=== PATIENT | female | born 1945 | race Caucasian/White ===

== ENCOUNTER 2020-03-28 05:35 | Emergency (ER) | payer MEDICARE, OTHER, SELFPAY ==
[2020-03-28] VITALS (10 sets, daily range): BP systolic 124–166; BP diastolic 58–101; PULSE 99–118; RESP 18–25; TEMP 36.6; O2SAT 92–100; BMI 22.4
--- NOTE | 2020-03-28 05:57 | DI.CT.S_ITS ---
PROCEDURE: CT KIDNEY URETER BLADDER (KUB) INDICATIONS: right flank pain TECHNIQUE: Noncontrast 5 mm thick sections acquired from the diaphragms to the symphysis. 5 mm thick coronal and sagittal reformats were then performed. For radiation dose reduction, the following was used: automated exposure control, adjustment of mA and/or kV according to patient size. COMPARISON: None. FINDINGS: Image quality: There is artifact associated with the metallic hardware. Lung bases: Emphysematous changes are seen at the lung bases. Heart size is normal. Prominent coronary artery calcifications can be seen. Urinary system: There is an oblong stone seen involving the right proximal ureter that measures 14 mm craniocaudal. There is associated moderate right-sided hydroureter and hydronephrosis. Right-sided perinephric fat stranding can be seen. A tiny 1 mm nonobstructing stone can be seen within the right kidney. Small left-sided stones are seen that measure up to 2 mm No left-sided hydronephrosis can be seen. Both kidneys are normal in size. Bladder wall thickness is normal; no calcified bladder stones. Other solid organs: Liver is normal in size. Gallbladder wall is not thickened. Potential minimal gallstones are seen. Pancreas is normal in contours. Spleen is normal in size. No adrenal nodules. Peritoneum and bowel: Unenhanced bowel loops demonstrate normal wall thickness and caliber. No free fluid or air. Colonic diverticulosis is seen, without findings of active diverticulitis. A moderate amount of stool is seen within the colon. A duodenal diverticulum is incidentally noted. Nodes and vessels: No retroperitoneal or mesenteric adenopathy by size criteria. Aorta and inferior vena cava are normal in caliber. Atherosclerotic calcification is noted. Abdominal wall: No ventral hernias. Pelvis: No free pelvic fluid. No inguinal hernias or adenopathy. The uterus is atrophic. No adnexal masses are seen. Bones: A left hip arthroplasty is seen, with associated streak artifact. No suspicious bony lesions. Moderate levoconvex lumbar scoliosis is seen. Relatively prominent lumbar spine degenerative changes are seen. There is a chronic appearing T12 compression deformity, with 50% loss of height centrally. IMPRESSION: 14 mm obstructing stone within the right proximal ureter, with associated hydronephrosis and perinephric fat stranding. There is a moderate amount of stool seen within the colon. Please correlate with an underlying history of constipation. Incidental note is made of: Emphysematous changes Atherosclerotic calcification, including involving the coronary arteries Potential minimal gallstones Duodenal diverticulum Moderate levoconvex scoliosis Remote appearing T12 compression deformity Prominent lumbar degenerative change Left hip arthroplasty, with streak artifact Atrophic uterus Diverticulosis, without active diverticulitis Note: No significant discrepancy from the preliminary report. Dictated by: Supa Hendricks M.D. on 03/28/2020 at 7:21 Approved by: Supa Hendricks M.D. on 03/28/2020 at 7:27
--- NOTE | 2020-03-28 06:23 | ED.ABDPAIN ---
HPI - Abdominal Pain General Chief Complaint: Abdominal Pain Stated Complaint: Pain on right side SOB Time Seen by Provider: 03/28/20 05:57 Source: patient and family Mode of arrival: Wheelchair Limitations: no limitations History of Present Illness HPI narrative: Patient is a 74-year-old female who presents with sudden onset of right flank pain radiating around her abdomen. She says she was doing well until about midnight when he suddenly started. She does feel like it is a dull ache and feels like she has to have a bowel movement but can not. She is feeling nauseated the pain waxes and wanes. She denies any hematuria. No prior history of kidney stones.. She does have a history of COPD on home oxygen but denies any worsening shortness of breath or chest pain MD complaint: abdominal pain Onset (ago): hour(s) Pain Consistency: constant Location: R flank Severity: moderate Quality: aching Radiation: RLQ Migration to: no migration Relieving factors: nothing Exacerbating factors: nothing Related Data Allergies Allergy/AdvReac Type Severity Reaction Status Date / Time No Known Drug Allergies Allergy Verified 03/28/20 05:58 Review of Systems Review of Systems Narrative: GENERAL: Denies chills, fatigue, malaise, fever, sweats, travel HEENT: Denies sinus pain, ear pain, sore throat, difficulty swallowing, neck pain RESPIRATORY: Denies dyspnea, cough, wheezing, hemoptysis, sputum. CARDIOVASCULAR: Denies chest pain, palpitations, orthopnea, edema GASTROINTESTINAL: See HPI : See HPI MUSCULOSKELETAL: Denies weakness, joint pain, or bony pain SKIN: No rash, no erythema, no pruritus NEUROLOGIC: Denies weakness, dizziness, headache, numbness, change in speech, confusion PSYCHIATRIC: No concerning psychosocial issues. 12 point review of systems is negative except for those stated above and HPI Patient History Medical History (Updated 03/28/20 @ 07:48 by Nai Sawyer DO) COPD (chronic obstructive pulmonary disease) Social History Smoking Status: Former smoker Smoking Status: Former smoker alcohol intake frequency: 0-2 drinks per day Substance Use Type: does not use Exam Initial Vital Signs Initial Vital Signs: Vital Signs Temperature 98 F 03/28/20 05:48 Pulse Rate 113 H 03/28/20 05:48 Respiratory Rate 25 H 03/28/20 05:48 Blood Pressure 166/101 H 03/28/20 05:48 Pulse Oximetry 99 03/28/20 05:48 GENERAL: Wall within alert 74-year-old female and in no acute distress. HEENT: Head atraumatic,EOMI, pupils reactive, face symmetric, moist mucous membranes CARDIOVASCULAR: Regular rate and rhythm without murmurs, rubs or gallops. RESPIRATORY: Breath sounds equal bilaterally, no wheezes rales or rhonchi. ABDOMEN: Soft, mild right lower quadrant pain. Normoactive bowel sounds all 4 quadrants. No guarding or rebound. : Right CVA tenderness EXTREMITIES: Normal range of motion, no clubbing or edema. Neurovascularly intact NEUROLOGICAL: Alert and oriented x4.Normal gait and speech. SKIN: Warm, dry, no laceration, no petechiae, no rashes or lesions. Course Orders Ordered: Discontinued Medications Ceftriaxone Sodium/Dextrose (Rocephin) 1 gm in 50 mls @ 100 mls/hr IV NOW ONE Stop: 03/28/20 07:29 Last Infusion: 03/28/20 09:15 Dose: 0 mls/hr Documented by: Admin: 03/28/20 07:30 Dose: 100 mls/hr Documented by: JESSIE Sodium Chloride (Normal Saline 0.9%) 1,000 mls @ 150 mls/hr IV CONT DAVID Last Infusion: 03/28/20 09:50 Dose: 150 mls/hr Documented by: Infusion: 03/28/20 09:50 Dose: 150 mls/hr Documented by: Admin: 03/28/20 07:30 Dose: 150 mls/hr Documented by: JESSIE Ketorolac Tromethamine (Ketorolac 60 Mg/2 Ml Vial) 30 mg IV NOW ONE Stop: 03/28/20 05:58 Last Admin: 03/28/20 06:32 Dose: 30 mg Documented by: JESSIE Ondansetron HCl (Ondansetron 4 Mg/2 Ml Inj) 4 mg IV NOW ONE Stop: 03/28/20 05:58 Last Admin: 03/28/20 06:31 Dose: 4 mg Documented by: JESSIE Vital Signs Vital signs: Vital Signs - 8 hr 03/28/20 05:48 Temperature 98 F Pulse Rate 113 H Respiratory Rate 25 H Blood Pressure 166/101 H Pulse Oximetry 99 MDM - Abdominal Pain Lab Data Attestation: I reviewed the patient's lab results. Result diagrams: 03/28/20 06:30 03/28/20 06:30 Labs: Lab Results 03/28/20 03/28/20 03/28/20 Range/Units 06:25 06:30 06:30 WBC 19.4 H (4.5-11.0) X10^3/uL RBC 3.69 L (4.0-5.2) X10^6/uL Hgb 10.8 L (12.0-16.0) g/dL Hct 33.8 L (36-46) % MCV 91.6 (80-100) fL MCH 29.3 (26-34) PG MCHC 32.0 (30-36) % RDW 13.0 (11.6-14.8) % Plt Count 322 (150-400) X10^3/uL Neut % (Auto) 91.5 H (50-75) % Lymph % (Auto) 2.0 L (25-40) % [place] % (Auto) 6.4 (3-14) % Eos % (Auto) 0.1 L (2-4) % Baso % (Auto) 0.0 (0-2) % Neut # (Auto) 33464 H (6018-4456) /uL Lymph # (Auto) 400 L (0733-3998) /uL [place] # (Auto) 1200 H (0-900) /uL Eos # (Auto) 0 (0-450) /uL Baso # (Auto) 0 (0-100) /uL Sodium 136 L (137-145) mmol/L Potassium 4.4 (3.4-5.1) mmol/L Chloride 97 L (98-107) mmol/L Carbon Dioxide 36 H (22-32) mmol/L BUN 13 (7-17) mg/dL Creatinine 0.55 (0.52-1.04) mg/dL Estimated GFR > 60.0 (>60) mL/min BUN/Creatinine Ratio 23.6 H (6-22) Glucose 150 H (80-110) mg/dL Lactate (0.7-2.1) mmol/L Calcium 9.8 (8.4-10.2) mg/dL Total Bilirubin 0.6 (0.2-1.3) mg/dL AST 28 (14-36) IU/L ALT 20 (<35) IU/L Alkaline Phosphatase 59 (38-126) U/L Total Protein 7.8 (6.3-8.2) g/dL Albumin 4.4 (3.5-5.0) g/dL Globulin 3.4 (1.7-4.1) g/dL Albumin/Globulin Ratio 1.3 (1.0-2.8) Lipase 26 (23-300) U/L Urine RBC None seen (0-5/HPF) Urine WBC 5-10/hpf H (0-5/HPF) Ur Squamous Epith Cells 0-1 /hpf (0-5/HPF) Urine Bacteria Many (>30) H (None) Ur Culture Indicated? Specimen cultured COVID-19 PCR (Negative) 03/28/20 03/28/20 Range/Units 06:30 07:54 WBC (4.5-11.0) X10^3/uL RBC (4.0-5.2) X10^6/uL Hgb (12.0-16.0) g/dL Hct (36-46) % MCV (80-100) fL MCH (26-34) PG MCHC (30-36) % RDW (11.6-14.8) % Plt Count (150-400) X10^3/uL Neut % (Auto) (50-75) % Lymph % (Auto) (25-40) % [place] % (Auto) (3-14) % Eos % (Auto) (2-4) % Baso % (Auto) (0-2) % Neut # (Auto) (8199-0564) /uL Lymph # (Auto) (1358-0446) /uL [place] # (Auto) (0-900) /uL Eos # (Auto) (0-450) /uL Baso # (Auto) (0-100) /uL Sodium (137-145) mmol/L Potassium (3.4-5.1) mmol/L Chloride (98-107) mmol/L Carbon Dioxide (22-32) mmol/L BUN (7-17) mg/dL Creatinine (0.52-1.04) mg/dL Estimated GFR (>60) mL/min BUN/Creatinine Ratio (6-22) Glucose (80-110) mg/dL Lactate 1.8 (0.7-2.1) mmol/L Calcium (8.4-10.2) mg/dL Total Bilirubin (0.2-1.3) mg/dL AST (14-36) IU/L ALT (<35) IU/L Alkaline Phosphatase (38-126) U/L Total Protein (6.3-8.2) g/dL Albumin (3.5-5.0) g/dL Globulin (1.7-4.1) g/dL Albumin/Globulin Ratio (1.0-2.8) Lipase (23-300) U/L Urine RBC (0-5/HPF) Urine WBC (0-5/HPF) Ur Squamous Epith Cells (0-5/HPF) Urine Bacteria (None) Ur Culture Indicated? COVID-19 PCR Negative (Negative) Point of care testing: Urine Dip Bedside Urine Glucose Negative Bedside Urine Bilirubin - Negative Bedside Urine Ketone +/- 5 Urine Specific [place] 1.020 Bedside Urine Occult Blood +++ Bedside Urine pH 7.5 Bedside Urine Protein +/- 15 Bedside Urine Urobilinogen - Negative Bedside Urine Nitrite + Positive Bedside Urine Leukocytes +/- [address] scan - abdomen/pelvis: Radiologist's Impression: Preliminary report 14 x 8.2 x 7 mm stone at the right ureteropelvic junction. Moderate to severe right hydronephrosis. Right perinephric stranding. No other stones in the kidney. MDM Narrative Medical decision making narrative: Patient is found have a large right-sided kidney stone and leukocytosis along with UTI. Concern for infected kidney stone. The patient overall is hemodynamically stable slightly tachycardic but blood pressure remained stable. She is afebrile. Lactate and blood cultures have been added with UTI found it No local on-call Urology at [facility]. 7:[address] Lazo Urology at [facility] updated patient's symptoms test results happy to consult 7:40 a.m. , hospitalist at [facility] happy to accept patient urology consult Discharge Plan Departure Patient Disposition: [facility] Clinical Impression: Acute UTI, Kidney stone on right side
[2020-03-28] MEDS: ONDANSETRON 4 MG/2 ML INJ IV (06:31)
[2020-03-28] MEDS: KETOROLAC 60 MG/2 ML VIAL 30 MG IV (06:32)
[2020-03-28 06:35] LABS: Add Manual Diff / Slide Review NO; Basophils Absolute Auto 0 /uL (0-100); Eosinophils Absolute Auto 0 /uL (0-450); Eosinophils Percent Auto 0.1 % (2-4); Hematocrit 33.8 % (36-46); Hemoglobin 10.8 g/dL (12.0-16.0); Lymphocytes Absolute Auto 400 /uL (1100-4500); Mean Corpuscular Hemoglobin 29.3 PG (26-34); Mean Corpuscular Volume 91.6 fL (80-100); Monocytes Absolute Auto 1200 /uL (0-900); Monocytes Percent Auto 6.4 % (3-14); Neutrophils Absolute Auto 17700 /uL (1500-7000); Neutrophils Percent Auto 91.5 % (50-75); Platelet Count 322 X10^3/uL (150-400); Red Blood Cell Count 3.69 X10^6/uL (4.0-5.2); White Blood Cell Count 19.4 X10^3/uL (4.5-11.0)
[2020-03-28 06:37] LABS: RBC Urine None Seen (0-5/HPF)
[2020-03-28 06:46] LABS: Alanine Aminotransferase 20 IU/L (<35); Albumin 4.4 g/dL (3.5-5.0); Albumin Globulin Ratio 1.3 (1.0-2.8); Alkaline Phosphatase 59 U/L (38-126); Aspartate Aminotransferase 28 IU/L (14-36); BUN Creatinine Ratio 23.6 (6-22); Bilirubin Total 0.6 mg/dL (0.2-1.3); Blood Urea Nitrogen 13 mg/dL (7-17); Calcium 9.8 mg/dL (8.4-10.2); Carbon Dioxide 36 mmol/L (22-32); Chloride 97 mmol/L (98-107); Estimated Glomerular Filt Rate > 60.0 mL/min (>60); Globulin 3.4 g/dL (1.7-4.1); Glucose 150 mg/dL (80-110); HEMOLYSIS < 15 (0-50); Lipase 26 U/L (23-300); Potassium 4.4 mmol/L (3.4-5.1); Sodium 136 mmol/L (137-145); Total Protein 7.8 g/dL (6.3-8.2)
[2020-03-28 06:52] LABS: Bacteria Urine Many (>30); Culture Indicated Urine Specimen Cultured; Squamous Epithelial Cell Urine 0-1 /HPF (0-5/HPF); WBC Urine 5-10/HPF (0-5/HPF)
[2020-03-28] MEDS: CEFTRIAXONE 1 GM/50 ML FROZ.PIGGY IV (07:30)
[2020-03-28] MEDS: SODIUM CHLORIDE 0.9% 1,000 ML 150 ML IV (07:30)
[2020-03-28 07:43] LABS: Lactate (Lactic Acid) 1.8 mmol/L (0.7-2.1)
[2020-03-28 08:18] LABS: COVID19 -Nasal RAPID Negative (Negative)
--- NOTE | 2020-03-29 15:24 | PC.NURSE ---
Preliminary reports for urine and blood cultures faxed to [facility] in [facility] for continuity of care
[2020-03-29 19:38] LABS: Acinetobacter baumannii Not Detected (Not Detect); Candida albicans Not Detected (Not Detect); Candida glabrata Not Detected (Not Detect); Candida krusei Not Detected (Not Detect); Candida parapsilosis Not Detected (Not Detect); Candida tropicalis Not Detected (Not Detect); E. coli Not Detected (Not Detect); Enterobacter cloacae complex Not Detected (Not Detect); Enterococcus species Not Detected (Not Detect); Haemophilus influenzae Not Detected (Not Detect); KPC (carbapenem-resist gene) Not Detected (Not Detect); Listeria monocytogenes Not Detected (Not Detect); Methicillin-resistant gene Not Detected (Not Detect); Neisseria meningitidis Not Detected (Not Detect); Pseudomonas aeruginosa Not Detected (Not Detect); Serratia marcescens Not Detected (Not Detect); Staphylococcus species Not Detected (Not Detect); Streptococcus agalactiae (Gr B Not Detected (Not Detect); Streptococcus pneumonia Not Detected (Not Detect); Streptococcus pyogenes (Gr A) Not Detected (Not Detect); Streptococcus species Not Detected (Not Detect); Vancomycin-rest genes A/B Not Detected (Not Detect)
[2020-03-29 19:39] LABS: Enterobacteriaceae species Detected (Not Detect); Proteus species Detected (Not Detect)
== END 2020-03-28 10:08 | disposition short-term general hospital (02) ==
PROVIDERS: Emergency Provider Emergency Medicine
DX: N39.0 Urinary tract infection, site not specified (principal); N20.0 Calculus of kidney; Z20.828 Contact with and (suspected) exposure to other viral communicable diseases; N13.30 Unspecified hydronephrosis; D72.829 Elevated white blood cell count, unspecified; R00.0 Tachycardia, unspecified
CPT/HCPCS: 36415; 74176; 80053; 81003; 81015; 83605; 83690; 85025; 87040; 87077; 87086; 87150; 87186; 87205; 87635; 96361; 96365; 96366; 96375; 99285; J1885; J2405

== ENCOUNTER 2020-11-07 10:43 | Emergency (ER) | payer MEDICARE, OTHER, SELFPAY ==
--- NOTE | 2020-11-07 10:51 | DI.RAD.S_ITS ---
PROCEDURE: XR HIP W PEL IF DONE LT 2V INDICATIONS: severe left hip pain, no obvious injury TECHNIQUE: AP pelvis with lateral view(s) of the left hip(s). COMPARISON: None. FINDINGS: Bones: No fractures or dislocations. Pelvic ring appears intact. No suspicious bony lesions. Left hip arthroplasty hardware is seen. No findings of hardware failure or hardware loosening are seen. Age-appropriate lower lumbar spine degenerative changes are noted. Soft tissues: The visualized bowel gas pattern is normal. No suspicious soft tissue calcifications. IMPRESSION: Unremarkable left hip arthroplasty hardware by plain film. Dictated by: Supa Hendricks M.D. on 11/07/2020 at 10:18 Approved by: Supa Hendricks M.D. on 11/07/2020 at 10:18
[2020-11-07 10:56] VITALS: BP 144/94; PULSE 90; RESP 16; TEMP 36.4; O2SAT 98; BMI 23.1
--- NOTE | 2020-11-07 11:50 | ED_ITS ---
HPI - Extremity Problem General Chief complaint: Extremity Problem,Nontraumatic Stated complaint: PAIN LEFT HIP Time Seen by Provider: 11/07/20 10:48 History of Present Illness HPI Narrative: 75-year-old female former smoker with history of COPD on home oxygen and history of chronic low back and hip pain presents with her son in a wheelchair and a chief complaint of increased pain. She denies any injury. She denies any fever or chills. She denies any trouble controlling bowel or bl adder. She denies any numbness or tingling. She does state that she has pain in her left lower back and goes down her leg to just above the knee. She has been in sufficient pain that has been affecting her appetite but she denies vomiting or diarrhea. Related Data Home Medications Medication Instructions Recorded Confirmed albuterol sulfate 90 mcg/actuation 90 mcg INHALATION PRN 11/07/20 aerosol inhaler (ProAir HFA) apixaban 5 mg tablet (Eliquis) 5 mg PO BID 11/07/20 11/07/20 atorvastatin 20 mg tablet 20 mg PO DAILY 11/07/20 11/07/20 citalopram 20 mg tablet 20 mg PO DAILY 11/07/20 11/07/20 diltiazem HCl 120 mg 120 mg PO DAILY 11/07/20 11/07/20 capsule,extended release 24 hr fluticasone 250 mcg-salmeterol 50 INHALATION 11/07/20 mcg/dose blistr powdr for inhalation (Advair Diskus) fluticasone propionate 50 50 mcg INTRANASAL BID 11/07/20 11/07/20 mcg/actuation nasal spray,suspension gabapentin 300 mg capsule 300 mg PO TID 11/07/20 11/07/20 hydrocodone 7.5 mg-acetaminophen 1 tab PO QID 11/07/20 11/07/20 325 mg tablet ibandronate 150 mg tablet 150 mg PO DAILY 11/07/20 11/07/20 levalbuterol HCl 1.25 mg/3 mL 1.25 mg INHALATION Q8HR 11/07/20 11/07/20 solution for nebulization montelukast 10 mg tablet 10 mg PO DAILY 11/07/20 11/07/20 tiotropium bromide 2.5 2.5 mcg INHALATION BID 11/07/20 11/07/20 mcg/actuation mist for inhalation (Spiriva Respimat) Previous Rx's Medication Instructions Recorded hydrocodone 5 mg-acetaminophen 325 1 tab PO Q4-6H PRN #30 tab 11/07/20 mg tablet methylprednisolone 4 mg tablets in See Rx Instructions .ROUTE 11/07/20 a dose pack (Medrol ([place])) .COMPLEX #21 ea Allergies Allergy/AdvReac Type Severity Reaction Status Date / Time No Known Drug Allergies Allergy Verified 03/28/20 05:58 Review of Systems Review of Systems Narrative: GENERAL: Denies chills, fatigue, malaise, fever, sweats. HEENT: Denies sinus pain, ear pain, sore throat, difficulty swallowing, dizziness. RESPIRATORY: Denies dyspnea, cough, wheezing, hemoptysis, sputum. CARDIOVASCULAR: Denies chest pain, palpitations, orthopnea, edema, GASTROINTESTINAL: Denies nausea, vomiting, abdominal pain, diarrhea, constipation, melena. : Denies dysuria, frequency, incontinence, hematuria, urinary retention. MUSCULOSKELETAL: denies weakness, joint pain, or bony pain SKIN: Denies rash, skin lesions, or other NEUROLOGIC: Denies weakness, headache, numbness, change in speech, confusion, seizures, incoordination. PSYCHIATRIC: No concerning psychosocial issues. 12 point review of systems is negative except for those stated above Patient History Medical History (Updated 11/07/20 @ 14:22 by Efraín Londono DO) COPD (chronic obstructive pulmonary disease) Social History Smoking Status: Former smoker Smoking Status: Former smoker alcohol intake frequency: 0-2 drinks per day Substance Use Type: does not use Exam Narrative Exam Narrative: GENERAL: [75] year old patient appears stated age. Well- developed patient, in mild distress. Frail and elderly HEAD: Atraumatic. Normocephalic. EYES: Pupils equal round and reactive. Extraocular motions intact. No scleral icterus. No injection or drainage. ENT: Moist mucous membranes Nose without bleeding, purulent drainage. Throat without erythema, tonsillar hypertrophy or exudate. Airway patent. NECK: Trachea midline. Non tender CARDIOVASCULAR: Regular rate and rhythm without murmurs, gallops, or rubs. RESPIRATORY: Clear to auscultation. Breath sounds equal bilaterally. No wheezes, rales, or rhonchi. GASTROINTESTINAL: Abdomen soft, non-tender, nondistended. EXTREMITIES: No edema or joint tenderness. BACK: friction paint machine tender but free of any obvious external abnormalities. Patient exam notes decreased range of motion and muscle spasm, but no CVA tenderness, or ve rtebral point tenderness. There are no symptoms of cauda equina such as saddle anesthesia, and decreased reflexes, decreased sensation or strength. NEURO: AOx3. SKIN: No rash or erythema of visible areas Initial Vital Signs Initial Vital Signs: Vital Signs Temperature 97.6 F 11/07/20 10:56 Pulse Rate 90 11/07/20 10:56 Respiratory Rate 16 11/07/20 10:56 Blood Pressure 144/94 H 11/07/20 10:56 Pulse Oximetry 98 11/07/20 10:56 Course Orders Ordered: Discontinued Medications Cyclobenzaprine HCl (Cyclobenzaprine 10 Mg Tablet) 10 mg PO NOW ONE Stop: 11/07/20 12:49 Last Admin: 11/07/20 12:52 Dose: 10 mg Documented by: [email or web address] Fentanyl (Fentanyl 100 Mcg/2 Ml Inj) 50 mcg IV NOW ONE Stop: 11/07/20 12:06 Last Admin: 11/07/20 12:14 Dose: 50 mcg Documented by: [email or web address] Sodium Chloride (Normal Saline 0.9%) 1,000 mls @ 1,000 mls/hr IV BOLUS ONE Stop: 11/07/20 13:04 Last Infusion: 11/07/20 14:37 Dose: 0 mls/hr Documented by: [email or web address] Admin: 11/07/20 12:14 Dose: 1,000 mls/hr Documented by: [email or web address] Reevaluation(s) Reevaluation #1: Patient is feeling significant improvement in symptoms after the above-stated therapies. Vital Signs Vital signs: Vital Signs - 8 hr 11/07/20 10:56 11/07/20 12:41 Temperature 97.6 F Pulse Rate 90 98 H Respiratory Rate 16 14 Blood Pressure 144/94 H 163/78 H Pulse Oximetry 98 100 MDM - Extremity (Nontraumatic) Lab Data Result diagrams: 11/07/20 12:23 11/07/20 12:23 Labs: Lab Results 11/07/20 11/07/20 Range/Units 12:23 12:23 WBC 5.0 (4.5-11.0) X10^3/uL RBC 3.18 L (4.0-5.2) X10^6/uL Hgb 10.1 L (12.0-16.0) g/dL Hct 31.2 L (36-46) % MCV 98.2 (80-100) fL MCH 31.8 (26-34) PG MCHC 32.4 (30-36) % RDW 14.7 (11.6-14.8) % Plt Count 243 (150-400) X10^3/uL Neut % (Auto) 72.2 (50-75) % Lymph % (Auto) 15.3 L (25-40) % [place] % (Auto) 10.9 (3-14) % Eos % (Auto) 1.2 L (2-4) % Baso % (Auto) 0.4 (0-2) % Neut # (Auto) 3600 (1203-8812) /uL Lymph # (Auto) 800 L (5363-9737) /uL [place] # (Auto) 500 (0-900) /uL Eos # (Auto) 100 (0-450) /uL Baso # (Auto) 0 (0-100) /uL Sodium 132 L (137-145) mmol/L Potassium 4.2 (3.4-5.1) mmol/L Chloride 100 (98-107) mmol/L Carbon Dioxide 27 (22-32) mmol/L BUN 10 (7-17) mg/dL Creatinine 0.50 L (0.52-1.04) mg/dL Estimated GFR > 60.0 (>60) mL/min BUN/Creatinine Ratio 20.0 (6-22) Glucose 106 (80-110) mg/dL Calcium 8.8 (8.4-10.2) mg/dL MDM Narrative Medical decision making narrative: Multiple etiologies of back pain considered including; Epidural abscess, cauda equina, mass occupying lesion, and other considered, however no red flag findings suggestive of neurosurgical emergency are present. History, physical, imaging and labs are reassuring. Improvement of symptoms with traditional therapies is reassuring. Patient given extensive return precautions and questions answered to her apparent satisfaction Discharge Plan Departure Patient Disposition: Home Clinical Impression: Acute hip pain Qualifiers: Laterality: left Qualified Code(s): M25.552 - Pain in left hip Instructions: DI for Hip Pain Activity Restrictions/Additional Instructions: *You have been diagnosed with [acute on chronic hip pain] *What to do: *Please continue to take your regular medications as directed. [x ] New medication prescriptions sent to your pharmacy: [ ] [ ] New medication written as a paper prescription [ ] No new medications given *Please follow up with your primary care provider in 2-3 days, call for an appointment. Let them know you were seen in the Emergency Department and that we ask that you be seen in follow up. We will electronically transmit a record of today's note if your PCP is in our system *If you do not have a primary care provider please contact the [facility] Resource line at [phone]. They will ask some questions about your medical history and help get you set up with a doctor in the community. *Return to Emergency Department if you should have any new, worsening or concerning symptoms, such as [fever greater than 101 F, shaking chills, worsening pain, persistent vomiting or other bothersome symptoms] Prescriptions: New hydrocodone-acetaminophen 5-325 mg tablet 1 tab PO Q4-6H PRN (Reason: pain) Qty: 30 RF: 0 methylprednisolone [Medrol ([place])] 4 mg tablets,dose pack See Rx Instructions .ROUTE .COMPLEX Qty: 21 RF: 0 No Action fluticasone propion-salmeterol [Advair Diskus] 250-50 mcg/dose blister with device INHALATION RF: 0 atorvastatin 20 mg tablet 20 mg PO DAILY RF: 0 citalopram 20 mg tablet 20 mg PO DAILY RF: 0 hydrocodone-acetaminophen 7.5-325 mg tablet 1 tab PO QID RF: 0 gabapentin 300 mg capsule 300 mg PO TID RF: 0 diltiazem HCl 120 mg capsule,extended release 24hr 120 mg PO DAILY RF: 0 montelukast 10 mg tablet 10 mg PO DAILY RF: 0 levalbuterol HCl 1.25 mg/3 mL solution for nebulization 1.25 mg INHALATION Q8HR RF: 0 albuterol sulfate [ProAir HFA] 90 mcg/actuation HFA aerosol inhaler 90 mcg INHALATION PRN (Reason: Bronchodilation) RF: 0 fluticasone propionate 50 mcg/actuation spray,suspension 50 mcg INTRANASAL BID RF: 0 ibandronate 150 mg tablet 150 mg PO DAILY RF: 0 Spiriva Respimat 2.5 mcg/actuation mist 2.5 mcg INHALATION BID RF: 0 Eliquis 5 mg tablet 5 mg PO BID RF: 0
[2020-11-07] MEDS: fentaNYL 100 MCG/2 ML INJ 50 MCG IV (12:14)
[2020-11-07] MEDS: SODIUM CHLORIDE 0.9% 1,000 ML 1000 ML IV (12:14)
[2020-11-07 12:31] LABS: Add Manual Diff / Slide Review NO; Basophils Absolute Auto 0 /uL (0-100); Basophils Percent Auto 0.4 % (0-2); Eosinophils Absolute Auto 100 /uL (0-450); Eosinophils Percent Auto 1.2 % (2-4); Hematocrit 31.2 % (36-46); Hemoglobin 10.1 g/dL (12.0-16.0); Lymphocytes Absolute Auto 800 /uL (1100-4500); Lymphocytes Percent Auto 15.3 % (25-40); Mean Corpuscular HGB Conc 32.4 % (30-36); Mean Corpuscular Hemoglobin 31.8 PG (26-34); Mean Corpuscular Volume 98.2 fL (80-100); Monocytes Absolute Auto 500 /uL (0-900); Monocytes Percent Auto 10.9 % (3-14); Neutrophils Absolute Auto 3600 /uL (1500-7000); Neutrophils Percent Auto 72.2 % (50-75); Platelet Count 243 X10^3/uL (150-400); Red Blood Cell Count 3.18 X10^6/uL (4.0-5.2); Red Cell Distribution Width 14.7 % (11.6-14.8)
[2020-11-07 12:41] VITALS: BP 163/78; PULSE 98; RESP 14; O2SAT 100
[2020-11-07 12:42] LABS: Blood Urea Nitrogen 10 mg/dL (7-17); Calcium 8.8 mg/dL (8.4-10.2); Carbon Dioxide 27 mmol/L (22-32); Chloride 100 mmol/L (98-107); Estimated Glomerular Filt Rate > 60.0 mL/min (>60); Glucose 106 mg/dL (80-110); HEMOLYSIS < 15 (0-50); Potassium 4.2 mmol/L (3.4-5.1); Sodium 132 mmol/L (137-145)
[2020-11-07] MEDS: CYCLOBENZAPRINE 10 MG TABLET PO (12:52)
[2020-11-07 13:00] VITALS: PULSE 97; O2SAT 100
[2020-11-07 13:01] VITALS: BP 187/95; PULSE 103; O2SAT 100
[2020-11-07 14:38] VITALS: BP 189/105; PULSE 98; RESP 18; O2SAT 100
== END 2020-11-07 14:39 | disposition home or self-care (01) ==
PROVIDERS: Emergency Provider Emergency Medicine
DX: M25.552 Pain in left hip (principal)
CPT/HCPCS: 36415; 73502; 80048; 85025; 96361; 96374; 99284; J3010

== ENCOUNTER 2020-12-03 02:47 | Observation (INO) | payer MEDICARE, OTHER, SELFPAY ==
[2020-12-03] VITALS (15 sets, daily range): BP systolic 103–147; BP diastolic 50–84; PULSE 77–111; RESP 14–20; TEMP 36.2–36.9; O2SAT 96–100; BMI 23.5
--- NOTE | 2020-12-03 02:58 | ED_ITS ---
HPI - GI Bleed General Chief complaint: GI Bleed Stated complaint: anal bleeding Time Seen by Provider: 12/03/20 02:50 History of Present Illness HPI Narrative: 75-year-old female former smoker with COPD on home oxygen at 3 L (5 L when she goes out), on Eliquis for AFib presents with her son and a chief complaint of a large amount of painless bright red bleeding per rectum this evening. She is not dizzy nor weak nor lightheaded. She was at home and had bleeding and was attempting to clean it up, and in doing so lost her balance and fell over. She denies hitting her head nor suffering any injury as a consequence of that fall. She denies any history of GI bleeding in the past. On further questioning she does describe some crampy lower abdominal discomfort. She denies any recent change in medications or diet. Related Data Home Medications Medication Instructions Recorded Confirmed albuterol sulfate 90 mcg/actuation 90 mcg INHALATION PRN 11/07/20 aerosol inhaler (ProAir HFA) apixaban 5 mg tablet (Eliquis) 5 mg PO BID 11/07/20 11/07/20 atorvastatin 20 mg tablet 20 mg PO DAILY 11/07/20 11/07/20 citalopram 20 mg tablet 20 mg PO DAILY 11/07/20 11/07/20 diltiazem HCl 120 mg 120 mg PO DAILY 11/07/20 11/07/20 capsule,extended release 24 hr fluticasone 250 mcg-salmeterol 50 INHALATION 11/07/20 mcg/dose blistr powdr for inhalation (Advair Diskus) fluticasone propionate 50 50 mcg INTRANASAL BID 11/07/20 11/07/20 mcg/actuation nasal spray,suspension gabapentin 300 mg capsule 300 mg PO TID 11/07/20 11/07/20 hydrocodone 7.5 mg-acetaminophen 1 tab PO QID 11/07/20 11/07/20 325 mg tablet ibandronate 150 mg tablet 150 mg PO DAILY 11/07/20 11/07/20 levalbuterol HCl 1.25 mg/3 mL 1.25 mg INHALATION Q8HR 11/07/20 11/07/20 solution for nebulization montelukast 10 mg tablet 10 mg PO DAILY 11/07/20 11/07/20 tiotropium bromide 2.5 2.5 mcg INHALATION BID 11/07/20 11/07/20 mcg/actuation mist for inhalation (Spiriva Respimat) Previous Rx's Medication Instructions Recorded hydrocodone 5 mg-acetaminophen 325 1 tab PO Q4-6H PRN #30 tab 11/07/20 mg tablet methylprednisolone 4 mg tablets in See Rx Instructions .ROUTE 11/07/20 a dose pack (Medrol ([place])) .COMPLEX #21 ea Allergies Allergy/AdvReac Type Severity Reaction Status Date / Time No Known Drug Allergies Allergy Verified 03/28/20 05:58 Review of Systems Review of Systems Narrative: GENERAL: Denies chills, fatigue, malaise, fever, sweats. HEENT: Denies sinus pain, ear pain, sore throat, difficulty swallowing, dizzi ness. RESPIRATORY: Denies dyspnea, cough, wheezing, hemoptysis, sputum. CARDIOVASCULAR: Denies chest pain, palpitations, orthopnea, edema, GASTROINTESTINAL: See HPI : Denies dysuria, frequency, incontinence, hematuria, urinary retention. MUSCULOSKELETAL: denies weakness, joint pain, or bony pain SKIN: Denies rash, skin lesions, or other NEUROLOGIC: Denies weakness, headache, numbness, change in speech, confusion, seizures, incoordination. PSYCHIATRIC: No concerning psychosocial issues. 12 point review of systems is negative except for those stated above Patient History Medical History COPD (chronic obstructive pulmonary disease) Social History Smoking Status: Former smoker Smoking Status: Former smoker alcohol intake frequency: 0-2 drinks per day Substance Use Type: does not use Exam Narrative Exam Narrative: GENERAL: [75 year old patient appears stated age. Chronically ill, requires some assistance getting from cart but no significant distress HEAD: Atraumatic. Normocephalic. EYES: Pupils equal round and reactive. Extraocular motions intact. No scleral icterus. No injection or drainage. ENT: Nose without bleeding, purulent drainage. Throat without erythema, ton sillar hypertrophy or exudate. Airway patent. NECK: Trachea midline. Non tender CARDIOVASCULAR: Regular rate and rhythm without murmurs, gallops, or rubs. RESPIRATORY: No significant work of breathing, prolonged expiratory phase with decreased breath sounds bilaterally GASTROINTESTINAL: Abdomen soft, non-tender, nondistended. RECTAL: multiple external hemorrhoids, no obvious bleeding. Bright red blood noted on her underwear and also papertowel, no obvious active bleeding on digital rectal exam. This portion of exam performed with patient permission and female nursing device processing engineer at the bedside EXTREMITIES: No edema or joint tenderness. BACK: Nontender without deformity or crepitance. No flank tenderness. NEURO: AOx3. SKIN: No rash or erythema of visible areas Initial Vital Signs Initial Vital Signs: Vital Signs Temperature 98.5 F 12/03/20 03:00 Pulse Rate 111 H 12/03/20 03:00 Respiratory Rate 20 12/03/20 03:00 Blood Pressure 116/76 12/03/20 03:00 Pulse Oximetry 98 12/03/20 03:00 Course Orders Ordered: ED Orders 12/03/20 02:57 COVID19 - ADMIT (ACTIVITIES COUNSELOR swab/PCR) Stat 12/03/20 03:10 Complete Blood Count AUTO DIFF Stat Comprehensive Metabolic Panel Stat Partial Thromboplastin Time Stat Prothrombin Time INR Stat Type and Screen Stat 12/03/20 03:31 EKG-12 Lead Stat Acetaminophen (Acetaminophen 325 Mg Tablet) 650 mg PO Q6HR PRN PRN Reason: Fever/Mild Pain (1-3) Atorvastatin Calcium (Atorvastatin 20 Mg Tablet) 20 mg PO DAILY DAVID Diltiazem HCl (Diltiazem Cd 120 Mg Cap) 120 mg PO DAILY DAVID Montelukast Sodium (Montelukast 10 Mg Tablet) 10 mg PO DAILY DAVID Naloxone HCl (Naloxone 0.4 Mg/Ml Vial) 0.2 mg IV Q2MIN PRN PRN Reason: Opiate Reversal Non-Formulary Medication (Citalopram) 20 mg PO DAILY DAVID Discontinued Medications Pantoprazole Sodium (Pantoprazole 40 Mg Vial) 80 mg IV NOW ONE Stop: 12/03/20 02:58 Last Admin: 12/03/20 03:12 Dose: 80 mg Documented by: CINDY Vital Signs Vital signs: Vital Signs - 8 hr 12/03/20 03:00 Temperature 98.5 F Pulse Rate 111 H Respiratory Rate 20 Blood Pressure 116/76 Pulse Oximetry 98 MDM - GI Bleed Lab Data Result diagrams: 12/03/20 03:10 12/03/20 03:10 Labs: Lab Results 12/03/20 12/03/20 12/03/20 Range/Units 03:10 03:10 03:10 WBC 7.8 (4.5-11.0) X10^3/uL RBC 3.03 L (4.0-5.2) X10^6/uL Hgb 9.5 L (12.0-16.0) g/dL Hct 29.4 L (36-46) % MCV 97.1 (80-100) fL MCH 31.2 (26-34) PG MCHC 32.2 (30-36) % RDW 13.1 (11.6-14.8) % Plt Count 228 (150-400) X10^3/uL Neut % (Auto) 79.4 H (50-75) % Lymph % (Auto) 11.5 L (25-40) % [place] % (Auto) 7.6 (3-14) % Eos % (Auto) 1.2 L (2-4) % Baso % (Auto) 0.3 (0-2) % Neut # (Auto) 6200 (9508-2002) /uL Lymph # (Auto) 900 L (5917-8417) /uL [place] # (Auto) 600 (0-900) /uL Eos # (Auto) 100 (0-450) /uL Baso # (Auto) 0 (0-100) /uL PT (10.1-12.7) SECONDS INR (0.9-1.3) APTT (26.4-36.2) SECONDS Sodium 133 L (137-145) mmol/L Potassium 4.5 (3.4-5.1) mmol/L Chloride 95 L (98-107) mmol/L Carbon Dioxide 34 H (22-32) mmol/L BUN 11 (7-17) mg/dL Creatinine 0.58 (0.52-1.04) mg/dL Estimated GFR > 60.0 (>60) mL/min BUN/Creatinine Ratio 19.0 (6-22) Glucose 137 H (80-110) mg/dL Calcium 9.1 (8.4-10.2) mg/dL Total Bilirubin 0.3 (0.2-1.3) mg/dL AST 18 (14-36) IU/L ALT 9 (<35) IU/L Alkaline Phosphatase 75 (38-126) U/L Total Protein 6.5 (6.3-8.2) g/dL Albumin 3.6 (3.5-5.0) g/dL Globulin 2.9 (1.7-4.1) g/dL Albumin/Globulin Ratio 1.2 (1.0-2.8) Blood Type A Negative Antibody Screen Negative 12/03/20 Range/Units 03:10 WBC (4.5-11.0) X10^3/uL RBC (4.0-5.2) X10^6/uL Hgb (12.0-16.0) g/dL Hct (36-46) % MCV (80-100) fL MCH (26-34) PG MCHC (30-36) % RDW (11.6-14.8) % Plt Count (150-400) X10^3/uL Neut % (Auto) (50-75) % Lymph % (Auto) (25-40) % [place] % (Auto) (3-14) % Eos % (Auto) (2-4) % Baso % (Auto) (0-2) % Neut # (Auto) (0937-8204) /uL Lymph # (Auto) (7170-4499) /uL [place] # (Auto) (0-900) /uL Eos # (Auto) (0-450) /uL Baso # (Auto) (0-100) /uL PT 12.6 (10.1-12.7) SECONDS INR 1.1 (0.9-1.3) APTT 41 H (26.4-36.2) SECONDS Sodium (137-145) mmol/L Potassium (3.4-5.1) mmol/L Chloride (98-107) mmol/L Carbon Dioxide (22-32) mmol/L BUN (7-17) mg/dL Creatinine (0.52-1.04) mg/dL Estimated GFR (>60) mL/min BUN/Creatinine Ratio (6-22) Glucose (80-110) mg/dL Calcium (8.4-10.2) mg/dL Total Bilirubin (0.2-1.3) mg/dL AST (14-36) IU/L ALT (<35) IU/L Alkaline Phosphatase (38-126) U/L Total Protein (6.3-8.2) g/dL Albumin (3.5-5.0) g/dL Globulin (1.7-4.1) g/dL Albumin/Globulin Ratio (1.0-2.8) Blood Type Antibody Screen MDM Narrative Medical decision making narrative: Patient reports large amount of bright red bleeding along with lower abdominal cramping. She does have external hemorrhoids but there is no evidence of active bleeding, this along with the complaint of lower abdominal cramping raises my suspicion of bleeding within the bowels as a component of this. Patient has chronic medical history and the use of anticoagulants will require trending her hemoglobin and she will likely need colonoscopy. Discharge Plan Departure Patient Disposition: Admitted as Observation Clinical Impression: Lower gastrointestinal hemorrhage Admit Date/Time: 12/03/20 03:50 Admit Provider: Nicolette Liu
[2020-12-03] MEDS: PANTOPRAZOLE 40 MG VIAL 80 MG IV (03:12)
[2020-12-03 03:22] LABS: Add Manual Diff / Slide Review NO; Basophils Absolute Auto 0 /uL (0-100); Basophils Percent Auto 0.3 % (0-2); Eosinophils Absolute Auto 100 /uL (0-450); Eosinophils Percent Auto 1.2 % (2-4); Hematocrit 29.4 % (36-46); Hemoglobin 9.5 g/dL (12.0-16.0); Lymphocytes Absolute Auto 900 /uL (1100-4500); Lymphocytes Percent Auto 11.5 % (25-40); Mean Corpuscular HGB Conc 32.2 % (30-36); Mean Corpuscular Hemoglobin 31.2 PG (26-34); Mean Corpuscular Volume 97.1 fL (80-100); Monocytes Absolute Auto 600 /uL (0-900); Monocytes Percent Auto 7.6 % (3-14); Neutrophils Absolute Auto 6200 /uL (1500-7000); Neutrophils Percent Auto 79.4 % (50-75); Platelet Count 228 X10^3/uL (150-400); Red Blood Cell Count 3.03 X10^6/uL (4.0-5.2); Red Cell Distribution Width 13.1 % (11.6-14.8); White Blood Cell Count 7.8 X10^3/uL (4.5-11.0)
[2020-12-03 03:29] LABS: INR 1.1 (0.9-1.3); Prothrombin Time 12.6 SECONDS (10.1-12.7)
[2020-12-03 03:32] LABS: PTT Partial Thromboplastin Tim 41 SECONDS (26.4-36.2)
[2020-12-03 03:33] LABS: Alanine Aminotransferase 9 IU/L (<35); Albumin 3.6 g/dL (3.5-5.0); Albumin Globulin Ratio 1.2 (1.0-2.8); Alkaline Phosphatase 75 U/L (38-126); Aspartate Aminotransferase 18 IU/L (14-36); Bilirubin Total 0.3 mg/dL (0.2-1.3); Blood Urea Nitrogen 11 mg/dL (7-17); Calcium 9.1 mg/dL (8.4-10.2); Carbon Dioxide 34 mmol/L (22-32); Chloride 95 mmol/L (98-107); Estimated Glomerular Filt Rate > 60.0 mL/min (>60); Globulin 2.9 g/dL (1.7-4.1); Glucose 137 mg/dL (80-110); HEMOLYSIS < 15 (0-50); Potassium 4.5 mmol/L (3.4-5.1); Sodium 133 mmol/L (137-145); Total Protein 6.5 g/dL (6.3-8.2)
[2020-12-03 04:44] LABS: COVID19 - ADMIT (NP swab/PCR) Negative (Negative)
--- NOTE | 2020-12-03 05:02 | P.HP_ITS ---
History of Present Illness History of Present Illness Date Patient Seen: 12/03/20 Time Patient Seen: 05:02 Date of Onset of Symptoms: 12/03/20 Chief complaint: Rectal bleeding, just started Eliquis Narrative: Berna House is a 75 y.o. female with a history of atrial fibrillaton, COPD and asthma presented this evening due to getting up in the middle the night to go the bathroom in finding that she had quite a bit of blood in her depends. She states that her lower abdomen is achy. She denies any nausea vomiting, fever, sweats or chills, she does endorse lower extremity swelling and has been using a diuretic that she was recently prescribed for this however I am not seeing this in her home med list. She does endorse a history of hemorrhoids and states has been at least 10 years since having a colonoscopy. She does endorse weight gain from the high 130s to the mid-140s. She is afebrile, blood pressure 116/76, heart rate 111, respiratory rate 20, oxygen saturation of 90% on 2 L she weighs 62.1 kg with a BMI of 23.5 WBC is 7.8 RBC 3.03 hemoglobin 9.4 and hematocrit is 29.4 with a platelet count of 228, sodium 133 potassium 4.5 chloride 95 bicarb 34 creatinine 0.58 with a GFR greater than 60 glucose is 137, liver enzymes within normal limits and COVID-19 PCR is negative. She does have a recent history of being on a Medrol Dosepak which may explain her elevated glucose. Patient History Medical History (Updated 12/03/20 @ 05:21 by JUNITO Casas) COPD (chronic obstructive pulmonary disease) Surgical History (Updated 12/03/20 @ 05:21 by JUNITO Casas) History of nephrolithotomy with removal of calculi Family & Social History Family History (Updated 12/03/20 @ 05:22 by JUNITO Casas) Mother Coronary artery disease Sister Heart problem Safety & Behavioral: Feels Safe in Current Yes Environment Tobacco & Substance use: Smoking Status Former smoker alcohol intake frequency Former Substance Use Type does not use Meds Home Medications and Allergies Home Medications Medication Instructions Recorded Confirmed Type albuterol sulfate 90 mcg/actuation 90 mcg INHALATION PRN 11/07/20 History aerosol inhaler (ProAir HFA) apixaban 5 mg tablet (Eliquis) 5 mg PO BID 11/07/20 11/07/20 History atorvastatin 20 mg tablet 20 mg PO DAILY 11/07/20 11/07/20 History citalopram 20 mg tablet 20 mg PO DAILY 11/07/20 11/07/20 History diltiazem HCl 120 mg 120 mg PO DAILY 11/07/20 11/07/20 History capsule,extended release 24 hr fluticasone 250 mcg-salmeterol 50 INHALATION 11/07/20 History mcg/dose blistr powdr for inhalation (Advair Diskus) fluticasone propionate 50 50 mcg INTRANASAL BID 11/07/20 11/07/20 History mcg/actuation nasal spray,suspension gabapentin 300 mg capsule 300 mg PO TID 11/07/20 11/07/20 History hydrocodone 5 mg-acetaminophen 325 1 tab PO Q4-6H PRN #30 tab 11/07/20 Rx mg tablet hydrocodone 7.5 mg-acetaminophen 1 tab PO QID 11/07/20 11/07/20 History 325 mg tablet ibandronate 150 mg tablet 150 mg PO DAILY 11/07/20 11/07/20 History levalbuterol HCl 1.25 mg/3 mL 1.25 mg INHALATION Q8HR 11/07/20 11/07/20 History solution for nebulization methylprednisolone 4 mg tablets in See Rx Instructions .ROUTE 11/07/20 Rx a dose pack (Medrol ([place])) .COMPLEX #21 ea montelukast 10 mg tablet 10 mg PO DAILY 11/07/20 11/07/20 History tiotropium bromide 2.5 2.5 mcg INHALATION BID 11/07/20 11/07/20 History mcg/actuation mist for inhalation (Spiriva Respimat) Allergies Allergy/AdvReac Type Severity Reaction Status Date / Time No Known Drug Allergies Allergy Verified 03/28/20 05:58 Review of Systems Review of Systems ROS: Yes All systems reviewed with the patient and are negative except as otherwise documented Exam Vital Signs (past 8 hours): - 12/03/20 03:00 Temperature 98.5 F Pulse Rate 111 H Respiratory Rate 20 Blood Pressure 116/76 Pulse Oximetry 98 Oxygen Delivery Method Nasal Cannula Oxygen Flow Rate 2 Narrative Exam Narrative: Gen: Alert, oriented, thin 75 y.o. female, on supplemental O2 HEENT: normocephalic, atraumatic, conjunctiva clear, sclera non-icteric, oral mucosa pink and moist Neck: supple, full ROM, no JVD, trachea is midline Resp: Lungs CTA, non-labored breathing CV: RRR, no murmur or rubs Abd: soft, non-tender, normoactive BTs Skin: no lesions or rashes, dry and intact Neuro: Alert and oriented X 4 w/no focal deficits. Speech clear and coherent. Extremities: bilateral pitting edema, moves all 4 extremities, is ambulatory, negative Travis?s sign Psyche: normal mood and affect. Objective Labs Result Diagrams: 12/03/20 03:10 12/03/20 03:10 Labs: Laboratory Results - last 24 hr 12/03/20 12/03/20 12/03/20 03:10 03:10 03:10 WBC 7.8 RBC 3.03 L Hgb 9.5 L Hct 29.4 L MCV 97.1 MCH 31.2 MCHC 32.2 RDW 13.1 Plt Count 228 Neut % (Auto) 79.4 H Lymph % (Auto) 11.5 L [place] % (Auto) 7.6 Eos % (Auto) 1.2 L Baso % (Auto) 0.3 Neut # (Auto) 6200 Lymph # (Auto) 900 L [place] # (Auto) 600 Eos # (Auto) 100 Baso # (Auto) 0 PT INR APTT Sodium 133 L Potassium 4.5 Chloride 95 L Carbon Dioxide 34 H BUN 11 Creatinine 0.58 Estimated GFR > 60.0 BUN/Creatinine Ratio 19.0 Glucose 137 H Calcium 9.1 Total Bilirubin 0.3 AST 18 ALT 9 Alkaline Phosphatase 75 Total Protein 6.5 Albumin 3.6 Globulin 2.9 Albumin/Globulin Ratio 1.2 SARS-CoV-2 (PCR) Blood Type A Negative Antibody Screen Negative 12/03/20 12/03/20 03:10 03:20 WBC RBC Hgb Hct MCV MCH MCHC RDW Plt Count Neut % (Auto) Lymph % (Auto) [place] % (Auto) Eos % (Auto) Baso % (Auto) Neut # (Auto) Lymph # (Auto) [place] # (Auto) Eos # (Auto) Baso # (Auto) PT 12.6 INR 1.1 APTT 41 H Sodium Potassium Chloride Carbon Dioxide BUN Creatinine Estimated GFR BUN/Creatinine Ratio Glucose Calcium Total Bilirubin AST ALT Alkaline Phosphatase Total Protein Albumin Globulin Albumin/Globulin Ratio SARS-CoV-2 (PCR) Negative Blood Type Antibody Screen Assessment & Plan Assessment & Plan narrative: Berna House is kept in an observation status to further evaluate the cause of her rectal bleeding. 1. Rectal bleeding, acute, present on admission * I have requested surgical consult from Dr. Molina * Hemoglobin and hematocrit q.6 hours and she has been typed and crossed * Eliquis will need to be stopped * C difficile PCR ordered when patient has a bowel movement 2. Atrial fibrillation, unknown if chronic * Cardiac monitoring * Obtain records from Dr. Cali her reel operator * Continue home medications of diltiazem 24 hour extended release 120 mg p.o. daily and nifedipine extended release 30 mg p.o. daily 3. COPD versus asthma, chronic * Patient will have her own albuterol MDI as well as DuoNeb nebulizers as needed shortness of breath and wheezing 4. Hyperlipidemia, chronic * Continue home dose of atorvastatin 20 mg p.o. in the evening 5. Osteoporosis, chronic * Patient currently takes a bisphosphonate, ibandronate once monthly which may cause upper GI ulceration VTE Prophylaxis: Wells risk score 0 [X] Bilateral SCDs Patient is placed into observation as her stay is not expected to exceed 2 midnights. FEN: : saline lock, diet: , labs: CBC, C/BMP, liver enzymes, Mag, PT/INR Consultants Dr. Molina, General Surgery, care and involvement in the patient?s care is appreciated. Dispo: Uknown at this time Code status: DNR as discussed with the patient who identifies her son Michoacano Farfan as her surrogate and POA. I confirmed that the patient's advanced care plan is present, code status is determined, or surrogate decision maker is listed on the patient's medical record. [X] I have utilized all available immediate resources to obtain, update, or review of the patient's current medications [X] The patient has current or prior documentation of the left ventricular ejection fraction (LEVF) less than 40% or moderate or severely depressed left ventricular systolic function. [X] No COVID-19 COVID-19 status: Negative Result date/Date tested (Pos, Neg/Pending): 12/03/20 Time Spent With Patient Critical Care time: I spent a total of [] minutes of critical care time on this patient's care today; this time is exclusive of procedural time. Scores Wells' Criteria for PE Clinical signs and symptoms of DVT: No PE is #1 Dx or equally likely: No Heart rate > 100: No Immobilization at least 3 days or surg in previous 4 weeks: No History of PE or DVT: No Hemoptysis: No Malignancy w/Treatment within 6 months or palliative: No Wells' PE Score total: 0 Quality VTE Deep Vein Thrombosis/Pulmonary Embolism Present on Admission: No MIPS - Admit I confirm the patient?s Advance Care Plan is present, Code status is documented, Surrogate decision maker is in patient?s record [If Yes, STOP here]: Yes MIPS - DC The patient has current or prior documentation of left ventricular ejection fraction (LVEF) less than 40%, or moderate or severely depressed left ventricular systolic function.: No
--- NOTE | 2020-12-03 05:28 | PC.NURSE ---
Patient states that circular knob in thoracic back has been there for years and was initially drained (date unknown) but procedure was painful. Patient leaves it alone at present.
[2020-12-03] MEDS: ACETAMINOPHEN 325 MG TABLET 650 MG PO (07:44)
[2020-12-03] MEDS: IPRATROPIUM 0.5 MG/2.5 ML NEB INH (08:22)
[2020-12-03] MEDS: BUDESONIDE 0.5 MG/2 ML NEB INH ×2 (08:22→19:51)
[2020-12-03 08:43] LABS: Add Manual Diff / Slide Review NO; Basophils Absolute Auto 0 /uL (0-100); Basophils Percent Auto 0.4 % (0-2); Eosinophils Absolute Auto 0 /uL (0-450); Eosinophils Percent Auto 0.5 % (2-4); Hematocrit 29.2 % (36-46); Hemoglobin 9.5 g/dL (12.0-16.0); Lymphocytes Absolute Auto 600 /uL (1100-4500); Lymphocytes Percent Auto 9.9 % (25-40); Mean Corpuscular HGB Conc 32.5 % (30-36); Mean Corpuscular Hemoglobin 31.5 PG (26-34); Mean Corpuscular Volume 96.9 fL (80-100); Monocytes Absolute Auto 400 /uL (0-900); Monocytes Percent Auto 5.8 % (3-14); Neutrophils Absolute Auto 5400 /uL (1500-7000); Neutrophils Percent Auto 83.4 % (50-75); Platelet Count 228 X10^3/uL (150-400); Red Blood Cell Count 3.01 X10^6/uL (4.0-5.2); Red Cell Distribution Width 13.3 % (11.6-14.8); White Blood Cell Count 6.5 X10^3/uL (4.5-11.0)
[2020-12-03] MEDS: FLUTICASONE 120 SPRAY/16 GM SPRAY.SUSP NASAL ×2 (08:48→20:29)
[2020-12-03] MEDS: ATORVASTATIN 20 MG TABLET PO (08:49)
[2020-12-03] MEDS: CITALOPRAM 10 MG TABLET 20 MG PO (08:49)
[2020-12-03] MEDS: dilTIAZem CD 120 MG CAP PO (08:49)
[2020-12-03] MEDS: HYDROCODONE/ACET 5/325 TABLET 1 TAB PO (08:49)
[2020-12-03] MEDS: MONTELUKAST 10 MG TABLET PO (08:49)
[2020-12-03 09:32] LABS: Clostridium Difficile Tox PCR Negative for C. diff (Negative)
[2020-12-03 09:39] LABS: BUN Creatinine Ratio 17.6 (6-22); Blood Urea Nitrogen 9 mg/dL (7-17); Calcium 9.2 mg/dL (8.4-10.2); Carbon Dioxide 31 mmol/L (22-32); Chloride 97 mmol/L (98-107); Estimated Glomerular Filt Rate > 60.0 mL/min (>60); Glucose 117 mg/dL (80-110); HEMOLYSIS < 15 (0-50); Sodium 133 mmol/L (137-145)
[2020-12-03 09:59] LABS: INR 1.1 (0.9-1.3); Prothrombin Time 12.7 SECONDS (10.1-12.7)
[2020-12-03] MEDS: ALBUTEROL/IPRATROPIUM 3 ML AMPUL INH ×3 (11:24→19:51)
[2020-12-03 11:56] LABS: Hematocrit 25.7 % (36-46); Hemoglobin 8.4 g/dL (12.0-16.0)
[2020-12-03] MEDS: HYDROCODONE/ACET 5/325 TABLET 2 TAB PO ×3 (12:30→22:23)
--- NOTE | 2020-12-03 15:35 | PC.NURSE ---
Spoke with son this morning about bringing in a home med list to verify medications. Son at bedside this afternoon but forgot to bring list. States he will bring it later.
--- NOTE | 2020-12-03 16:22 | CM.IDA ---
Initial DCP Assessment Note Pt is a 75 yo female, resident of [place], presents from home w/complaint of rectal bleeding. PCP: not listed Payer: [facility] Reviewed chart, met w/patient this morning, introduced role. Patient lives w/son Michoacano and his Neda. Neda works but Michoacano is on disability and so is home to assist patient as needed. DIL Neda often assists patient w/bathing needs. Patient uses FWW around her home, sleeps in her lift chair, which also assists her in getting up/down when needed throughout her day. Patient hopes to remain home for as long as possible w/assist from her family. Patient awaiting more information re: continued bleeding today and likelihood scope will be conducted (according to STEWART Sanderson) by surgical team. Patient does not anticipate DC needs from this CM team but appreciative for the visit. Will plan to follow closely as medical POC unfolds, available in case any DC needs or concerns arise. DAYSI Hobbs Discharge Planning/Care Management CM Discharge Assessment Start: 12/03/20 16:20 Freq: Status: Active Protocol: Document 12/03/20 16:20 LEAH (Rec: 12/03/20 16:22 LEAH [id number]) Discharge Planning Assessment Assigned Fleet Assistant DAYSI Voss DPOA/Assigned Designee Name blayne Escalante Contact Information [phone] Advance Directives? Yes Advance Directives on File No History Provided By Patient,Medical Record Prior Living Arrangements House Household Members family Type of transporation used prior to Relies on Others admit Independent with ADL's Yes: Mostly I w/use of walker Is patient alert and oriented? Yes Needs Assistance With Bathing,Meal Prep,Managing Medications,Home Chores / Shopping Comment Unknown at this time Discharge Plan Home with Home Health Transportation Arrangement Family Referrals Initiated Home Health Additional Comment Will follow closely as medical POC unfolds Whiteboard Updated in Patient Room with Yes name and ext. # of Fleet Assistant
[2020-12-03 18:06] LABS: Hematocrit 27.3 % (36-46); Hemoglobin 8.9 g/dL (12.0-16.0)
[2020-12-04 03:00] VITALS: BP 130/74; BP 135/72; BP 150/72; PULSE 79; PULSE 91; RESP 16; TEMP 36.4; O2SAT 100
[2020-12-04] MEDS: HYDROCODONE/ACET 5/325 TABLET 2 TAB PO ×2 (03:32→08:59)
[2020-12-04 04:55] LABS: Add Manual Diff / Slide Review NO; Basophils Absolute Auto 0 /uL (0-100); Basophils Percent Auto 1.2 % (0-2); Eosinophils Absolute Auto 100 /uL (0-450); Eosinophils Percent Auto 2.1 % (2-4); Hematocrit 26.7 % (36-46); Hemoglobin 8.7 g/dL (12.0-16.0); Lymphocytes Absolute Auto 800 /uL (1100-4500); Lymphocytes Percent Auto 22.5 % (25-40); Mean Corpuscular HGB Conc 32.5 % (30-36); Mean Corpuscular Hemoglobin 31.3 PG (26-34); Mean Corpuscular Volume 96.6 fL (80-100); Monocytes Absolute Auto 500 /uL (0-900); Neutrophils Absolute Auto 2200 /uL (1500-7000); Neutrophils Percent Auto 60.2 % (50-75); Platelet Count 213 X10^3/uL (150-400); Red Blood Cell Count 2.76 X10^6/uL (4.0-5.2); Red Cell Distribution Width 13.2 % (11.6-14.8); White Blood Cell Count 3.6 X10^3/uL (4.5-11.0)
[2020-12-04 05:06] LABS: INR 1.1 (0.9-1.3); Prothrombin Time 12.6 SECONDS (10.1-12.7)
[2020-12-04 05:13] LABS: BUN Creatinine Ratio 12.2 (6-22); Blood Urea Nitrogen 6 mg/dL (7-17); Calcium 8.8 mg/dL (8.4-10.2); Carbon Dioxide 32 mmol/L (22-32); Chloride 99 mmol/L (98-107); Estimated Glomerular Filt Rate > 60.0 mL/min (>60); Glucose 102 mg/dL (80-110); HEMOLYSIS < 15 (0-50); Potassium 4.3 mmol/L (3.4-5.1); Sodium 132 mmol/L (137-145)
[2020-12-04 08:00] VITALS: BP 155/87; PULSE 82; RESP 16; TEMP 36.8; O2SAT 98
[2020-12-04] MEDS: ATORVASTATIN 20 MG TABLET PO (09:00)
[2020-12-04] MEDS: MONTELUKAST 10 MG TABLET PO (09:00)
[2020-12-04] MEDS: dilTIAZem CD 120 MG CAP PO (09:00)
[2020-12-04] MEDS: CITALOPRAM 10 MG TABLET 20 MG PO (09:00)
[2020-12-04] MEDS: FLUTICASONE 120 SPRAY/16 GM SPRAY.SUSP NASAL (09:01)
--- NOTE | 2020-12-04 09:13 | PM.DS.1 ---
History of Present Illness History of Present Illness Date Patient Seen: 12/04/20 Time Patient Seen: 09:14 Chief complaint: Rectal bleeding, just started Eliquis Narrative: JUNITO Esteves: Berna House is a 75 y.o. female with a history of atrial fibrillaton, COPD and asthma presented this evening due to getting up in the middle the night to go the bathroom in finding that she had quite a bit of blood in her depends.? She states that her lower abdomen is achy.? She denies any nausea vomiting, fever, sweats or chills, she does endorse lower extremity swelling and has been using a diuretic that she was recently prescribed for this however I am not seeing this in her home med list. She does endorse a history of hemorrhoids and states has been at least 10 years since having a colonoscopy. She does endorse weight gain from the high 130s to the mid-140s. She is afebrile, blood pressure 116/76, heart rate 111, respiratory rate 20, oxygen saturation of 90% on 2 L she weighs 62.1 kg with a BMI of 23.5 WBC is 7.8 RBC 3.03 hemoglobin 9.4 and hematocrit is 29.4 with a platelet count of 228, sodium 133 potassium 4.5 chloride 95 bicarb 34 creatinine 0.58 with a GFR greater than 60 glucose is 137, liver enzymes within normal limits and COVID-19 PCR is negative.? She does have a recent history of being on a Medrol Dosepak which may explain her elevated glucose. Discharge Providers Provider Date of admission: 12/03/20 03:50 Discharge Date: 12/04/20 Consults: 12/03/20 04:01 Consult to General Surgery Routine Comment: Consulting Provider: Ananth Molina Reason for consultation: lower gi bleeding Has provider been notified: No Discharge provider: Marcos Burgess DO Summary Hospital Course Discharge Diagnosis: 1. Rectal bleeding, acute, present on admission 2. Atrial fibrillation, paroxysmal 3. COPD, chronic 4. Hyperlipidemia, chronic 5. Osteoporosis, chronic Hospital Course: This is a 75-year-old female with a past medical history of paroxysmal atrial fibrillation, COPD, hyperlipidemia, and osteoporosis who presented to the emergency room with rectal bleeding. She had recently been started on apixaban for paroxysmal atrial fibrillation. She was admitted for further observation and initially her hemoglobin did fall, however remains stable around 8.4 and slowly up trended on the day of discharge. She was able to eat and tolerate a diet without abdominal pain or further bloody bowel movements. She was recommended to follow-up with her primary care provider for referral for possible endoscopy and/or colonoscopy as an outpatient. In the meantime her apixaban was stopped until further evaluation can be completed as an outpatient. Exam Vital Signs (past 8 hours): - 12/04/20 03:00 12/04/20 08:00 Temperature 97.6 F 98.3 F Pulse Rate 79 82 Pulse Rate [Orthostatic Lying] 79 Pulse Rate [Orthostatic Sitting] 91 H Pulse Rate [Orthostatic Standing] 91 H Respiratory Rate 16 16 Blood Pressure 135/72 155/87 H Blood Pressure [Orthostatic Lying] 135/72 Blood Pressure [Orthostatic Sitting] 150/72 H Blood Pressure [Orthostatic Standing] 130/74 Pulse Oximetry 100 98 Oxygen Delivery Method Nasal Cannula Oxygen Flow Rate 2 Narrative Exam Narrative: Gen: Alert, oriented, thin 75 y.o. ? female, on supplemental O2 HEENT: normocephalic, atraumatic, conjunctiva clear, sclera non-icteric, oral mucosa pink and moist Neck: supple, full ROM, no JVD, trachea is midline Resp: Lungs CTA, non-labored breathing CV: RRR, no murmur or rubs Abd: soft, non-tender, normoactive BTs Skin: no lesions or rashes, dry and intact Neuro: Alert and oriented X 4 w/no focal deficits. Speech clear and coherent. Extremities: bilateral pitting edema, moves all 4 extremities, is ambulatory with walker Psyche: normal mood and affect. Objective Labs Result Diagrams: 12/04/20 04:25 12/04/20 04:25 Labs: Laboratory Results - last 24 hr 12/03/20 12/03/20 12/03/20 07:45 07:54 07:54 WBC RBC Hgb Hct MCV MCH MCHC RDW Plt Count Neut % (Auto) Lymph % (Auto) [place] % (Auto) Eos % (Auto) Baso % (Auto) Neut # (Auto) Lymph # (Auto) [place] # (Auto) Eos # (Auto) Baso # (Auto) PT 12.7 INR 1.1 Sodium 133 L Potassium 4.0 Chloride 97 L Carbon Dioxide 31 BUN 9 Creatinine 0.51 L Estimated GFR > 60.0 BUN/Creatinine Ratio 17.6 Glucose 117 H Calcium 9.2 Magnesium 2.0 C. difficile Tox (PCR) Negative for c. diff 12/03/20 12/03/20 12/04/20 11:30 17:43 04:25 WBC 3.6 L RBC 2.76 L Hgb 8.4 L 8.9 L 8.7 L Hct 25.7 L 27.3 L 26.7 L MCV 96.6 MCH 31.3 MCHC 32.5 RDW 13.2 Plt Count 213 Neut % (Auto) 60.2 D Lymph % (Auto) 22.5 L [place] % (Auto) 14.0 Eos % (Auto) 2.1 Baso % (Auto) 1.2 Neut # (Auto) 2200 Lymph # (Auto) 800 L [place] # (Auto) 500 Eos # (Auto) 100 Baso # (Auto) 0 PT INR Sodium Potassium Chloride Carbon Dioxide BUN Creatinine Estimated GFR BUN/Creatinine Ratio Glucose Calcium Magnesium C. difficile Tox (PCR) 12/04/20 12/04/20 04:25 04:25 WBC RBC Hgb Hct MCV MCH MCHC RDW Plt Count Neut % (Auto) Lymph % (Auto) [place] % (Auto) Eos % (Auto) Baso % (Auto) Neut # (Auto) Lymph # (Auto) [place] # (Auto) Eos # (Auto) Baso # (Auto) PT 12.6 INR 1.1 Sodium 132 L Potassium 4.3 Chloride 99 Carbon Dioxide 32 BUN 6 L Creatinine 0.49 L Estimated GFR > 60.0 BUN/Creatinine Ratio 12.2 Glucose 102 Calcium 8.8 Magnesium 2.0 C. difficile Tox (PCR) [facility] Medical History (Updated 12/03/20 @ 05:21 by JUNITO Casas) COPD (chronic obstructive pulmonary disease) Surgical History (Updated 12/03/20 @ 05:21 by JUNITO Casas) History of nephrolithotomy with removal of calculi Family History (Updated 12/03/20 @ 05:22 by JUNITO Casas) Mother Coronary artery disease Sister Heart problem Social History (Updated 12/03/20 @ 05:24 by JUNITO Casas) marital status: household members: family housing: house Smoking Status: Former smoker alcohol intake: former Discharge Plan Discharge Plan Patient Disposition: Home Provider Discharge Comment: You were admitted to the hospital with Gastrointestinal or colonic bleeding. You improved and blood counts improved after stopping your apixaban. This medication will be held for now. Please follow up with your PCP as soon as possible for further outpatient evaluation which may include an endoscopy or colonoscopy. Discharge orders & Medications Prescriptions: Continued cyclobenzaprine 10 mg tablet 10 mg TID RF: 0 atorvastatin 20 mg tablet 20 mg PO DAILY RF: 0 citalopram 20 mg tablet 20 mg PO DAILY RF: 0 hydrocodone-acetaminophen 7.5-325 mg tablet 1 tab PO QID RF: 0 gabapentin 300 mg capsule 300 mg PO TID RF: 0 diltiazem HCl 120 mg capsule,extended release 24hr 120 mg PO DAILY RF: 0 montelukast 10 mg tablet 10 mg PO DAILY RF: 0 levalbuterol HCl 1.25 mg/3 mL solution for nebulization 1.25 mg INHALATION Q8HR RF: 0 albuterol sulfate [ProAir HFA] 90 mcg/actuation HFA aerosol inhaler 90 mcg INHALATION PRN PRN (Reason: Bronchodilation) RF: 0 fluticasone propionate 50 mcg/actuation spray,suspension 50 mcg INTRANASAL BID RF: 0 ibandronate 150 mg tablet 150 mg PO DAILY RF: 0 Spiriva Respimat 2.5 mcg/actuation mist 2.5 mcg INHALATION BID RF: 0 Discontinued Eliquis 5 mg tablet 5 mg BID RF: 0 Diet/Activity/Treatments Diet: Diet as Tolerated Activity: As tolerated Discharge Data Attending Provider: Nicolette Liu VTE Deep Vein Thrombosis/Pulmonary Embolism Present on Admission: No
[2020-12-04] MEDS: BUDESONIDE 0.5 MG/2 ML NEB INH (09:53)
[2020-12-04] MEDS: ALBUTEROL/IPRATROPIUM 3 ML AMPUL INH (09:55)
[2020-12-04 10:05] VITALS: PULSE 82; RESP 18
--- NOTE | 2020-12-04 11:57 | PC.NURSE ---
Report received, care assumed 0730. Patient eating breakfast. VSS. A&Ox3. C/o back pain (chronic). Son at bedside. Discharge orders obtained. IV discontinued, patient dressed. Gait belt sent home with patient per her request. Using home oxygen tank. Discharge instructions given, wheeled by INFORMATION ARCHITECT to private vehicle, discharged home.
--- NOTE | 2020-12-04 15:35 | CM.DPNOTE ---
DC Note Home w/son today, patient eager to return home, no needs from this SERVICE TECHNICIAN identified. Home w/close outpatient f/u recommended. LEAH
== END 2020-12-04 10:10 | disposition home or self-care (01) ==
LOC: ED 03:31 → AC 03:51
PROVIDERS: Admitting Provider Nurse Practitioner Family; Emergency Provider Emergency Medicine; Referring Provider Emergency Medicine; Visit Provider Nurse Practitioner Family
DX: K62.5 Hemorrhage of anus and rectum (principal); W18.39XA Other fall on same level, initial encounter; Y92.002 Bathroom of unspecified non-institutional (private) residence as the place of occurrence of the external cause; J44.9 Chronic obstructive pulmonary disease, unspecified; I48.91 Unspecified atrial fibrillation; Z99.81 Dependence on supplemental oxygen; Z79.01 Long term (current) use of anticoagulants; M81.0 Age-related osteoporosis without current pathological fracture; Z87.891 Personal history of nicotine dependence
CPT/HCPCS: 36415; 80048; 80053; 83735; 85014; 85018; 85025; 85610; 85730; 86850; 86900; 86901; 87493; 87635; 93005; 94640; 94760; 96374; 99284; 99285; C9803; G0378; C9113

== ENCOUNTER → 2021-01-07 11:34 | Outpatient (CLI) | payer MEDICARE, OTHER, SELFPAY ==
[2020-12-14 11:16] VITALS: BMI 23.5
[2021-01-07 12:20] LABS: Add Manual Diff / Slide Review NO; Basophils Absolute Auto 0 /uL (0-100); Eosinophils Absolute Auto 300 /uL (0-450); Eosinophils Percent Auto 6.7 % (2-4); Hematocrit 31.2 % (36-46); Hemoglobin 9.8 g/dL (12.0-16.0); Lymphocytes Absolute Auto 800 /uL (1100-4500); Mean Corpuscular HGB Conc 31.6 % (30-36); Mean Corpuscular Hemoglobin 30.1 PG (26-34); Mean Corpuscular Volume 95.4 fL (80-100); Monocytes Absolute Auto 500 /uL (0-900); Monocytes Percent Auto 10.3 % (3-14); Neutrophils Absolute Auto 3200 /uL (1500-7000); Platelet Count 328 X10^3/uL (150-400); Red Blood Cell Count 3.27 X10^6/uL (4.0-5.2); Red Cell Distribution Width 13.5 % (11.6-14.8); White Blood Cell Count 4.9 X10^3/uL (4.5-11.0)
[2021-01-07 12:45] LABS: Alanine Aminotransferase 6 IU/L (<35); Albumin 3.7 g/dL (3.5-5.0); Albumin Globulin Ratio 1.4 (1.0-2.8); Alkaline Phosphatase 79 U/L (38-126); Aspartate Aminotransferase 17 IU/L (14-36); BUN Creatinine Ratio 23.5 (6-22); Bilirubin Total 0.2 mg/dL (0.2-1.3); Blood Urea Nitrogen 12 mg/dL (7-17); Calcium 8.9 mg/dL (8.4-10.2); Carbon Dioxide 31 mmol/L (22-32); Chloride 99 mmol/L (98-107); Estimated Glomerular Filt Rate > 60.0 mL/min (>60); Globulin 2.7 g/dL (1.7-4.1); Glucose 113 mg/dL (80-110); HEMOLYSIS < 15 (0-50); Potassium 4.4 mmol/L (3.4-5.1); Sodium 135 mmol/L (137-145); Total Protein 6.4 g/dL (6.3-8.2)
== END ==
PROVIDERS: PCP Internal Medicine; Referring Provider Surgery; Visit Provider Surgery
DX: K62.5 Hemorrhage of anus and rectum (principal)
CPT/HCPCS: 36415; 80053; 85025; 85610; 99214

== ENCOUNTER → 2021-01-15 09:19 | Outpatient (CLI) | payer MEDICARE, OTHER, SELFPAY ==
[2021-01-07 11:37] VITALS: BMI 23.5
[2021-01-15 11:16] LABS: COVID19 -Nasal RAPID Negative (Negative)
== END ==
PROVIDERS: PCP Internal Medicine; Referring Provider Surgery; Visit Provider Surgery
DX: Z01.812 Encounter for preprocedural laboratory examination (principal); Z20.822 Contact with and (suspected) exposure to COVID-19
CPT/HCPCS: 87635; C9803

== ENCOUNTER 2021-01-18 10:39 | Day surgery (SDC) | payer MEDICARE, OTHER, SELFPAY ==
[2021-01-07 11:37] VITALS: BMI 23.5
--- NOTE | 2021-01-18 | PATH_ITS ---
[facility] Accession Number: [id number] . 01 Material submitted: . PART A: colon - ASCENDING COLON POLYP PART B: colon - SIGMOID COLON POLYP PART C: rectum - RECTAL POLYP . 02 Diagnosis: A. Ascending Colon Polyp, Biopsy: Sessile serrated adenoma. . B. Sigmoid Colon Polyp, Biopsy: Hyperplastic polyp. . C. Rectal Polyp, Biopsy: Hyperplastic polyp. [facility] 01/21/2021 1643 Local . 02 Electronically signed: . Shayan Burns MD, PhD, Pathologist NPI- [id number] . 01 Gross description: . Part A: ASCENDING COLON POLYP: Received in formalin are multiple fragment(s) of starks, soft tissue measuring 1.7 x 0.7 x 0.4 cm in aggregate submitted entirely in 1 cassette(s) Part B: SIGMOID COLON POLYP: Received in formalin is 1 fragment(s) of starks, soft tissue measuring 0.6 x 0.4 x 0.3 cm submitted entirely in 1 cassette(s) Part C: RECTAL POLYP: Received in formalin is 1 fragment(s) of starks, soft tissue measuring 0.5 x 0.4 x 0.4 cm submitted entirely in 1 cassette(s) /[facility] 01/19/2021 0540 Local . 02 Pathologist provided ICD-10: D12.2, K63.5, K62.1 . 02 CPT . 052303, 556693, 962303 Performed at: [facility] [address] [id number] MD Robert Christine MD Phone: [phone] Performed at: [facility] [address] [place], [place] [id number] MD Neda Gifford MD Phone: [phone]
[2021-01-18 11:15] VITALS: BP 142/83; PULSE 101; RESP 16; TEMP 36.3; O2SAT 100; BMI 22.6
--- NOTE | 2021-01-18 12:13 | PM.PREOP ---
Pre-operative Note COVID-19 COVID-19 status: Negative Interval Note History & Physical reviewed/Exam performed by Physician: Yes Changes to H&P: No ASA Class (for procedural sedation): II
--- NOTE | 2021-01-18 13:09 | PM.OP.EC ---
Operative Date/Time/Diagnoses Date of procedure: 01/18/21 Pre-op diagnosis: Rectal bleeding Post-op diagnosis: same Procedure & Clinicians Surgeon: Gonzalez Downing Procedure Notes Procedure in detail: A timeout was performed. Bite blocked was placed. The endoscopy was inserted into the duodenum. There were no ulcerations or other lesions noted in the stomach or duodenum. The esophagus was normal. No biopsies were taken. Next we performed the colonoscopy. A digital rectal exam was performed and was normal aside from extensive mixed hemorrhoids. The colonoscope was inserted and advanced to the cecum. The prep was poor. The appendiceal orifice was photographed. The scope was slowly withdrawn over greater than 6 minutes. There was a flat polyp in the ascending colon, roughly 1 cm. About 1 mL of saline was injected to lift the polyp. The polyp was then taken with hot snare and suctioned into the trap. Hemostasis was noted. There were 2 vascular malformations that were not actively bleeding in the left colon. There was extensive talbot diverticulosis greatest in the left and sigmoid colon. The prep was poor in the left and sigmoid colon. A small sigmoid polyp and a small rectal polyp were taken with cold snare. The scope was retroflexed in the rectum and the internal hemorrhoids were noted. Findings: diverticulosis, internal hemorrhoids, polyp and vascular ectasias
[2021-01-18 13:10] VITALS: BP 140/82; PULSE 92; RESP 16; TEMP 37.7; O2SAT 100
[2021-01-18 13:15] VITALS: BP 158/90; PULSE 95; RESP 18; O2SAT 100
[2021-01-18 13:20] VITALS: PULSE 105; RESP 19; O2SAT 100
[2021-01-18 13:25] VITALS: BP 177/84; PULSE 104; RESP 18; O2SAT 100
[2021-01-18 13:35] VITALS: BP 161/94; PULSE 105; RESP 16; TEMP 36.8; O2SAT 99
--- NOTE | 2021-01-18 14:33 | SUR.PHASEII ---
States having pain. When asked what kind of pain, stated gas pain.Warm blanket held to abdomen and changed positions. Passed alot of gas. Feeling better after. Discharged on O2 3 liters which she's on at home
== END 2021-01-18 14:25 | disposition home or self-care (01) ==
PROVIDERS: PCP Internal Medicine; Referring Provider Surgery; Visit Provider Surgery
PROC: 0DJ08ZZ Inspection of Upper Intestinal Tract, Via Natural or Artificial Opening Endoscopic (ICD-10-PCS; CPT 43235; principal; 2021-01-18 12:15)
PROC: 0DJD8ZZ Inspection of Lower Intestinal Tract, Via Natural or Artificial Opening Endoscopic (ICD-10-PCS; CPT 45378; 2021-01-18 12:15)
DX: K62.5 Hemorrhage of anus and rectum (principal); F44.9 Dissociative and conversion disorder, unspecified; I10 Essential (primary) hypertension; I48.0 Paroxysmal atrial fibrillation; Z99.81 Dependence on supplemental oxygen; Z87.891 Personal history of nicotine dependence; K57.30 Diverticulosis of large intestine without perforation or abscess without bleeding; K64.8 Other hemorrhoids; D12.2 Benign neoplasm of ascending colon; K62.1 Rectal polyp
CPT/HCPCS: 45385; 45381; 43235; J2704

== ENCOUNTER 2021-06-24 04:13 | Inpatient (IN) | payer MEDICARE, OTHER, SELFPAY ==
[2021-01-07 11:37] VITALS: BMI 23.5
[2021-06-24] VITALS (23 sets, daily range): BP systolic 126–178; BP diastolic 60–97; PULSE 78–152; RESP 14–30; TEMP 36.1–37.7; O2SAT 95–100; BMI 22.3
--- NOTE | 2021-06-24 04:23 | ED.WEAKNESS ---
HPI - Weakness General Chief complaint: GI Bleed Stated complaint: Weakness x2days Time Seen by Provider: 06/24/21 04:19 History of Present Illness HPI Narrative: 75-year-old female former smoker with history of COPD, hyperlipidemia, hypertension on 3 L home oxygen presents by EMS for evaluation of increasing shortness of breath, oxygen requirements, weakness, passage of dark stools over the past few days. She has had no fever chills. She denies any vomiting but is nauseated. She denies any change in her medications but states she did not take her Cardizem yesterday. She denies any ongoing use of blood thinners for AFib as it was causing her to bleed. She has had poor appetite and has not had much to eat or drink over the past day or 2, she does have some upper abdominal discomfort. She has no obvious provocation, palliation or radiation of her discomfort. Family is with her and states she has not been able to stand upper get around on her own for the past day or 2 which is different than normal and they have increased her home oxygen to 5 L. Related Data Home Medications Medication Instructions Recorded Confirmed albuterol sulfate 90 mcg/actuation 90 mcg INHALATION PRN PRN 11/07/20 06/24/21 aerosol inhaler (ProAir HFA) atorvastatin 20 mg tablet 20 mg PO DAILY 11/07/20 06/24/21 citalopram 20 mg tablet 20 mg PO DAILY 11/07/20 06/24/21 diltiazem HCl 120 mg 120 mg PO DAILY 11/07/20 06/24/21 capsule,extended release 24 hr fluticasone propionate 50 50 mcg INTRANASAL BID 11/07/20 06/24/21 mcg/actuation nasal spray,suspension gabapentin 300 mg capsule 300 mg PO TID 11/07/20 06/24/21 hydrocodone 7.5 mg-acetaminophen 1 tab PO QID 11/07/20 06/24/21 325 mg tablet ibandronate 150 mg tablet 150 mg PO Q1-2M 11/07/20 06/24/21 montelukast 10 mg tablet 10 mg PO DAILY 11/07/20 06/24/21 cyclobenzaprine 10 mg tablet 10 mg TID 12/03/20 06/24/21 levalbuterol HCl 1.25 mg/3 mL 1.25 mg INHALATION DAILY 02/02/21 06/24/21 solution for nebulization carbidopa 25 mg-levodopa 100 mg 1 tab PO BEDTIME 02/23/21 06/24/21 tablet fluticasone 250 mcg-salmeterol 50 1 inh INHALATION BID 02/23/21 06/24/21 mcg/dose blistr powdr for inhalation (Advair Diskus) hydrochlorothiazide 12.5 mg capsule 12.5 mg PO DAILY 02/23/21 06/24/21 ferrous sulfate 325 mg (65 mg 325 mg PO DAILY 06/24/21 06/24/21 iron) tablet Allergies Allergy/AdvReac Type Severity Reaction Status Date / Time No Known Drug Allergies Allergy Verified 01/18/21 11:11 Review of Systems Review of Systems Narrative: GENERAL: See HPI HEENT: Denies sinus pain, ear pain, sore throat, difficulty swallowing, dizziness. RESPIRATORY: See HPI CARDIOVASCULAR: Denies chest pain, palpitations, orthopnea, edema, GASTROINTESTINAL: See HPI : Denies dysuria, frequency, incontinence, hematuria, urinary retention. MUSCULOSKELETAL: denies weakness, joint pain, or bony pain SKIN: Denies rash, skin lesions, or other NEUROLOGIC: Denies weakness, headache, numbness, change in speech, confusion, seizures, incoordination. PSYCHIATRIC: No concerning psychosocial issues. 12 point review of systems is negative except for those stated above Patient History Medical History COPD (chronic obstructive pulmonary disease) Hypertension Joint pain Kidney stones Trigger finger Surgical History History of hip replacement History of nephrolithotomy with removal of calculi Family History Mother Coronary artery disease Sister Heart problem Social History marital status: household members: family housing: house Smoking Status: Former smoker alcohol intake: former Smoking Status: Former smoker alcohol intake frequency: 0-2 drinks per day Substance Use Type: does not use Exam Narrative Exam Narrative: GENERAL: [75 year old patient older than appears stated age. Ill-appearing, weak, required significant assistance to get from ambulance cart to bed HEAD: Atraumatic. Normocephalic. EYES: Pupils equal round and reactive. Extraocular motions intact. No scleral icterus. No injection or drainage. ENT: Nose without bleeding, purulent drainage. Throat without erythema, tonsillar hypertrophy or exudate. Airway patent. NECK: Trachea midline. Non tender CARDIOVASCULAR: Regular rate and rhythm without murmurs, gallops, or rubs. RESPIRATORY: Decreased breath sounds throughout prolonged expiratory phase and crackles in bilateral apices GASTROINTESTINAL: Abdomen soft, generalized tenderness, nondistended. Bowel sounds present RECTAL: Heme Neg. EXTREMITIES: No edema or joint tenderness. BACK: Nontender without deformity or crepitance. No flank tenderness. NEURO: AOx3. SKIN: No rash or erythema of visible areas Initial Vital Signs Initial Vital Signs: Vital Signs Temperature 97.7 F 06/24/21 04:15 Pulse Rate 106 H 06/24/21 04:15 Respiratory Rate 19 06/24/21 04:15 Blood Pressure 173/78 H 06/24/21 04:15 Pulse Oximetry 100 06/24/21 04:15 Course Orders Ordered: Acetaminophen (Acetaminophen 325 Mg Tablet) 650 mg PO Q6HR PRN PRN Reason: Fever/Mild Pain (1-3) Hydrocodone Bitart/Acetaminophen (Hydrocodone/Acet 5/325 Tablet) 1 tab PO Q4HR PRN PRN Reason: Pain, Moderate (4-6) Last Admin: 06/25/21 20:19 Dose: 1 tab Documented by: Admin: 06/25/21 16:37 Dose: 1 tab Documented by: Admin: 06/25/21 10:06 Dose: 1 tab Documented by: JOEL Hydrocodone Bitart/Acetaminophen (Hydrocodone/Acet 5/325 Tablet) 2 tab PO Q4HR PRN PRN Reason: Pain, Severe (7-10) Last Admin: 06/25/21 05:38 Dose: 2 tab Documented by: [email or web address] Admin: 06/24/21 21:33 Dose: 2 tab Documented by: [email or web address] Admin: 06/24/21 15:40 Dose: 2 tab Documented by: Admin: 06/24/21 11:20 Dose: 2 tab Documented by: [email or web address] Albuterol (Albuterol 2.5 Mg/3 Ml Neb (Adult)) 2.5 mg INH [id number] DAVID Last Admin: 06/25/21 20:31 Dose: 2.5 mg Documented by: Admin: 06/25/21 16:26 Dose: 2.5 mg Documented by: Admin: 06/25/21 12:35 Dose: 2.5 mg Documented by: Admin: 06/25/21 08:55 Dose: 2.5 mg Documented by: Admin: 06/24/21 23:45 Dose: Not Given Documented by: Admin: 06/24/21 20:40 Dose: 2.5 mg Documented by: Admin: 06/24/21 15:26 Dose: 2.5 mg Documented by: Admin: 06/24/21 12:23 Dose: 2.5 mg Documented by: ROBERT Albuterol (Albuterol 2.5 Mg/3 Ml Neb (Adult)) 2.5 mg INH [id number] PRN PRN Reason: Shortness Of Breath Last Admin: 06/24/21 09:12 Dose: 2.5 mg Documented by: ROBERT Atorvastatin Calcium (Atorvastatin 20 Mg Tablet) 20 mg PO DAILY [facility] Last Admin: 06/25/21 09:57 Dose: 20 mg Documented by: JOEL Azithromycin (Azithromycin 250 Mg Tablet) 250 mg PO DAILY DAVID Stop: 06/29/21 08:59 Last Admin: 06/25/21 09:58 Dose: 250 mg Documented by: JOEL Budesonide (Budesonide 0.5 Mg/2 Ml Neb) 0.5 mg INH RTBID DAVID Last Admin: 06/25/21 20:31 Dose: 0.5 mg Documented by: Admin: 06/25/21 08:55 Dose: 0.5 mg Documented by: Admin: 06/24/21 20:40 Dose: 0.5 mg Documented by: Admin: 06/24/21 09:11 Dose: 0.5 mg Documented by: ROBERT Carbidopa/Levodopa (Carbidopa-Levodopa 25/100 Tablet) 1 each PO BEDTIME [facility] Last Admin: 06/25/21 20:06 Dose: 1 each Documented by: Admin: 06/24/21 21:34 Dose: 1 each Documented by: AJ Citalopram Hydrobromide (Citalopram 10 Mg Tablet) 20 mg PO DAILY [facility] Last Admin: 06/25/21 09:57 Dose: 20 mg Documented by: JOEL Cyclobenzaprine HCl (Cyclobenzaprine 10 Mg Tablet) 10 mg PO TID [facility] Last Admin: 06/25/21 20:06 Dose: 10 mg Documented by: Admin: 06/25/21 16:21 Dose: 10 mg Documented by: Admin: 06/25/21 09:57 Dose: 10 mg Documented by: Admin: 06/24/21 21:32 Dose: 10 mg Documented by: Admin: 06/24/21 15:40 Dose: 10 mg Documented by: WILLIAM Dexamethasone (Dexamethasone 10 Mg/Ml Vial) 6 mg IV DAILY [facility] Last Admin: 06/25/21 09:58 Dose: 6 mg Documented by: Admin: 06/24/21 10:08 Dose: 6 mg Documented by: WILLIAM Diltiazem HCl (Diltiazem Cd 120 Mg Cap) 120 mg PO DAILY [facility] Last Admin: 06/25/21 10:06 Dose: 120 mg Documented by: JOEL Enoxaparin Sodium (Enoxaparin 40 Mg/0.4 Ml Syringe) 40 mg SUBCUT DAILY [facility] Last Admin: 06/25/21 09:58 Dose: 40 mg Documented by: Admin: 06/24/21 10:08 Dose: 40 mg Documented by: WILLIAM Ferrous Sulfate (Ferrous Sulfate 325 Mg Tablet) 325 mg PO DAILY [facility] Last Admin: 06/25/21 09:57 Dose: 325 mg Documented by: JOEL Gabapentin (Gabapentin 300 Mg Capsule) 300 mg PO TID [facility] Last Admin: 06/25/21 20:06 Dose: 300 mg Documented by: Admin: 06/25/21 16:21 Dose: 300 mg Documented by: Admin: 06/25/21 09:58 Dose: 300 mg Documented by: Admin: 06/24/21 21:34 Dose: 300 mg Documented by: Admin: 06/24/21 15:40 Dose: 300 mg Documented by: WILLIAM Hydrochlorothiazide (Hydrochlorothiazide 25 Mg Tablet) 12.5 mg PO DAILY [facility] Last Admin: 06/25/21 09:57 Dose: 12.5 mg Documented by: JOEL Ceftriaxone Sodium 1,000 mg/ (Sodium Chloride) 100 mls @ 200 mls/hr IV Q24H [facility] Stop: 06/29/21 15:59 Last Admin: 06/25/21 16:20 Dose: 200 mls/hr Documented by: JOEL Influenza Virus Vaccine (Influenza Hd Vaccine 0.7 Ml Syringe) 0.7 ml IM .ONCE ONE Stop: 06/26/21 09:01 Montelukast Sodium (Montelukast 10 Mg Tablet) 10 mg PO DAILY [facility] Last Admin: 06/25/21 09:57 Dose: 10 mg Documented by: Admin: 06/24/21 10:09 Dose: 10 mg Documented by: WILLIAM Naloxone HCl (Naloxone 0.4 Mg/Ml Vial) 0.2 mg IV Q2MIN PRN PRN Reason: Opiate Reversal Ondansetron HCl (Ondansetron 4 Mg/2 Ml Inj) 4 mg IV Q8HR PRN PRN Reason: Nausea And Vomiting Sodium Chloride (Sodium Chloride 0.9% Flush) 10 ml IV PRN PRN PRN Reason: Flush Sodium Chloride (Sodium Chloride 0.9% Flush) 10 ml IV BID [facility] Last Admin: 06/25/21 20:07 Dose: 10 ml Documented by: Admin: 06/25/21 10:00 Dose: 10 ml Documented by: Admin: 06/24/21 21:34 Dose: 10 ml Documented by: AJ Discontinued Medications Albuterol/Ipratropium (Albuterol/Ipratropium 3 Ml Ampul) 3 ml INH RTQ4HR PRN PRN Reason: Shortness Of Breath Azithromycin (Azithromycin 250 Mg Tablet) 500 mg PO NOW ONE Stop: 06/24/21 12:51 Diltiazem HCl (Diltiazem 5 Mg/Ml Sdv) 10 mg IV NOW ONE Stop: 06/24/21 06:09 Last Admin: 06/24/21 06:12 Dose: 10 mg Documented by: ANA LUISA Diltiazem HCl (Diltiazem Cd 120 Mg Cap) 120 mg PO NOW ONE Stop: 06/24/21 06:21 Last Admin: 06/24/21 06:54 Dose: 120 mg Documented by: ANA LUISA Sodium Chloride (Normal Saline 0.9%) 1,000 mls @ 1,000 mls/hr IV BOLUS ONE Stop: 06/24/21 06:01 Last Infusion: 06/24/21 06:55 Dose: 0 mls/hr Documented by: ANA LUISA Admin: 06/24/21 05:10 Dose: 1,000 mls/hr Documented by: ANA LUISA Ceftriaxone Sodium 2,000 mg/ (Sodium Chloride) 100 mls @ 200 mls/hr IV NOW ONE Stop: 06/24/21 05:25 Last Infusion: 06/24/21 06:54 Dose: 0 mls/hr Documented by: ANA LUISA Admin: 06/24/21 05:50 Dose: 200 mls/hr Documented by: ANA LUISA Ceftriaxone Sodium 1,000 mg/ (Sodium Chloride) 100 mls @ 200 mls/hr IV Q24H DAVID Azithromycin 500 mg/ Dextrose 250 mls @ 250 mls/hr IV Q24H DAVID Last Infusion: 06/24/21 09:30 Dose: 0 mls/hr Documented by: Infusion: 06/24/21 08:25 Dose: 250 mls/hr Documented by: Infusion: 06/24/21 08:25 Dose: 0 mls/hr Documented by: Admin: 06/24/21 07:50 Dose: 250 mls/hr Documented by: SAMANTHA Magnesium Chloride (Magnesium Chloride 64 Mg Tablet) 128 mg PO 2100 ONE Stop: 06/24/21 21:01 Last Admin: 06/24/21 21:33 Dose: 128 mg Documented by: AJ Pantoprazole Sodium (Pantoprazole 40 Mg Vial) 40 mg IV NOW ONE Stop: 06/24/21 04:13 Last Admin: 06/24/21 04:29 Dose: 40 mg Documented by: DESHAWN Vital Signs Vital signs: Vital Signs - 8 hr 06/24/21 04:15 06/24/21 04:18 06/24/21 04:30 Temperature 97.7 F Pulse Rate 106 H 113 H 111 H Respiratory Rate 19 24 Blood Pressure 173/78 H Pulse Oximetry 100 100 06/24/21 05:00 06/24/21 05:08 06/24/21 05:30 Temperature Pulse Rate 114 H 105 H 105 H Respiratory Rate 30 H 22 23 Blood Pressure 153/83 H 178/82 H Pulse Oximetry 100 100 100 06/24/21 06:12 Temperature Pulse Rate 152 H Respiratory Rate Blood Pressure Pulse Oximetry MDM - Weakness Lab Data Result diagrams: 06/25/21 05:47 06/25/21 05:47 Labs: Lab Results 06/24/21 06/24/21 06/24/21 Range/Units 04:40 04:40 04:40 WBC 6.1 (4.5-11.0) X10^3/uL RBC 3.96 L (4.0-5.2) X10^6/uL Hgb 11.7 L (12.0-16.0) g/dL Hct 35.4 L (36-46) % MCV 89.6 (80-100) fL MCH 29.6 (26-34) PG MCHC 33.1 (30-36) % RDW 13.8 (11.6-14.8) % Plt Count 222 (150-400) X10^3/uL Neut % (Auto) 77.5 H (50-75) % Lymph % (Auto) 10.9 L (25-40) % [place] % (Auto) 11.4 (3-14) % Eos % (Auto) 0.0 L (2-4) % Baso % (Auto) 0.2 (0-2) % Neut # (Auto) 4700 (9755-1991) /uL Lymph # (Auto) 700 L (9254-3261) /uL [place] # (Auto) 700 (0-900) /uL Eos # (Auto) 0 (0-450) /uL Baso # (Auto) 0 (0-100) /uL ESR (0-20) MM/HR PT 11.7 (10.1-12.7) SECONDS INR 1.1 (0.9-1.3) Sodium 129 L (137-145) mmol/L Potassium 3.5 (3.4-5.1) mmol/L Chloride 90 L (98-107) mmol/L Carbon Dioxide 32 (22-32) mmol/L BUN 9 (7-17) mg/dL Creatinine 0.52 (0.52-1.04) mg/dL Estimated GFR > 60.0 (>60) mL/min BUN/Creatinine Ratio 17.3 (6-22) Glucose 113 H (80-110) mg/dL Calcium 9.0 (8.4-10.2) mg/dL Magnesium (1.6-2.3) mg/dL Total Bilirubin 0.4 (0.2-1.3) mg/dL AST 31 (14-36) IU/L ALT 17 (<35) IU/L Alkaline Phosphatase 61 (38-126) U/L Lactate Dehydrogenase (313-618) U/L C-Reactive Protein (<1.0) mg/dL Total Protein 7.3 (6.3-8.2) g/dL Albumin 4.1 (3.5-5.0) g/dL Globulin 3.2 (1.7-4.1) g/dL Albumin/Globulin Ratio 1.3 (1.0-2.8) Procalcitonin (<0.5) ng/mL Blood Type Antibody Screen 06/24/21 06/24/21 06/24/21 Range/Units 04:40 04:40 04:40 WBC (4.5-11.0) X10^3/uL RBC (4.0-5.2) X10^6/uL Hgb (12.0-16.0) g/dL Hct (36-46) % MCV (80-100) fL MCH (26-34) PG MCHC (30-36) % RDW (11.6-14.8) % Plt Count (150-400) X10^3/uL Neut % (Auto) (50-75) % Lymph % (Auto) (25-40) % [place] % (Auto) (3-14) % Eos % (Auto) (2-4) % Baso % (Auto) (0-2) % Neut # (Auto) (1486-1238) /uL Lymph # (Auto) (9398-7980) /uL [place] # (Auto) (0-900) /uL Eos # (Auto) (0-450) /uL Baso # (Auto) (0-100) /uL ESR 23 H (0-20) MM/HR PT (10.1-12.7) SECONDS INR (0.9-1.3) Sodium (137-145) mmol/L Potassium (3.4-5.1) mmol/L Chloride (98-107) mmol/L Carbon Dioxide (22-32) mmol/L BUN (7-17) mg/dL Creatinine (0.52-1.04) mg/dL Estimated GFR (>60) mL/min BUN/Creatinine Ratio (6-22) Glucose (80-110) mg/dL Calcium (8.4-10.2) mg/dL Magnesium (1.6-2.3) mg/dL Total Bilirubin (0.2-1.3) mg/dL AST (14-36) IU/L ALT (<35) IU/L Alkaline Phosphatase (38-126) U/L Lactate Dehydrogenase (313-618) U/L C-Reactive Protein (<1.0) mg/dL Total Protein (6.3-8.2) g/dL Albumin (3.5-5.0) g/dL Globulin (1.7-4.1) g/dL Albumin/Globulin Ratio (1.0-2.8) Procalcitonin 0.08 (<0.5) ng/mL Blood Type A Negative Antibody Screen Negative 06/24/21 Range/Units 04:40 WBC (4.5-11.0) X10^3/uL RBC (4.0-5.2) X10^6/uL Hgb (12.0-16.0) g/dL Hct (36-46) % MCV (80-100) fL MCH (26-34) PG MCHC (30-36) % RDW (11.6-14.8) % Plt Count (150-400) X10^3/uL Neut % (Auto) (50-75) % Lymph % (Auto) (25-40) % [place] % (Auto) (3-14) % Eos % (Auto) (2-4) % Baso % (Auto) (0-2) % Neut # (Auto) (8222-3929) /uL Lymph # (Auto) (1526-4871) /uL [place] # (Auto) (0-900) /uL Eos # (Auto) (0-450) /uL Baso # (Auto) (0-100) /uL ESR (0-20) MM/HR PT (10.1-12.7) SECONDS INR (0.9-1.3) Sodium (137-145) mmol/L Potassium (3.4-5.1) mmol/L Chloride (98-107) mmol/L Carbon Dioxide (22-32) mmol/L BUN (7-17) mg/dL Creatinine (0.52-1.04) mg/dL Estimated GFR (>60) mL/min BUN/Creatinine Ratio (6-22) Glucose (80-110) mg/dL Calcium (8.4-10.2) mg/dL Magnesium 1.7 (1.6-2.3) mg/dL Total Bilirubin (0.2-1.3) mg/dL AST (14-36) IU/L ALT (<35) IU/L Alkaline Phosphatase (38-126) U/L Lactate Dehydrogenase 480 (313-618) U/L C-Reactive Protein 1.2 H (<1.0) mg/dL Total Protein (6.3-8.2) g/dL Albumin (3.5-5.0) g/dL Globulin (1.7-4.1) g/dL Albumin/Globulin Ratio (1.0-2.8) Procalcitonin (<0.5) ng/mL Blood Type Antibody Screen Discharge Plan Departure Patient Disposition: Admitted As Inpatient Clinical Impression: COVID, Gastric bleed Admit Date/Time: 06/24/21 06:43 Admit Provider: Nicolette Liu
[2021-06-24] MEDS: PANTOPRAZOLE 40 MG VIAL IV (04:29)
[2021-06-24 04:55] LABS: INR 1.1 (0.9-1.3); Prothrombin Time 11.7 SECONDS (10.1-12.7)
[2021-06-24 05:00] LABS: Add Manual Diff / Slide Review NO; Basophils Absolute Auto 0 /uL (0-100); Basophils Percent Auto 0.2 % (0-2); Eosinophils Absolute Auto 0 /uL (0-450); Hematocrit 35.4 % (36-46); Hemoglobin 11.7 g/dL (12.0-16.0); Lymphocytes Absolute Auto 700 /uL (1100-4500); Lymphocytes Percent Auto 10.9 % (25-40); Mean Corpuscular HGB Conc 33.1 % (30-36); Mean Corpuscular Hemoglobin 29.6 PG (26-34); Mean Corpuscular Volume 89.6 fL (80-100); Monocytes Absolute Auto 700 /uL (0-900); Monocytes Percent Auto 11.4 % (3-14); Neutrophils Absolute Auto 4700 /uL (1500-7000); Neutrophils Percent Auto 77.5 % (50-75); Platelet Count 222 X10^3/uL (150-400); Red Blood Cell Count 3.96 X10^6/uL (4.0-5.2); Red Cell Distribution Width 13.8 % (11.6-14.8); White Blood Cell Count 6.1 X10^3/uL (4.5-11.0)
[2021-06-24 05:01] LABS: Alanine Aminotransferase 17 IU/L (<35); Albumin 4.1 g/dL (3.5-5.0); Albumin Globulin Ratio 1.3 (1.0-2.8); Alkaline Phosphatase 61 U/L (38-126); Aspartate Aminotransferase 31 IU/L (14-36); BUN Creatinine Ratio 17.3 (6-22); Bilirubin Total 0.4 mg/dL (0.2-1.3); Blood Urea Nitrogen 9 mg/dL (7-17); Carbon Dioxide 32 mmol/L (22-32); Chloride 90 mmol/L (98-107); Estimated Glomerular Filt Rate > 60.0 mL/min (>60); Globulin 3.2 g/dL (1.7-4.1); Glucose 113 mg/dL (80-110); HEMOLYSIS 26 (0-50); Potassium 3.5 mmol/L (3.4-5.1); Sodium 129 mmol/L (137-145); Total Protein 7.3 g/dL (6.3-8.2)
--- NOTE | 2021-06-24 05:02 | DI.RAD.S_ITS ---
PROCEDURE: XR CHEST 1V INDICATIONS: Shortness of breath TECHNIQUE: One view of the chest was acquired. COMPARISON: None. FINDINGS: Surgical changes and devices: None. Lungs and pleura: Mild increased pulmonary vascularity. Slight appearance of increased right upper lobe opacity. No pleural effusions or pneumothorax. Mediastinum: Mediastinal contours appear normal. Heart size is enlarged. Bones and chest wall: No suspicious bony lesions. Overlying soft tissues appear unremarkable. IMPRESSION: Increased vascularity suggestive of edema. Focal increased opacity in the right upper lobe possibly representing developing pneumonia/atelectasis versus focal edema. The above findings are concordant with preliminary report. Dictated by: Lashawn Clark M.D. on 06/24/2021 at 8:37 Approved by: Lashawn Clark M.D. on 06/24/2021 at 8:37
[2021-06-24] MEDS: SODIUM CHLORIDE 0.9% 1,000 ML 1000 ML IV (05:10)
--- NOTE | 2021-06-24 05:24 | DI.CT.S_ITS ---
PROCEDURE: CT CHEST ABD PEL W CON INDICATIONS: weak, shortness of breath, pneumonia, abdominal pain, nausea, dark stool TECHNIQUE: After the administration of oral and intravenous contrast, axial sections acquired from the supraclavicular neck to the pubic symphysis. Coronal and sagittal reformats were performed. For radiation dose reduction, the following was used: automated exposure control, adjustment of mA and/or kV according to patient size. COMPARISON:[facility], CR, XR CHEST 1V, 06/24/2021, 5:04. [facility], CT, CT KIDNEY URETER BLADDER (KUB), 03/28/2020, 5:58. [facility], CT, CT ANGIO CHEST PE, 08/26/2020, 9:35. FINDINGS: Image quality: Excellent. CHEST: Lower Neck: No enlarged lymph nodes. Thyroid: Within normal limits. Axillae: No enlarged lymph nodes. Chest Wall: Unremarkable. There is a 1.6 x 3.0 cm subcutaneous cyst in the posterior back right of midline at level of T9, most likely a sebaceous cyst. It is unchanged from 08/26/2020. Lungs and Airways: Severe emphysema. There is a 9 mm calcified granuloma in the right upper lobe. Bilateral upper lobe scars. No consolidation or suspicious nodules. Pleura: No pneumothorax or pleural effusions. Heart: Heart size is normal. No pericardial effusion. There is mild coronary artery calcification. Thoracic Vessels: The aorta and pulmonary arteries demonstrate normal size. Mediastinum and Hazel: No enlarged lymph nodes. Esophagus: No wall thickening. Tiny hiatal hernia. ABDOMEN: Liver: Unremarkable. Gallbladder: Gallbladder wall may be mildly thickened. No radiopaque gallstones. Biliary ducts: Unremarkable. Pancreas: Unremarkable. Spleen: Unremarkable. Adrenal Glands: Unremarkable. Kidneys and Ureters: Unremarkable. Stomach and Bowel: Stomach, small bowel loops, and colon are normal in caliber. Diverticulosis without diverticulitis Peritoneum: No abnormal intraperitoneal fluid. No free air. Ventral Wall: No hernia. Abdominal Nodes: No retroperitoneal or mesenteric adenopathy by size criteria. Vessels: Aorta and inferior vena cava are normal in size. Severe atherosclerotic calcifications. PELVIS: Pelvic Organs: There is a 1.6 x 2.1 cm cyst in the left ovary. Right ovary is not well seen. Uterus is unremarkable. No pathological free-fluid in the cul-de-sac. Bladder: Unremarkable. Pelvic Nodes: No enlarged lymph nodes. Miscellaneous: No inguinal hernias are seen. Bones: Moderate chronic compression fracture of T12. Severe degenerative changes in lumbar spine. Left hip arthroplasty. IMPRESSION: 1. Severe emphysema. 2. Bilateral upper lobe scars. 3. Gallbladder wall appears mildly thickened. No gallstones. If clinically indicated, ultrasound may be helpful for further evaluation. 4. Diverticulosis without diverticulitis. 5. A 1.6 x 2.1 cm left ovarian cyst. 6. There is a 1.6 x 2.3 cm sebaceous cyst in the posterior back at the level of T9. The result was discussed with Dr. Burgess. No significant discrepancy with the intake coordinator radiology preliminary report. Please note mild gallbladder wall thickening was not mentioned on the preliminary report. Dictated by: Radha Dent M.D. on 06/24/2021 at 8:31 Approved by: Radha Dent M.D. on 06/24/2021 at 8:56
[2021-06-24] MEDS: cefTRIAXone 2,000 MG in SODIUM CHLORIDE 0.9% 100 ML 200 ML IV (05:50)
--- NOTE | 2021-06-24 06:09 | PC.NURSE ---
Pt reports complaints of chest pain. Pt with increased hr, ekg called. provider aware.
[2021-06-24] MEDS: dilTIAZem 5 MG/ML SDV 10 MG IV (06:12)
[2021-06-24] MEDS: dilTIAZem CD 120 MG CAP PO (06:54)
[2021-06-24 07:39] LABS: COVID19 -Nasal RAPID POSITIVE (Negative)
[2021-06-24 07:47] LABS: Procalcitonin 0.08 ng/mL (<0.5)
[2021-06-24] MEDS: AZITHROMYCIN 500 MG in DEXTROSE 5% IN WATER 250 ML IV (07:50)
[2021-06-24 08:03] LABS: C-Reactive Protein Quant 1.2 mg/dL (<1.0); Lactate Dehydrogenase 480 U/L (313-618); Magnesium 1.7 mg/dL (1.6-2.3)
[2021-06-24 08:14] LABS: Erythrocyte Sedimentation Rate 23 MM/HR (0-20)
[2021-06-24] MEDS: BUDESONIDE 0.5 MG/2 ML NEB INH ×2 (09:11→20:40)
[2021-06-24] MEDS: ALBUTEROL 2.5 MG/3 ML NEB (ADULT) INH ×4 (09:12→20:40)
--- NOTE | 2021-06-24 09:44 | DI.US.S_ITS ---
PROCEDURE: US ABDOMEN LIMITED INDICATIONS: RUQ, GB WALL THICKENING ON CT, ABDOMINAL PAIN TECHNIQUE: Real-time focused scanning was performed of the abdomen, with image documentation. COMPARISON: None. FINDINGS: There is a solitary gallstone identified in the gallbladder measuring approximately 6 mm in diameter. No gallbladder wall thickening. No pain on examination. The liver has a normal echotexture. No dilated ducts. Common bile duct measures 2.6 mm. Pancreas not visualized secondary to overlying bowel gas. IMPRESSION: Cholelithiasis without evidence of acute cholecystitis. Dictated by: Allen Wadsworth M.D. on 06/24/2021 at 13:28 Approved by: Allen Wadsworth M.D. on 06/24/2021 at 13:30
[2021-06-24] MEDS: ENOXAPARIN 40 MG/0.4 ML SYRINGE SUBCUT (10:08)
[2021-06-24] MEDS: DEXAMETHASONE 10 MG/ML VIAL 6 MG IV (10:08)
[2021-06-24] MEDS: MONTELUKAST 10 MG TABLET PO (10:09)
[2021-06-24] MEDS: HYDROCODONE/ACET 5/325 TABLET 2 TAB PO ×3 (11:20→21:33)
--- NOTE | 2021-06-24 12:21 | PM.HP.1 ---
History of Present Illness History of Present Illness Date Patient Seen: 06/24/21 Time Patient Seen: 12:15 Chief complaint: Weakness x2days Narrative: Berna House is a 75 y.o. female with a history of paroxysmal atrial fibrillaton, COPD with chronic hypoxemic respiratory failure on 3L O2, HTN who presented to the emergency room via EMS for evaluation of worsening shortness of breath and oxygen requirements as well as weakness over the past few days. The patient reports that she has had worsening shortness of breath over the past day, with increased sputum production and color change to more of a cloudy white as opposed to her usual clear appearance. She denies any fevers or chills, runny nose, nasal congestion, known sick contacts. She had to increase her home oxygen from 3 L to 5 L over the past day. In addition to her shortness of breath and cough she reports being severely nauseated without any vomiting. She has noticed dark stools over the past day or so but also took Pepto-Bismol for her initial symptoms as her nausea started a few days ago. She reports some lower abdominal pain, nonradiating, and dull. There is no radiation into her back, upper abdomen, or groin. She may have some slight burning with urination, but no urinary frequency. She also reports severe weakness, to the point of being unable to get up since yesterday. Patient reported she got the single Vignesh and Vignesh COVID vaccine but no boosters. In the emergency room, the patient was mildly hypertensive and tachycardic. She was found to be in atrial fibrillation with rapid ventricular response. She had not taken her home diltiazem which was restarted with improvement in her rate. She was in the upper 90s on 4 L of nasal cannula. Laboratory evaluation revealed an unremarkable CBC. Chemistry showed a mild hyponatremia, which the patient has a history of, and no other significant abnormalities. COVID-19 testing was positive. Chest x-ray showed a possible right upper lobe pneumonia with possible vascular congestion. CT scan showed upper lobe scarring and a calcified granuloma, but no consolidations or evidence of pneumonia. It also showed some mild gallbladder wall thickening, though this was not seen on ultrasound performed later. Patient History Medical History COPD (chronic obstructive pulmonary disease) Hypertension Joint pain Kidney stones Trigger finger Surgical History History of hip replacement History of nephrolithotomy with removal of calculi Family & Social History Family History Mother Coronary artery disease Sister Heart problem Social History: household members family Safety & Behavioral: Feels Safe in Current Yes Environment Tobacco & Substance use: Smoking Status Former smoker alcohol intake former alcohol intake frequency 0-2 drinks per day Substance Use Type does not use Meds Home Medications and Allergies Home Medications Medication Instructions Recorded Confirmed Type albuterol sulfate 90 mcg/actuation 90 mcg INHALATION PRN PRN 11/07/20 06/24/21 History aerosol inhaler (ProAir HFA) atorvastatin 20 mg tablet 20 mg PO DAILY 11/07/20 06/24/21 History citalopram 20 mg tablet 20 mg PO DAILY 11/07/20 06/24/21 History diltiazem HCl 120 mg 120 mg PO DAILY 11/07/20 06/24/21 History capsule,extended release 24 hr fluticasone propionate 50 50 mcg INTRANASAL BID 11/07/20 06/24/21 History mcg/actuation nasal spray,suspension gabapentin 300 mg capsule 300 mg PO TID 11/07/20 06/24/21 History hydrocodone 7.5 mg-acetaminophen 1 tab PO QID 11/07/20 06/24/21 History 325 mg tablet ibandronate 150 mg tablet 150 mg PO Q1-2M 11/07/20 06/24/21 History montelukast 10 mg tablet 10 mg PO DAILY 11/07/20 06/24/21 History cyclobenzaprine 10 mg tablet 10 mg TID 12/03/20 06/24/21 History levalbuterol HCl 1.25 mg/3 mL 1.25 mg INHALATION DAILY 02/02/21 06/24/21 History solution for nebulization carbidopa 25 mg-levodopa 100 mg 1 tab PO BEDTIME 02/23/21 06/24/21 History tablet fluticasone 250 mcg-salmeterol 50 1 inh INHALATION BID 02/23/21 06/24/21 History mcg/dose blistr powdr for inhalation (Advair Diskus) hydrochlorothiazide 12.5 mg capsule 12.5 mg PO DAILY 02/23/21 06/24/21 History ferrous sulfate 325 mg (65 mg 325 mg PO DAILY 06/24/21 06/24/21 History iron) tablet Allergies Allergy/AdvReac Type Severity Reaction Status Date / Time No Known Drug Allergies Allergy Verified 01/18/21 11:11 Review of Systems Review of Systems Narrative: All other systems reviewed with the patient and are negative unless otherwise stated. Exam Vital Signs (past 8 hours): - 06/24/21 04:30 06/24/21 05:00 06/24/21 05:08 Temperature Pulse Rate 111 H 114 H 105 H Respiratory Rate 24 30 H 22 Blood Pressure 153/83 H Pulse Oximetry 100 100 06/24/21 05:30 06/24/21 05:52 06/24/21 06:00 Temperature Pulse Rate 105 H 120 H 125 H Respiratory Rate 23 25 H 25 H Blood Pressure 178/82 H 153/72 H 153/76 H Pulse Oximetry 100 100 100 06/24/21 06:12 06/24/21 06:30 06/24/21 07:00 Temperature Pulse Rate 152 H 111 H 137 H Respiratory Rate 26 H 28 H Blood Pressure 136/66 Pulse Oximetry 100 06/24/21 07:16 06/24/21 07:30 06/24/21 08:00 Temperature 97.4 F L Pulse Rate 101 H 115 H 107 H Respiratory Rate 25 H 26 H 24 Blood Pressure 136/66 Pulse Oximetry 98 99 99 06/24/21 08:30 06/24/21 08:45 Temperature 99.8 F H Pulse Rate 103 H 102 H Respiratory Rate 25 H 24 Blood Pressure 131/60 141/69 H Pulse Oximetry 100 100 Oxygen Delivery Method Nasal Cannula Oxygen Flow Rate 3 Narrative Exam Narrative: General:? Patient is well developed, chronically ill appearing female, appears fatigued but in no acute distress. HEENT:? Normocephalic, atraumatic, extraocular muscles intact, oral pharynx is clear and mucous membranes are moist. Neck: supple and symmetric, trachea is midline, no cervical adenopathy. Negative for JVD Chest:? Normal AP diameter and contour without kyphoscoliosis, no tachypnea, equal chest rise bilaterally. Lungs:? bibasilar rhonchi, no wheezing. Normal respiratory effort. Cardio:?RRR no m/r/g. Abdomen: S mild suprapubic tenderness, no distention. Musculoskeletal:? Muscle strength and tone are equal within normal limits, no deformity. Extremities: No edema or joint effusions. No cyanosis or clubbing. Skin:? Pale,? Warm to touch,dry and intact without rashes, ulcerations or petechiae.? Neuro:? Alert and orientated x3,? sensation to touch intact in all extremities, no gross deficits noted of cranial nerves. Psych:? Patient has a well-kept appearance, appropriate affect, mental status attitude thought context and judgment are appropriate for age. Objective ECG Impression: Atrial fibrillation with rapid ventricular response, artifact makes interpretation difficult. No obvious ST or T wave abnormalities. Imaging CT scan - chest: Radiologist's impression: CHEST: Lower Neck: No enlarged lymph nodes.? Thyroid: Within normal limits. Axillae: No enlarged lymph nodes. Chest Wall:? Unremarkable.? There is a 1.6 x 3.0 cm subcutaneous cyst in the posterior back right of midline at level of T9, most likely a sebaceous cyst.? It is unchanged from 08/26/2020. ? Lungs and Airways:? Severe emphysema.? There is a 9 mm calcified granuloma in the right upper lobe.? Bilateral upper lobe scars.? No consolidation or suspicious nodules. Pleura: No pneumothorax or pleural effusions.? ? Heart: Heart size is normal.? No pericardial effusion.? There is mild coronary artery calcification. Thoracic Vessels: The aorta and pulmonary arteries demonstrate normal size.? Mediastinum and Hazel: No enlarged lymph nodes.? Esophagus: No wall thickening.? Tiny hiatal hernia. ? ? ABDOMEN: Liver:? Unremarkable.? ? Gallbladder:? Gallbladder wall may be mildly thickened.? No radiopaque gallstones.? ? Biliary ducts:? Unremarkable.? ? Pancreas:? Unremarkable.? ? Spleen:? Unremarkable.? ? Adrenal Glands:? Unremarkable.? ? Kidneys and Ureters:? Unremarkable.? ? ? Stomach and Bowel:? Stomach, small bowel loops, and colon are normal in caliber.? Diverticulosis without diverticulitis Peritoneum:? No abnormal intraperitoneal fluid.? No free air.? ? Ventral Wall: ? No hernia.? Abdominal Nodes:? No retroperitoneal or mesenteric adenopathy by size criteria.? Vessels:? Aorta and inferior vena cava are normal in size.? Severe atherosclerotic calcifications. ? PELVIS: Pelvic Organs:? There is a 1.6 x 2.1 cm cyst in the left ovary.? Right ovary is not well seen.? Uterus is unremarkable.? No pathological free-fluid in the cul-de-sac.? ? Bladder:? Unremarkable.? ? Pelvic Nodes: No enlarged lymph nodes.? Miscellaneous: No inguinal hernias are seen. ? ? ? Bones:? Moderate chronic compression fracture of T12.? Severe degenerative changes in lumbar spine.? Left hip arthroplasty. ? IMPRESSION:? ? 1.? Severe emphysema. ? 2.? Bilateral upper lobe scars. ? 3.? Gallbladder wall appears mildly thickened.? No gallstones.? If clinically indicated, ultrasound may be helpful for further evaluation. ? 4. Diverticulosis without diverticulitis. ? 5. A 1.6 x 2.1 cm left ovarian cyst. ? 6.? There is a 1.6 x 2.3 cm sebaceous cyst in the posterior back at the level of T9. ? Chest x-ray: My impression: Increased vasculature and lung volumes, there is round right upper lobe consolidation. When compared with already performed CT scan this appears to be consistent with a calcified granuloma. Labs Result Diagrams: 06/24/21 04:40 06/24/21 04:40 Labs: Laboratory Results - last 24 hr 06/24/21 06/24/21 06/24/21 04:40 04:40 04:40 WBC 6.1 RBC 3.96 L Hgb 11.7 L Hct 35.4 L MCV 89.6 MCH 29.6 MCHC 33.1 RDW 13.8 Plt Count 222 Neut % (Auto) 77.5 H Lymph % (Auto) 10.9 L [place] % (Auto) 11.4 Eos % (Auto) 0.0 L Baso % (Auto) 0.2 Neut # (Auto) 4700 Lymph # (Auto) 700 L [place] # (Auto) 700 Eos # (Auto) 0 Baso # (Auto) 0 ESR PT 11.7 INR 1.1 Sodium 129 L Potassium 3.5 Chloride 90 L Carbon Dioxide 32 BUN 9 Creatinine 0.52 Estimated GFR > 60.0 BUN/Creatinine Ratio 17.3 Glucose 113 H Calcium 9.0 Magnesium Total Bilirubin 0.4 AST 31 ALT 17 Alkaline Phosphatase 61 Lactate Dehydrogenase C-Reactive Protein Total Protein 7.3 Albumin 4.1 Globulin 3.2 Albumin/Globulin Ratio 1.3 Procalcitonin SARS-CoV-2 (PCR) Blood Type Antibody Screen 06/24/21 06/24/21 06/24/21 04:40 04:40 04:40 WBC RBC Hgb Hct MCV MCH MCHC RDW Plt Count Neut % (Auto) Lymph % (Auto) [place] % (Auto) Eos % (Auto) Baso % (Auto) Neut # (Auto) Lymph # (Auto) [place] # (Auto) Eos # (Auto) Baso # (Auto) ESR 23 H PT INR Sodium Potassium Chloride Carbon Dioxide BUN Creatinine Estimated GFR BUN/Creatinine Ratio Glucose Calcium Magnesium Total Bilirubin AST ALT Alkaline Phosphatase Lactate Dehydrogenase C-Reactive Protein Total Protein Albumin Globulin Albumin/Globulin Ratio Procalcitonin 0.08 SARS-CoV-2 (PCR) Blood Type A Negative Antibody Screen Negative 06/24/21 06/24/21 04:40 07:01 WBC RBC Hgb Hct MCV MCH MCHC RDW Plt Count Neut % (Auto) Lymph % (Auto) [place] % (Auto) Eos % (Auto) Baso % (Auto) Neut # (Auto) Lymph # (Auto) [place] # (Auto) Eos # (Auto) Baso # (Auto) ESR PT INR Sodium Potassium Chloride Carbon Dioxide BUN Creatinine Estimated GFR BUN/Creatinine Ratio Glucose Calcium Magnesium 1.7 Total Bilirubin AST ALT Alkaline Phosphatase Lactate Dehydrogenase 480 C-Reactive Protein 1.2 H Total Protein Albumin Globulin Albumin/Globulin Ratio Procalcitonin SARS-CoV-2 (PCR) Positive H Blood Type Antibody Screen Assessment & Plan Assessment & Plan narrative: Berna House is a 75 y.o. female with a history of paroxysmal atrial fibrillaton, COPD with chronic hypoxemic respiratory failure on 3L O2, HTN who presented to the emergency room via EMS for evaluation of worsening shortness of breath and oxygen requirements as well as weakness over the past few days. She is admitted with acute on chronic respiratory failure with hypoxia secondary to COPD exacerbation, likely due to COVID-19 infection with possible pneumonia. 1. Acute on chronic respiratory failure with hypoxia - Patient reports needing increased O2 requirements at home. Usually on 3L but needed 5L. - she has had rapid improvement with nebulizer treatments and steroids today. Now only requiring 1L to maintain O2 saturations >89%. - continue steroids for COPD exacerbation as noted below, as well as for possible COVID pneumonia. 2. COPD exacerbation - continue nebulizer therapies, probably in setting of COVID viral infection. - continue decadrone for treatment of severe COVID pneumonia given acute on chronic respiratory failure and treatment of COPD exacerbation. - add azithro for antiinflammatory effect. 3. COVID 19 infection with possible pneumonia - CT scan without obvious findings of pneumonia, but will treat with steroids given COPD exacerbation as discussed above. - inflammatory markers are mildly elevated. - patient vaccinated with 1 dose of J&J vaccine. No boosters given. 4. paroxysmal atrial fibrillation with rapid ventricular response - no longer on AC due to prior bleeding. - now controlled after resuming home medications, now back in NSR 5. Hyperlipidemia, chronic - continue home medications 6. anemia, chronic - continue home iron 7. HTN - continue home antihypertensives 8. Abdominal pain and nausea - UA ordered. Suspect secondary to COVID 19 infection. 9. Dark stools - likely related to pepto bismol. Had recent outpatient colonoscopy with hemorrhoids and a few polyps. Will continue to follow h/h. Code: Full, surrogate decision maker is the patient's son Dispo: admitted under inpatient status DVT: Lovenox daily Time Spent With Patient Critical Care time: I spent a total of [] minutes of critical care time on this patient's care today; this time is exclusive of procedural time.
[2021-06-24] MEDS: CYCLOBENZAPRINE 10 MG TABLET PO ×2 (15:40→21:32)
[2021-06-24] MEDS: GABAPENTIN 300 MG CAPSULE PO ×2 (15:40→21:34)
[2021-06-24 16:14] LABS: Hematocrit 32.7 % (36-46); Hemoglobin 10.9 g/dL (12.0-16.0)
--- NOTE | 2021-06-24 16:49 | PC.ADMIT ---
[address] Admission Note: The patient,Berna House,75 y/o, was given written information regarding hospital policies, unit procedures and contact persons. Patient's smoking status: Former smoker. Pt arrived from ED at approx 0845. A/O, trans via slider board to bed. Placed on Special droplet Isolation r/t positive COVID-19. Oriented to room and call system. 3L NC applied, R.T. in for eval/treat, SCD's and Tele placed on, CPOX on. Bed alarm on. Pt verbalized she will call for needs. Vital Signs - 8 hr 06/24/21 09:15 06/24/21 12:38 06/24/21 12:48 Temperature 99.1 F Pulse Rate 94 H Respiratory Rate 18 Blood Pressure 126/63 Pulse Oximetry 100 97 98 06/24/21 15:30 06/24/21 15:54 Temperature 99.0 F Pulse Rate 99 H Respiratory Rate 18 Blood Pressure 149/91 H Pulse Oximetry 95 95
[2021-06-24 20:38] LABS: Appearance Urine UA CLEAR; Bilirubin Urine UA NEGATIVE (NEGATIVE); Color Urine UA YELLOW; Glucose Urine UA NEGATIVE (Negative); Ketones Urine UA 1+ (NEGATIVE); Leukocyte Esterase Urine UA NEGATIVE (NEGATIVE); Nitrite Urine UA NEGATIVE (Negative); Occult Blood Urine UA TRACE-LYSED (Negative); Protein Urine UA NEGATIVE (Negative); Urobilinogen Urine UA 0.2 E.U./dL (0.2)
[2021-06-24 20:41] LABS: Amorphous Sediment Urine 1+; RBC Urine 0-1/HPF (0-5/HPF); Squamous Epithelial Cell Urine 1-5 /HPF (0-5/HPF); WBC Urine 1-5/HPF (0-5/HPF)
[2021-06-24 20:42] LABS: Bacteria Urine Occasional (0-1); Culture Indicated Urine Specimen Cultured; Mucus Urine 1+ (Negative)
[2021-06-24] MEDS: MAGNESIUM CHLORIDE 64 MG TABLET 128 MG PO (21:33)
[2021-06-24] MEDS: SODIUM CHLORIDE 0.9% FLUSH 10 ML IV (21:34)
[2021-06-24] MEDS: CARBIDOPA-LEVODOPA 25/100 TABLET 1 EACH PO (21:34)
[2021-06-25] VITALS (9 sets, daily range): BP systolic 100–146; BP diastolic 67–91; PULSE 68–100; RESP 14–22; TEMP 36.3–36.8; O2SAT 90–98
[2021-06-25] MEDS: HYDROCODONE/ACET 5/325 TABLET 2 TAB PO (05:38)
[2021-06-25 06:02] LABS: Add Manual Diff / Slide Review NO; Basophils Absolute Auto 0 /uL (0-100); Basophils Percent Auto 0.2 % (0-2); Eosinophils Absolute Auto 0 /uL (0-450); Hematocrit 33.2 % (36-46); Hemoglobin 10.9 g/dL (12.0-16.0); Lymphocytes Absolute Auto 400 /uL (1100-4500); Lymphocytes Percent Auto 14.1 % (25-40); Mean Corpuscular Hemoglobin 29.4 PG (26-34); Mean Corpuscular Volume 89.3 fL (80-100); Monocytes Absolute Auto 400 /uL (0-900); Monocytes Percent Auto 13.8 % (3-14); Neutrophils Absolute Auto 2000 /uL (1500-7000); Neutrophils Percent Auto 71.9 % (50-75); Platelet Count 205 X10^3/uL (150-400); Red Blood Cell Count 3.72 X10^6/uL (4.0-5.2); Red Cell Distribution Width 13.7 % (11.6-14.8); White Blood Cell Count 2.8 X10^3/uL (4.5-11.0)
[2021-06-25 06:22] LABS: BUN Creatinine Ratio 20.4 (6-22); Blood Urea Nitrogen 11 mg/dL (7-17); Calcium 8.7 mg/dL (8.4-10.2); Carbon Dioxide 32 mmol/L (22-32); Chloride 95 mmol/L (98-107); Estimated Glomerular Filt Rate > 60.0 mL/min (>60); Glucose 95 mg/dL (80-110); HEMOLYSIS < 15 (0-50); Potassium 3.6 mmol/L (3.4-5.1); Sodium 133 mmol/L (137-145)
[2021-06-25] MEDS: BUDESONIDE 0.5 MG/2 ML NEB INH ×2 (08:55→20:31)
[2021-06-25] MEDS: ALBUTEROL 2.5 MG/3 ML NEB (ADULT) INH ×4 (08:55→20:31)
[2021-06-25] MEDS: hydroCHLOROthiazide 25 MG TABLET 12.5 MG PO (09:57)
[2021-06-25] MEDS: CITALOPRAM 10 MG TABLET 20 MG PO (09:57)
[2021-06-25] MEDS: FERROUS SULFATE 325 MG TABLET PO (09:57)
[2021-06-25] MEDS: MONTELUKAST 10 MG TABLET PO (09:57)
[2021-06-25] MEDS: CYCLOBENZAPRINE 10 MG TABLET PO ×3 (09:57→20:06)
[2021-06-25] MEDS: ATORVASTATIN 20 MG TABLET PO (09:57)
[2021-06-25] MEDS: DEXAMETHASONE 10 MG/ML VIAL 6 MG IV (09:58)
[2021-06-25] MEDS: GABAPENTIN 300 MG CAPSULE PO ×3 (09:58→20:06)
[2021-06-25] MEDS: AZITHROMYCIN 250 MG TABLET PO (09:58)
[2021-06-25] MEDS: ENOXAPARIN 40 MG/0.4 ML SYRINGE SUBCUT (09:58)
[2021-06-25] MEDS: SODIUM CHLORIDE 0.9% FLUSH 10 ML IV ×2 (10:00→20:07)
[2021-06-25] MEDS: HYDROCODONE/ACET 5/325 TABLET 1 TAB PO ×3 (10:06→20:19)
[2021-06-25] MEDS: dilTIAZem CD 120 MG CAP PO (10:06)
--- NOTE | 2021-06-25 14:45 | PT.IIE ---
Current Diagnoses Acute and chronic respiratory failure with hypoxia (06/24/21) Surgical History (Last Reviewed 06/24/21 @ 12:22 by Marcos Burgess DO) History of nephrolithotomy with removal of calculi Medical History (Last Reviewed 06/24/21 @ 12:22 by Marcos Burgess DO) COPD (chronic obstructive pulmonary disease) Hypertension Joint pain Kidney stones Trigger finger Physical Therapy Inpatient Evaluation/Re-Eval M1 PT/OT-IP Prior Functional Status Start: 06/25/21 16:22 Freq: NEEDED Status: Active Protocol: Document 06/25/21 14:45 AB (Rec: 06/25/21 16:40 AB [email or web address]) Medical Review Prior Functional Status Medical History Reviewed Yes Communication able to make needs known Mobility and Gait pt stated that her son/DIL assists her with her needs: toileting, shower. stated that she is able to ambulate short distance using FWW with her son assisting her. if her son is not around or doing errands, she has a bedside commode and she is able to do a pivot transfer without AD to transfer. she only ambulates to the toilet with assist available. Social History Household Members family Living Arrangements House Number of Floors (Floors) One Floor Number of Stairs To Enter/Railing? 1 platform step to [place] Home Environment Standard Height Toilet,Tub/ Shower Home Equipment Bedside Commode,Tub Transfer Bench,Hand Held Shower,Lift Recliner,Grab Bars Near Toilet ,Grab Bars In Shower M2 PT-IP Current Condition Start: 06/25/21 16:22 Freq: NEEDED Status: Active Protocol: Document 06/25/21 14:45 AB (Rec: 06/25/21 16:40 AB [email or web address]) Physical Therapy Current Condition Current Condition Evaluation Date 06/25/21 Treatment Diagnosis Covid PNA; difficulty in walking Onset Date 06/24/21 M3 PT-IP Subjective Start: 06/25/21 16:22 Freq: NEEDED Status: Active Protocol: Document 06/25/21 14:45 AB (Rec: 06/25/21 16:40 AB [email or web address]) Subjective Physical Therapy Visit Type Type Initial Evaluation Visit Start Time 14:45 Visit Stop Time 15:35 Total Visit Minutes 50 Number of PLANER FEEDER Visits 0 Physical Therapy Visit Comments Patient Comments requesting to use the toilet M4 PT-IP Mobility and Gait Start: 06/25/21 16:22 Freq: NEEDED Status: Active Protocol: Document 06/25/21 14:45 AB (Rec: 06/25/21 16:40 AB [id number]) PT-Bed Mobility Assessment Supine to Sit Supine to Sit Contact Guard Assistance PT-Transfer Assessment Sit to and From Stand Sit to and from Stand Moderate Assistance,1 Person Assistance,Use of Upper Extremities Equipment Transfer Assistive Device Gait Belt,Front Wheeled Walker Orthotic/Prosthetic Devices or Brace: No Transfers Transfer Destination Bedside Commode Transfer Technique Stand Step Pivot Transfer Ability Level of Assist Moderate Assistance,Maximum Assistance,1 Person Assistance ,Use of Upper Extremities Comments Mobility Comments pt supine in bed and requesting to use the toilet. completed supine to sit CGA and cues. increase posterior lean intially, cued for balance and posture and able to maintain sitting balance CGA. positioned bed side commode close to pt. pt completed sit to stand max A and cues and step transfer to commode max A and cues. pt completed sit to stand from bedside commode mod to max A and was able to maintain standing using FWW for support mod A while NAC assisted with hygiene care. able to take steps ~ 5 ft towards the chair using FWW mod to max A and cues. presents with shuffling gait. R ankle PF contracture with toe flexor contractures and finger contractures. (+) resting tremors of the trunk. positioned pt on the chair. call light and table placed within reach. Left pt with NAC in room. Gait Assessment Gait Gait Assistance Required: Moderate Assistance,Maximum Assistance,1 Person Assist Distance (Feet) 5 Able to Maintain Weight Bearing Status Yes During Gait Assistive Devices Assistive Device Gait Belt,Front Wheeled Walker Orthotic/Prosthetic Devices or Brace: No Gait Deviations General Gait Pattern Ataxic,Decreased Stride Length ,Decreased Feet Clearance,Step -to Gait Factors Limiting Gait Function Factors Limiting Gait Function Decreased Activity Tolerance, Decreased Sensation,Decreased Strength,Limited Range of Motion,Poor Balance,Poor Safety Awareness,Respiratory Distress PT-Balance Assessment Sitting Balance and Reactions Static Sitting Balance Ability Fair Dynamic Sitting Balance Ability Fair Standing Balance and Reactions Static Standing Balance Ability Poor Dynamic Standing Balance Ability Poor Device Used FWW M5 PT-IP Objective Assessments Start: 06/25/21 16:22 Freq: NEEDED Status: Active Protocol: Document 03/25/22 14:45 AB (Rec: 06/25/21 16:40 AB [id number]) Orientation Orientation/Cognition Level of Alertness Alert Orientation Name,Place,Situation Language Function Ability No Deficits Noted Safety Awareness Decreased Safety Awareness Memory Description No Deficits Noted Gross Range of Motion Upper Extremity ROM Impairments presents with multiple finger contractures Lower Extremity ROM Assessment Bilaterally Impaired Impairments ankle PF contracture: can only go to neutral Strength Lower Extremity Strength Assessment Right Impaired Hip 3+/5 Knee 3+/5 M6 PT-IP Treatment Start: 06/25/21 16:22 Freq: NEEDED Status: Active Protocol: Document 06/25/21 14:45 AB (Rec: 06/25/21 16:40 AB [email or web address]) Physical Therapy Treatment Education Education Provided Safety M7 PT-IP Assessment and Plan Start: 06/25/21 16:22 Freq: NEEDED Status: Active Protocol: Document 06/25/21 14:45 AB (Rec: 06/25/21 16:40 AB [email or web address]) PT Summary Assessment and Plan Potential Rehabilitation Potential Good Status of Condition at Evaluation Evolving Summary Impairments Pain,ROM,Strength,Balance, Coordination,Sensation,Tone, Cognition,Bed Mobility, Transfers,Gait,Activity Tolerance Assessment Summary pt requirng mod to max A with mobility using FWW. pt has family to assist her at home and has been limited with mobility at baseline but stated that she has been having more problems with ambulation prior to hospitalization. will continue to assess progress. will have to complete stair climbing prior to d/c. Goals Bed Mobility Goal Contact Guard Assistance Transfer Goal Contact Guard Assistance,Front Wheeled Walker Gait Goal Contact Guard Assistance,Front Wheel Walker Gait Distance 50 Other Goals up/down 1 steps using FWW min A Days to Meet Goals 10 Frequency of Treatment Frequency Of Treatment Once a Day Treatment Plan Physical Therapy Treatment Plan Bed Mobility Training,Transfer Training,Gait Training, Therapeutic Exercise,Balance Retraining,Discharge Planning, Hot or Cold Pack,Neuromuscular Re-ed,Coordination Retraining ,Manual Therapy Precautions Other Precautions Covid precautions Recommendations To Nursing Amount of Assist Needed 1 Person Assist Discharge Recommendations PT Discharge Recommendations Home with 24/10 Assist Available,Home Health Transportation Needs at Discharge Private Vehicle,Wheelchair/ Cabulance
--- NOTE | 2021-06-25 15:59 | P.PN_ITS ---
Subjective Subjective Date Patient Seen: 06/25/21 Time Patient Seen: 16:00 Interval history: Patient has improved shortness of breath today, but still dyspnic with exertion. Still with increased cough and sputum production. Respiratory culture with gram negative bacilli. Exam Vital Signs (past 8 hours): - 06/25/21 08:56 06/25/21 09:16 06/25/21 12:36 Temperature 98.0 F Pulse Rate 100 H 74 Respiratory Rate 22 14 Blood Pressure 138/90 Pulse Oximetry 96 97 92 06/25/21 14:01 Temperature 97.6 F Pulse Rate 81 Respiratory Rate 19 Blood Pressure 100/67 Pulse Oximetry 97 Oxygen Delivery Method Room Air Oxygen Flow Rate 2 Narrative Exam Narrative: General:? Patient is well developed, chronically ill appearing female, appears fatigued but in no acute distress. HEENT:? Normocephalic, atraumatic, extraocular muscles intact, oral pharynx is clear and mucous membranes are moist. Neck: supple and symmetric, trachea is midline, no cervical adenopathy. Negative for JVD Chest:? Normal AP diameter and contour without kyphoscoliosis, no tachypnea, equal chest rise bilaterally. Lungs:? bibasilar rhonchi, no wheezing. Normal respiratory effort. Cardio:?RRR no m/r/g. Abdomen: S mild suprapubic tenderness, no distention. Musculoskeletal:? Muscle strength and tone are equal within normal limits, no deformity. Extremities: No edema or joint effusions. No cyanosis or clubbing. Skin:? Pale,? Warm to touch,dry and intact without rashes, ulcerations or petechiae.? Neuro:? Alert and orientated x3,? sensation to touch intact in all extremities, no gross deficits noted of cranial nerves. Psych:? Patient has a well-kept appearance, appropriate affect, mental status attitude thought context and judgment are appropriate for age. Objective Labs Result Diagrams: 06/25/21 05:47 06/25/21 05:47 Labs: Laboratory Results - last 24 hr 06/24/21 06/24/21 06/25/21 16:10 19:45 05:47 WBC 2.8 L D RBC 3.72 L Hgb 10.9 L 10.9 L Hct 32.7 L 33.2 L MCV 89.3 MCH 29.4 MCHC 33.0 RDW 13.7 Plt Count 205 Neut % (Auto) 71.9 Lymph % (Auto) 14.1 L [place] % (Auto) 13.8 Eos % (Auto) 0.0 L Baso % (Auto) 0.2 Neut # (Auto) 2000 Lymph # (Auto) 400 L [place] # (Auto) 400 Eos # (Auto) 0 Baso # (Auto) 0 Sodium Potassium Chloride Carbon Dioxide BUN Creatinine Estimated GFR BUN/Creatinine Ratio Glucose Calcium Urine Color Yellow Urine Appearance Clear Urine pH 5.0 Ur Specific [place] 1.010 Urine Protein Negative Urine Glucose (UA) Negative Urine Ketones 1+ H Urine Occult Blood Trace-lysed Urine Nitrate Negative Urine Bilirubin Negative Urine Urobilinogen 0.2 Ur Leukocyte Esterase Negative Urine RBC 0-1/hpf Urine WBC 1-5/hpf Ur Squamous Epith Cells 1-5 /hpf Amorphous Sediment 1+ Urine Bacteria Occasional (0-1) D Urine Mucus 1+ H Ur Culture Indicated? Specimen cultured 06/25/21 05:47 WBC RBC Hgb Hct MCV MCH MCHC RDW Plt Count Neut % (Auto) Lymph % (Auto) [place] % (Auto) Eos % (Auto) Baso % (Auto) Neut # (Auto) Lymph # (Auto) [place] # (Auto) Eos # (Auto) Baso # (Auto) Sodium 133 L Potassium 3.6 Chloride 95 L Carbon Dioxide 32 BUN 11 Creatinine 0.54 Estimated GFR > 60.0 BUN/Creatinine Ratio 20.4 Glucose 95 Calcium 8.7 Urine Color Urine Appearance Urine pH Ur Specific [place] Urine Protein Urine Glucose (UA) Urine Ketones Urine Occult Blood Urine Nitrate Urine Bilirubin Urine Urobilinogen Ur Leukocyte Esterase Urine RBC Urine WBC Ur Squamous Epith Cells Amorphous Sediment Urine Bacteria Urine Mucus Ur Culture Indicated? [facility] Medical History COPD (chronic obstructive pulmonary disease) Hypertension Joint pain Kidney stones Trigger finger Surgical History History of hip replacement History of nephrolithotomy with removal of calculi Family History Mother Coronary artery disease Sister Heart problem Social History marital status: household members: family housing: house Smoking Status: Former smoker alcohol intake: former Assessment & Plan Assessment & Plan narrative: Berna House is a 75 y.o. female with a history of paroxysmal atrial fibrillaton, COPD with chronic hypoxemic respiratory failure on 3L O2, HTN who presented to the emergency room via EMS for evaluation of worsening shortness of breath and oxygen requirements as well as weakness over the past few days.? She is admitted with acute on chronic respiratory failure with hypoxia secondary to COPD exacerbation, likely due to COVID-19 infection with possible pneumonia. 1. Acute on chronic respiratory failure with hypoxia, acute portion resolved. ?- Patient reports needing increased O2 requirements at home. Usually on 3L but needed 5L. ?- she has had rapid improvement with nebulizer treatments and steroids. Now only requiring 1L to maintain O2 saturations >89%. ?- continue steroids for COPD exacerbation as noted below, as well as for possible COVID pneumonia in addition to bacterial pnuemonia on sputum culture. - follow up sputum culture. 2. COPD exacerbation ?- continue nebulizer therapies, probably in setting of COVID viral infection. ?- continue decadrone for treatment of severe COVID pneumonia given acute on chronic respiratory failure and treatment of COPD exacerbation. ?- added azithro for antiinflammatory effect. 3. COVID 19 infection with superimposed bacterial pneumonia ?- CT scan without obvious findings of pneumonia, but sputum culture growing GNB. will treat with steroids and now ceftriaxone and azithromycin given COPD exacerbation as discussed above. ?- inflammatory markers are mildly elevated. ?- patient vaccinated with 1 dose of J&J vaccine. No boosters given. 4. paroxysmal atrial fibrillation with rapid ventricular response ?- no longer on AC due to prior bleeding. ?- now controlled after resuming home medications, now back in NSR 5. Hyperlipidemia, chronic - continue home medications 6. anemia, chronic ?- continue home iron 7.? HTN ?- continue home antihypertensives 8. Abdominal pain and nausea ?- UA was sent for culture, follow up. Started ceftriaxone given possibile b acterial pneumonia as noted above. Suspect this pain though was secondary to COVID 19 infection. 9. Dark stools ?- likely related to pepto bismol. Had recent outpatient colonoscopy with hemorrhoids and a few polyps. H/h was stable today. Code: Full, surrogate decision maker is the patient's son Dispo: admitted under inpatient status, okay to start PT. States she still feels weak. DVT: Lovenox daily Time Spent With Patient Critical Care time: I spent a total of [] minutes of critical care time on this patient's care to day; this time is exclusive of procedural time.
--- NOTE | 2021-06-25 16:09 | CM.IDA ---
Initial DCP Assessment Note Pt is a 75 yo female, resident of [place], presents with increased persistent weakness over the last few days w/ shortness of breath. Found to be C19+ w/acute on chronic resp failure, hypoxia and COPD exacerbation. PCP: Citlali Wei Payer: [facility] Reviewed chart, placed call into patient's room d/t C19+ precautions. Patient breathing well throughout conversation, states she worked with PT and I think I need more of that. Patient's son Michoacano and DIL live w/patient. FITO works, son Michoacano is available to patient throughout the day. Patient has Home O2, walks w/a walker, requires assistance with meal prep, meds, chores/errands and bathing/dressing. Patient denies hx of HH, tells this [employer] she will be going home w/her family and likely won't need HH services. Explained CM team would follow closely in case any DC questions or concerns arose, patient appreciative, states I hope I go home soon Plan: DC home w/family is expected, via family pov. r/o need for HH closer to DC DAYSI Voss Discharge Planning/Care Management CM Discharge Assessment Start: 06/25/21 16:05 Freq: Status: Active Protocol: Document 06/25/21 16:05 LEAH (Rec: 06/25/21 16:09 LEAH [id number]) Discharge Planning Assessment Assigned Creeler DAYSI Boateng DPOA/Assigned Designee Name blayne Escalante Contact Information [phone] Advance Directives? Yes Advance Directives on File No History Provided By Patient,Medical Record Prior Living Arrangements House Household Members family Type of transporation used prior to Relies on Others admit Independent with ADL's No Is patient alert and oriented? Yes Needs Assistance With Bathing,Grooming,Meal Prep, Managing Medications,Home Chores / Shopping Patient/Family Preference Home with Home Health Barriers to Discharge No Comment Patient plans to return home w /her family upon DC and does not think she will need HH services. CM team will follow closely Discharge Plan Home with Home Health Transportation Arrangement Family Referrals Initiated Home Health Additional Comment Will follow closely as medical POC unfolds
[2021-06-25] MEDS: cefTRIAXone 1,000 MG in SODIUM CHLORIDE 0.9% 100 ML 200 ML IV (16:20)
[2021-06-25] MEDS: CARBIDOPA-LEVODOPA 25/100 TABLET 1 EACH PO (20:06)
[2021-06-26] VITALS (8 sets, daily range): BP systolic 100–159; BP diastolic 65–93; PULSE 82–117; RESP 14–22; TEMP 36.2–37.1; O2SAT 96–100
[2021-06-26 05:59] LABS: Add Manual Diff / Slide Review NO; Basophils Absolute Auto 0 /uL (0-100); Basophils Percent Auto 0.1 % (0-2); Eosinophils Absolute Auto 0 /uL (0-450); Hematocrit 33.1 % (36-46); Hemoglobin 10.9 g/dL (12.0-16.0); Lymphocytes Absolute Auto 300 /uL (1100-4500); Lymphocytes Percent Auto 13.7 % (25-40); Mean Corpuscular HGB Conc 32.9 % (30-36); Mean Corpuscular Hemoglobin 29.3 PG (26-34); Monocytes Absolute Auto 400 /uL (0-900); Monocytes Percent Auto 16.4 % (3-14); Neutrophils Absolute Auto 1600 /uL (1500-7000); Neutrophils Percent Auto 69.8 % (50-75); Platelet Count 197 X10^3/uL (150-400); Red Blood Cell Count 3.72 X10^6/uL (4.0-5.2); Red Cell Distribution Width 13.6 % (11.6-14.8); White Blood Cell Count 2.3 X10^3/uL (4.5-11.0)
[2021-06-26 06:10] LABS: BUN Creatinine Ratio 24.6 (6-22); Blood Urea Nitrogen 15 mg/dL (7-17); Calcium 9.1 mg/dL (8.4-10.2); Carbon Dioxide 32 mmol/L (22-32); Chloride 93 mmol/L (98-107); Estimated Glomerular Filt Rate > 60.0 mL/min (>60); Glucose 113 mg/dL (80-110); HEMOLYSIS < 15 (0-50); Potassium 3.6 mmol/L (3.4-5.1); Sodium 132 mmol/L (137-145)
[2021-06-26] MEDS: BUDESONIDE 0.5 MG/2 ML NEB INH ×2 (08:28→20:30)
[2021-06-26] MEDS: ALBUTEROL 2.5 MG/3 ML NEB (ADULT) INH ×3 (08:28→20:30)
[2021-06-26] MEDS: ENOXAPARIN 40 MG/0.4 ML SYRINGE SUBCUT (09:11)
[2021-06-26] MEDS: hydroCHLOROthiazide 25 MG TABLET 12.5 MG PO (09:12)
[2021-06-26] MEDS: CYCLOBENZAPRINE 10 MG TABLET PO ×3 (09:15→21:06)
[2021-06-26] MEDS: MONTELUKAST 10 MG TABLET PO (09:15)
[2021-06-26] MEDS: GABAPENTIN 300 MG CAPSULE PO ×3 (09:16→21:06)
[2021-06-26] MEDS: FERROUS SULFATE 325 MG TABLET PO (09:16)
[2021-06-26] MEDS: CITALOPRAM 10 MG TABLET 20 MG PO (09:16)
[2021-06-26] MEDS: ATORVASTATIN 20 MG TABLET PO (09:17)
[2021-06-26] MEDS: AZITHROMYCIN 250 MG TABLET PO (09:17)
[2021-06-26] MEDS: dilTIAZem CD 120 MG CAP PO (09:17)
[2021-06-26] MEDS: DEXAMETHASONE 10 MG/ML VIAL 6 MG IV (09:19)
[2021-06-26] MEDS: SODIUM CHLORIDE 0.9% FLUSH 10 ML IV ×2 (09:19→23:00)
[2021-06-26] MEDS: HYDROCODONE/ACET 5/325 TABLET 2 TAB PO ×2 (09:38→21:06)
--- NOTE | 2021-06-26 12:23 | PT.IPTN ---
Current Diagnoses Acute and chronic respiratory failure with hypoxia (06/24/21) Physical Therapy Treatment Note M2 PT-IP Current Condition Start: 06/25/21 16:22 Freq: NEEDED Status: Active Protocol: Document 06/25/21 14:45 AB (Rec: 06/25/21 16:40 AB [id number]) Physical Therapy Current Condition Current Condition Evaluation Date 06/25/21 Treatment Diagnosis Covid PNA; difficulty in walking Onset Date 06/24/21 M3 PT-IP Subjective Start: 06/25/21 16:22 Freq: NEEDED Status: Active Protocol: Document 06/26/21 12:00 KS (Rec: 06/26/21 13:13 KS [id number]) Subjective Physical Therapy Visit Type Type Treatment Note Visit Start Time 12:00 Visit Stop Time 12:23 Total Visit Minutes 23 Number of CEMETERY WARDEN Visits 1 Physical Therapy Visit Comments Patient Comments Pt agreeable M4 PT-IP Mobility and Gait Start: 06/25/21 16:22 Freq: NEEDED Status: Active Protocol: Document 06/26/21 12:00 KS (Rec: 06/26/21 13:13 KS [id number]) PT-Bed Mobility Assessment Supine to Sit Supine to Sit Contact Guard Assistance Scooting Scooting to Edge of Bed Contact Guard Assistance PT-Transfer Assessment Sit to and From Stand Sit to and from Stand Moderate Assistance,1 Person Assistance,Use of Upper Extremities Equipment Transfer Assistive Device Gait Belt,Front Wheeled Walker Orthotic/Prosthetic Devices or Brace: No Transfers Transfer Destination Chair Transfer Technique Stand Step Pivot Transfer Ability Level of Assist Moderate Assistance,1 Person Assistance,Use of Upper Extremities Comments Mobility Comments Pt in bed on 2LO2 upon arrival at 98%. CGA for sup<>sit and scooting EOB and O2 95%. Pt sit<>stand w/ FWW Mod A and performed marching in place then c/o SOB and dizziness and O2 mid 80s, raised to 4L. Pt then performed stand step pivot to chair Mod A and cues for FWW w/ max A for slow descent when sitting. Pts O2 86 following transfer but quickly increased to high 90s. Pt c/o racing heartbeat however NE reading only 34 and gradually increased to 115. O2 decreased to 2L but pt falling into 80s when talking and eating so raised back to 3L. Pt O2 89-93% on 3L and oayed by RN. Pt left in chair w/ all needs in reach. Gait Assessment Gait Gait Assistance Required: Moderate Assistance,1 Person Assist Distance (Feet) 3 Able to Maintain Weight Bearing Status Yes During Gait Assistive Devices Assistive Device Gait Belt,Front Wheeled Walker Gait Deviations General Gait Pattern Ataxic,Decreased Stride Length ,Decreased Feet Clearance,Step -to Gait Factors Limiting Gait Function Factors Limiting Gait Function Decreased Activity Tolerance, Decreased Sensation,Decreased Strength,Limited Range of Motion,Poor Balance,Poor Safety Awareness,Respiratory Distress Comments Gait Comments Marching in place and stand step pivot only. PT-Balance Assessment Sitting Balance and Reactions Static Sitting Balance Ability Fair Dynamic Sitting Balance Ability Fair Standing Balance and Reactions Static Standing Balance Ability Poor Dynamic Standing Balance Ability Poor Device Used FWW M5 PT-IP Objective Assessments Start: 06/25/21 16:22 Freq: NEEDED Status: Active Protocol: Document 06/25/21 14:45 AB (Rec: 06/25/21 16:40 AB [id number]) Orientation Orientation/Cognition Level of Alertness Alert Orientation Name,Place,Situation Language Function Ability No Deficits Noted Safety Awareness Decreased Safety Awareness Memory Description No Deficits Noted Gross Range of Motion Upper Extremity ROM Impairments presents with multiple finger contractures Lower Extremity ROM Assessment Bilaterally Impaired Impairments ankle PF contracture: can only go to neutral Strength Lower Extremity Strength Assessment Right Impaired Hip 3+/5 Knee 3+/5 M6 PT-IP Treatment Start: 06/25/21 16:22 Freq: NEEDED Status: Active Protocol: Document 06/26/21 12:00 KS (Rec: 06/26/21 13:13 KS [id number]) Physical Therapy Treatment Exercises Exercises Ankle Pumps Education Education Provided Safety Other Treatments Other Treatment Performed Marching in place. M7 PT-IP Assessment and Plan Start: 06/25/21 16:22 Freq: NEEDED Status: Active Protocol: Document 06/26/21 12:00 KS (Rec: 06/26/21 13:13 KS [id number]) PT Summary Assessment and Plan Potential Rehabilitation Potential Good Status of Condition at Evaluation Evolving Summary Impairments Pain,ROM,Strength,Balance, Coordination,Sensation,Tone, Cognition,Bed Mobility, Transfers,Gait,Activity Tolerance Assessment Summary Pt CGA for bed mobility, Mod A for sit<>Stand and transfer w / FWW and Max A for slow descent when sitting in chair. Pt limited by weakness and SOB w/ O2 desat w/ exertion. Her NE dropped to 30's and gradually todd to 115 after transfer. RN aware. 4L for mobility. will continue to assess progress. will have to complete stair climbing prior to d/c. Goals Bed Mobility Goal Contact Guard Assistance Transfer Goal Contact Guard Assistance,Front Wheeled Walker Gait Goal Contact Guard Assistance,Front Wheel Walker Gait Distance 50 Other Goals up/down 1 steps using FWW min A Days to Meet Goals 10 Frequency of Treatment Frequency Of Treatment Once a Day Treatment Plan Physical Therapy Treatment Plan Bed Mobility Training,Transfer Training,Gait Training, Therapeutic Exercise,Balance Retraining,Discharge Planning, Hot or Cold Pack,Neuromuscular Re-ed,Coordination Retraining ,Manual Therapy Precautions Other Precautions Covid precautions Recommendations To Nursing Amount of Assist Needed 1 Person Assist Discharge Recommendations PT Discharge Recommendations Home with 24/10 Assist Available,Home Health Transportation Needs at Discharge Private Vehicle,Wheelchair/ Cabulance
--- NOTE | 2021-06-26 14:10 | PM.PN.1 ---
Subjective Subjective Date Patient Seen: 06/26/21 Time Patient Seen: 08:00 Interval history: At rest she feels back to her baseline, but still is quite short of breath with activity. Exam Vital Signs (past 8 hours): - 06/26/21 08:05 06/26/21 08:29 06/26/21 11:50 Temperature 97.5 F L 97.8 F Pulse Rate 85 82 117 H Respiratory Rate 22 16 19 Blood Pressure 152/82 H 159/78 H Pulse Oximetry 97 97 98 Oxygen Delivery Method Nasal Cannula Oxygen Flow Rate 2 Narrative Exam Narrative: General:? no acute distress Lungs:? mild respiratory distress, coarse breath sounds Cardio: Tachycardic Abdomen: soft, nontender Objective Labs Result Diagrams: 06/26/21 05:28 06/26/21 05:28 Labs: Laboratory Results - last 24 hr 06/25/21 06/26/21 06/26/21 16:14 05:28 05:28 WBC 2.3 L RBC 3.72 L Hgb 10.9 L Hct 33.1 L MCV 89.0 MCH 29.3 MCHC 32.9 RDW 13.6 Plt Count 197 Neut % (Auto) 69.8 Lymph % (Auto) 13.7 L [place] % (Auto) 16.4 H Eos % (Auto) 0.0 L Baso % (Auto) 0.1 Neut # (Auto) 1600 Lymph # (Auto) 300 L [place] # (Auto) 400 Eos # (Auto) 0 Baso # (Auto) 0 Sodium 132 L Potassium 3.6 Chloride 93 L Carbon Dioxide 32 BUN 15 Creatinine 0.61 Estimated GFR > 60.0 BUN/Creatinine Ratio 24.6 H Glucose 113 H Calcium 9.1 Magnesium 2.0 PFSH Medical History COPD (chronic obstructive pulmonary disease) Hypertension Joint pain Kidney stones Trigger finger Surgical History History of hip replacement History of nephrolithotomy with removal of calculi Family History Mother Coronary artery disease Sister Heart problem Social History marital status: household members: family housing: house Smoking Status: Former smoker alcohol intake: former Assessment & Plan Assessment & Plan narrative: Berna House is a 75 y.o. female with a history of paroxysmal atrial fibrillaton, COPD with chronic hypoxemic respiratory failure on 3L O2, HTN who presented to the emergency room via EMS for evaluation of worsening shortness of breath and oxygen requirements as well as weakness over the past few days.? She is admitted with acute on chronic respiratory failure with hypoxia secondary to COPD exacerbation, likely due to COVID-19 infection with possible pneumonia. 1. Acute on chronic respiratory failure with hypoxia, improving ?- Patient reports needing increased O2 requirements at home. Usually on 3L but needed 5L. ?- she has had rapid improvement with nebulizer treatments and steroids. Now only requiring 1L to maintain O2 saturations >89%. ?- continue steroids for COPD exacerbation as noted below, as well as for possible COVID pneumonia in addition to bacterial pnuemonia on sputum culture. 2. COPD exacerbation ?- continue nebulizer therapies, probably in setting of COVID viral infection. ?- continue decadrone for treatment of severe COVID pneumonia given acute on chronic respiratory failure and treatment of COPD exacerbation. ?- stop azithro, start levaquin 3. COVID 19 infection with superimposed bacterial pneumonia ?- CT scan without obvious findings of pneumonia, but sputum culture growing pseudomonas. will treat with steroids and switch antibiotics to levofloxacin ?- inflammatory markers are mildly elevated. ?- patient vaccinated with 1 dose of J&J vaccine. No boosters given. 4. paroxysmal atrial fibrillation with rapid ventricular response ?- no longer on AC due to prior bleeding. ?- now controlled after resuming home medications, now back in NSR 5. Hyperlipidemia, chronic - continue home medications 6. anemia, chronic ?- continue home iron 7.? HTN ?- continue home antihypertensives 8. Abdominal pain and nausea ?- UA was sent for culture, follow up. Started ceftriaxone given possible bacterial pneumonia as noted above. Suspect this pain though was secondary to COVID 19 infection. Time Spent With Patient Critical Care time: I spent a total of [] minutes of critical care time on this patient's care today; this time is exclusive of procedural time.
[2021-06-26] MEDS: levoFLOXacin 750 MG/150 ML PIGGYBACK 100 MG IV (15:28)
[2021-06-26] MEDS: CARBIDOPA-LEVODOPA 25/100 TABLET 1 EACH PO (21:06)
[2021-06-27 04:40] VITALS: BP 126/93; PULSE 73; RESP 22; TEMP 36.4; O2SAT 96
[2021-06-27 05:59] LABS: Add Manual Diff / Slide Review NO; Basophils Absolute Auto 0 /uL (0-100); Eosinophils Absolute Auto 0 /uL (0-450); Hemoglobin 10.8 g/dL (12.0-16.0); Lymphocytes Absolute Auto 300 /uL (1100-4500); Lymphocytes Percent Auto 8.9 % (25-40); Mean Corpuscular HGB Conc 32.6 % (30-36); Mean Corpuscular Hemoglobin 29.2 PG (26-34); Mean Corpuscular Volume 89.5 fL (80-100); Monocytes Absolute Auto 600 /uL (0-900); Monocytes Percent Auto 16.5 % (3-14); Neutrophils Absolute Auto 2800 /uL (1500-7000); Neutrophils Percent Auto 74.6 % (50-75); Platelet Count 205 X10^3/uL (150-400); Red Blood Cell Count 3.69 X10^6/uL (4.0-5.2); Red Cell Distribution Width 13.9 % (11.6-14.8); White Blood Cell Count 3.7 X10^3/uL (4.5-11.0)
[2021-06-27 06:02] LABS: Blood Urea Nitrogen 24 mg/dL (7-17); Calcium 9.1 mg/dL (8.4-10.2); Carbon Dioxide 32 mmol/L (22-32); Chloride 91 mmol/L (98-107); Estimated Glomerular Filt Rate > 60.0 mL/min (>60); Glucose 114 mg/dL (80-110); HEMOLYSIS < 15 (0-50); Potassium 3.3 mmol/L (3.4-5.1); Sodium 129 mmol/L (137-145)
[2021-06-27 08:00] VITALS: BP 104/76; PULSE 81; RESP 17; TEMP 36.3; O2SAT 97
--- NOTE | 2021-06-27 08:17 | PM.DS.1 ---
History of Present Illness History of Present Illness Chief complaint: Weakness x2days Narrative: Berna House is a 75 y.o. female with a history of paroxysmal atrial fibrillaton, COPD with chronic hypoxemic respiratory failure on 3L O2, HTN who presented to the emergency room via EMS for evaluation of worsening shortness of breath and oxygen requirements as well as weakness over the past few days.? The patient reports that she has had worsening shortness of breath over the past day, with increased sputum production and color change to more of a cloudy white as opposed to her usual clear appearance.? She denies any fevers or chills, runny nose, nasal congestion, known sick contacts.? She had to increase her home oxygen from 3 L to 5 L over the past day.? In addition to her shortness of breath and cough she reports being severely nauseated without any vomiting.? She has noticed dark stools over the past day or so but also took Pepto-Bismol for her initial symptoms as her nausea started a few days ago.? She reports some lower abdominal pain, nonradiating, and dull.? There is no radiation into her back, upper abdomen, or groin.? She may have some slight burning with urination, but no urinary frequency.? She also reports severe weakness, to the point of being unable to get up since yesterday.? Patient reported she got the single Vignesh and Vignesh COVID vaccine but no boosters. In the emergency room, the patient was mildly hypertensive and tachycardic.? She was found to be in atrial fibrillation with rapid ventricular response.? She had not taken her home diltiazem which was restarted with improvement in her rate.? She was in the upper 90s on 4 L of nasal cannula.? Laboratory evaluation revealed an unremarkable CBC.? Chemistry showed a mild hyponatremia, which the patient has a history of, and no other significant abnormalities.? COVID-19 testing was positive.? Chest x-ray showed a possible right upper lobe pneumonia with possible vascular congestion.? CT scan showed upper lobe scarring and a calcified granuloma, but no consolidations or evidence of pneumonia.? It also showed some mild gallbladder wall thickening, though this was not seen on ultrasound performed later. Discharge Providers Provider Date of admission: 06/24/21 06:43 Discharge Date: 06/27/21 Primary care physician: Citlali Wei MD Consults: 06/24/21 06:57 Consult to Respiratory Therapy Evaluate & Treat Comment: Uses Home O2, requiring more w/activity Physician Instructions: Evaluate and treat 06/25/21 13:15 Consult to Physical Therapy Evaluate & Treat Comment: Physician Instructions: Evaluate and Treat 06/25/21 16:00 Consult to Physical Therapy Evaluate & Treat Comment: Physician Instructions: Evaluate and Treat Discharge provider: João Cervantes MD Summary Hospital Course Discharge Diagnosis: 1. Acute on chronic hypoxemic respiratory failure 2. COVID infection 3. Pseudomonas pneumonia 4. Acute COPD exacerbation 5. paroxysmal Afib with RVR 6. HTN 7. HL 8. Iron deficiency anemia Hospital Course: Ms. House was admitted with respiratory distress. At baseline she is at 3L at rest, and 5L with activity. She was found to be COVID positive, and she eventually grew back pseudomonas in her sputum. She was started on steroids and antibiotics. She also was wheezing consistent with COPD flare secondary to these infections. She improved with treatment. She was initially in afib with RVR but improved with treatment of her respiratory issues. She is not on anticoagulation due to history of bleeding. On day of discharge she was back on home her oxygen settings and stated her respiratory status felt back to baseline. She was discharged with steroids and antibiotics. She was encourage to isolate so as not to expose others for another week. Exam Vital Signs (past 8 hours): Oxygen Delivery Method Nasal Cannula Oxygen Flow Rate 2.5 Narrative Exam Narrative: General:? no acute distress Lungs:? mild respiratory distress, coarse breath sounds Cardio: regular rate and rhythm Abdomen: soft, nontender Objective Labs Result Diagrams: 06/27/21 05:30 06/27/21 05:30 [facility] Medical History COPD (chronic obstructive pulmonary disease) Hypertension Joint pain Kidney stones Trigger finger Surgical History History of hip replacement History of nephrolithotomy with removal of calculi Family History Mother Coronary artery disease Sister Heart problem Social History marital status: household members: family housing: house Smoking Status: Former smoker alcohol intake: former Discharge Plan Discharge Plan Patient Disposition: Home Provider Discharge Comment: Ms. House came in to the hospital with a pneumonia and a COPD flare. She was also COVID positive. She was given treatment and improved. She will be discharged on antibiotics and steroids. She should follow up with her doctor in 1-2 weeks. She should try to isolate due to being COVID positive for another week. Discharge orders & Medications Prescriptions: New levofloxacin 750 mg tablet 750 mg PO DAILY Qty: 3 0RF prednisone 50 mg tablet 50 mg PO DAILY Qty: 3 0RF Continued cyclobenzaprine 10 mg tablet 10 mg TID 0RF atorvastatin 20 mg tablet 20 mg PO DAILY 0RF citalopram 20 mg tablet 20 mg PO DAILY 0RF hydrocodone-acetaminophen 7.5-325 mg tablet 1 tab PO QID 0RF Label Comments: TAKE 1 TABLET BY MOUTH EVERY 4 TO 6 HOURS NEEDED gabapentin 300 mg capsule 300 mg PO TID 0RF diltiazem HCl 120 mg capsule,extended release 24hr 120 mg PO DAILY 0RF montelukast 10 mg tablet 10 mg PO DAILY 0RF albuterol sulfate [ProAir HFA] 90 mcg/actuation HFA aerosol inhaler 90 mcg INHALATION PRN PRN (Reason: Bronchodilation) 0RF fluticasone propionate 50 mcg/actuation spray,suspension 50 mcg INTRANASAL BID 0RF ibandronate 150 mg tablet 150 mg PO Q1-2M 0RF levalbuterol HCl 1.25 mg/3 mL Solution For Nebulization 1.25 mg INHALATION DAILY 0RF fluticasone propion-salmeterol [Advair Diskus] 250-50 mcg/dose Blister With Device 1 inh INHALATION BID 0RF hydrochlorothiazide 12.5 mg Capsule 12.5 mg PO DAILY 0RF carbidopa-levodopa 25-100 mg Tablet 1 tab PO BEDTIME 0RF ferrous sulfate 325 mg (65 mg iron) Tablet 325 mg PO DAILY 0RF Follow up/Referrals: Citlali Wei MD [Primary Care Provider] - Diet/Activity/Treatments Diet: Regular Discharge Data Primary Care Provider: Citlali Wei
[2021-06-27 08:42] VITALS: PULSE 86; RESP 14; O2SAT 96
[2021-06-27] MEDS: ALBUTEROL 2.5 MG/3 ML NEB (ADULT) INH (08:42)
[2021-06-27] MEDS: BUDESONIDE 0.5 MG/2 ML NEB INH (08:42)
[2021-06-27] MEDS: POTASSIUM CHLORIDE 20 MEQ TAB 40 MEQ PO (09:25)
[2021-06-27] MEDS: HYDROCODONE/ACET 5/325 TABLET 2 TAB PO (09:26)
[2021-06-27] MEDS: GABAPENTIN 300 MG CAPSULE PO (09:27)
[2021-06-27] MEDS: MONTELUKAST 10 MG TABLET PO (09:27)
[2021-06-27] MEDS: CITALOPRAM 10 MG TABLET 20 MG PO (09:27)
[2021-06-27] MEDS: hydroCHLOROthiazide 25 MG TABLET 12.5 MG PO (09:27)
[2021-06-27] MEDS: CYCLOBENZAPRINE 10 MG TABLET PO (09:27)
[2021-06-27] MEDS: dilTIAZem CD 120 MG CAP PO (09:27)
[2021-06-27] MEDS: ATORVASTATIN 20 MG TABLET PO (09:27)
[2021-06-27] MEDS: DEXAMETHASONE 10 MG/ML VIAL 6 MG IV (09:28)
[2021-06-27] MEDS: FERROUS SULFATE 325 MG TABLET PO (09:28)
[2021-06-27] MEDS: ENOXAPARIN 40 MG/0.4 ML SYRINGE SUBCUT (09:28)
[2021-06-27] MEDS: SODIUM CHLORIDE 0.9% FLUSH 10 ML IV (09:49)
--- NOTE | 2021-06-27 13:35 | CM.DPC ---
DCP Discharge Home Per MD, pt is medically stable to d/c home today with no identified barriers to discharge. Per PT, pt did well and recommending safe d/c home with family assist and possible HH. Pt continues to decline the need for HH and son is available/retired for assist as needed and family plans to transport pt home later today. Per RN, no identified concerns at this time. Plan: Patient to d/c home via family POV today and no further SW needs at this time. DAYSI Rossi
== END 2021-06-27 14:15 | disposition home or self-care (01) | DRG 177 ==
LOC: ED 04:19 → AC 06:44
PROVIDERS: Internal Medicine; Admitting Provider Nurse Practitioner Family; Emergency Provider Emergency Medicine; PCP Internal Medicine; Referring Provider Emergency Medicine; Visit Provider Nurse Practitioner Family
DX: U07.1 COVID-19 (principal); J96.21 Acute and chronic respiratory failure with hypoxia; J12.82 Pneumonia due to coronavirus disease 2019; J15.1 Pneumonia due to Pseudomonas; J44.1 Chronic obstructive pulmonary disease with (acute) exacerbation; J98.8 Other specified respiratory disorders; I48.0 Paroxysmal atrial fibrillation; E78.5 Hyperlipidemia, unspecified; D64.89 Other specified anemias; I10 Essential (primary) hypertension; Z99.81 Dependence on supplemental oxygen; Z87.891 Personal history of nicotine dependence
CPT/HCPCS: 36415; 71045; 71260; 74177; 76705; 80048; 80053; 81001; 83615; 83735; 84145; 85014; 85018; 85025; 85610; 85651; 86140; 86850; 86900; 86901; 87070; 87077; 87086; 87186; 87205; 87635; 93005; 94640; 94760; 94762; 96365; 96367; 96375; 97162; 97530; 99285; C9803; C9113; J0696; J1100; J1650; J1956; J7613; Q9967

== ENCOUNTER 2021-07-01 19:06 | Inpatient (IN) | payer MEDICARE, OTHER, SELFPAY ==
[2021-06-24 11:00] VITALS: BMI 22.3
[2021-07-01] VITALS (11 sets, daily range): BP systolic 99–115; BP diastolic 54–80; PULSE 58–114; RESP 15–28; TEMP 36.8; O2SAT 90–100; BMI 24.0; BMI 23.4
--- NOTE | 2021-07-01 19:03 | ED.GENADULT ---
HPI - General Adult General Chief complaint: GI Bleed Stated complaint: Dizzy, black stools Time Seen by Provider: 07/01/21 19:10 History of Present Illness HPI narrative: 75-year-old woman with a history of a emphysema, chronic respiratory failure on 4 L of oxygen at home, atrial fibrillation with anticoagulation on apixaban, hypertension, hyperlipidemia, Parkinson's disease, who was admitted to the hospital from June 24 to June 27 with COVID infection, Pseudomonas pneumonia, acute COPD exacerbation and acute on chronic hypoxemic respiratory failure. She was doing relatively well for the 1st 2 days at home but over the last 2 days she has been increasingly weak to the point where she is having difficulty standing. From a respiratory standpoint she does not complain of worsening respiratory symptoms, is still on 4 L of oxygen that she was discharged home with(previous oxygen baseline had been 3 L). She notes black stool but has also been taking iron and using Pepto-Bismol. Her son brings her in for further evaluation and concerned that she is having GI bleeding. Related Data Home Medications Medication Instructions Recorded Confirmed albuterol sulfate 90 mcg/actuation 90 mcg INHALATION PRN PRN 11/07/20 06/24/21 aerosol inhaler (ProAir HFA) atorvastatin 20 mg tablet 20 mg PO DAILY 11/07/20 06/24/21 citalopram 20 mg tablet 20 mg PO DAILY 11/07/20 06/24/21 diltiazem HCl 120 mg 120 mg PO DAILY 11/07/20 06/24/21 capsule,extended release 24 hr fluticasone propionate 50 50 mcg INTRANASAL BID 11/07/20 06/24/21 mcg/actuation nasal spray,suspension gabapentin 300 mg capsule 300 mg PO TID 11/07/20 06/24/21 hydrocodone 7.5 mg-acetaminophen 1 tab PO QID 11/07/20 06/24/21 325 mg tablet ibandronate 150 mg tablet 150 mg PO Q1-2M 11/07/20 06/24/21 montelukast 10 mg tablet 10 mg PO DAILY 11/07/20 06/24/21 cyclobenzaprine 10 mg tablet 10 mg TID 12/03/20 06/24/21 levalbuterol HCl 1.25 mg/3 mL 1.25 mg INHALATION DAILY 02/02/21 06/24/21 solution for nebulization carbidopa 25 mg-levodopa 100 mg 1 tab PO BEDTIME 02/23/21 06/24/21 tablet fluticasone 250 mcg-salmeterol 50 1 inh INHALATION BID 02/23/21 06/24/21 mcg/dose blistr powdr for inhalation (Advair Diskus) hydrochlorothiazide 12.5 mg capsule 12.5 mg PO DAILY 02/23/21 06/24/21 ferrous sulfate 325 mg (65 mg 325 mg PO DAILY 06/24/21 06/24/21 iron) tablet Previous Rx's Medication Instructions Recorded levofloxacin 750 mg tablet 750 mg PO DAILY #3 tab 06/27/21 prednisone 50 mg tablet 50 mg PO DAILY #3 tab 06/27/21 Allergies Allergy/AdvReac Type Severity Reaction Status Date / Time No Known Drug Allergies Allergy Verified 07/01/21 19:15 Review of Systems Review of Systems Narrative: Remainder of complete review of systems is otherwise unremarkable except for that included in the HPI. Patient History Medical History (Updated 07/01/21 @ 22:08 by Rosa Montaño MD) Atrial fibrillation COPD (chronic obstructive pulmonary disease) COVID Hyperlipidemia Hypertension Joint pain Kidney stones Trigger finger Surgical History History of hip replacement History of nephrolithotomy with removal of calculi Family History Mother Coronary artery disease Sister Heart problem Social History marital status: household members: family housing: house Smoking Status: Former smoker alcohol intake: former Exam Initial Vital Signs Initial Vital Signs: Vital Signs Pulse Rate 103 H 07/01/21 19:10 Blood Pressure 107/58 L 07/01/21 19:10 Pulse Oximetry 98 07/01/21 19:10 General: Frail, chronically ill-appearing able to participate with exam, mild dyspnea but able to speak in full sentences on 4 L HEENT: Moist mucous membranes, normal sclera with reactive pupils, Neck: No JVD, supple Respiratory: Lungs scattered wheezing, scattered rhonchi, Full and symmetrical air movement Cardiac: Irregular, rate controlled, no significant murmurs appreciated Abdomen: Soft, nontender, good bowel tones, no flank pain Skin: Pale, Warm and dry, no rashes Rectal exam: External hemorrhoidal tags, black stool that is guaiac negative Neurologic: Globally weak but Grossly neurologically intact with no obvious asymmetries or abnormalities Extremities: No trauma, well perfused Psych: Cooperative, appropriate insight and affect Course Orders Ordered: ED Orders 07/01/21 19:20 XR chest 1V Stat 07/01/21 19:21 EKG-12 Lead Stat 07/01/21 19:30 Respiratory Panel (Film Array) Stat 07/01/21 19:45 Complete Blood Count AUTO DIFF Stat D Dimer Stat 07/01/21 20:00 Blood Culture Stat Comprehensive Metabolic Panel Stat Lactate (Lactic Acid) Stat Lipase Stat Magnesium Stat NT-proBNP (BNP-Adult 18+) Stat Procalcitonin Stat Troponin I Stat Type and Screen Stat 07/01/21 20:05 Urinalysis and Microscopic Stat Urine Culture Stat POTASSIUM CHLORIDE IN WATER (Potassium Cl 10 Meq/100 Ml Li) 10 meq in 100 mls @ 100 mls/hr IV Q1H DAVID Stop: 07/02/21 02:14 Sodium Chloride (Normal Saline 0.9%) 1,000 mls @ 150 mls/hr IV CONT DAVID Sodium Chloride (Normal Saline 0.9%) 500 mls @ 1,000 mls/hr IV BOLUS ONE Stop: 07/01/21 22:32 Discontinued Medications Hydrocodone Bitart/Acetaminophen (Hydrocodone/Acet 10/325 Tablet) 1 tab PO NOW ONE Stop: 07/01/21 22:04 Hydrocodone Bitart/Acetaminophen (Hydrocodone/Acet 5/325 Tablet) 2 tab PO NOW ONE Stop: 07/01/21 22:06 Potassium Chloride (Potassium Chloride 20 Meq Tab) 40 meq PO NOW ONE Stop: 07/01/21 22:04 Vital Signs Vital signs: Vital Signs - 8 hr 07/01/21 19:10 07/01/21 19:12 07/01/21 19:30 Temperature 98.2 F Pulse Rate 103 H 114 H 101 H Respiratory Rate 22 17 Blood Pressure 107/58 L 107/58 L 110/58 L Pulse Oximetry 98 97 100 07/01/21 20:00 07/01/21 20:30 07/01/21 21:00 Temperature Pulse Rate 95 H 109 H 104 H Respiratory Rate 15 24 23 Blood Pressure 109/63 110/56 L 105/80 Pulse Oximetry 100 100 100 07/01/21 21:30 07/01/21 22:00 07/01/21 22:01 Temperature Pulse Rate 101 H 108 H 96 H Respiratory Rate 28 H 27 H 24 Blood Pressure 115/72 Pulse Oximetry 95 94 07/01/21 22:02 Temperature Pulse Rate 98 H Respiratory Rate 28 H Blood Pressure 99/58 L Pulse Oximetry 94 Medical Decision Making Lab Data Result diagrams: 07/01/21 19:45 07/01/21 20:00 Labs: Lab Results 07/01/21 07/01/21 07/01/21 Range/Units 19:30 19:45 19:45 WBC 7.7 (4.5-11.0) X10^3/uL RBC 3.62 L (4.0-5.2) X10^6/uL Hgb 10.6 L (12.0-16.0) g/dL Hct 32.1 L (36-46) % MCV 88.6 (80-100) fL MCH 29.3 (26-34) PG MCHC 33.1 (30-36) % RDW 13.6 (11.6-14.8) % Plt Count 209 (150-400) X10^3/uL Neut % (Auto) 88.2 H (50-75) % Lymph % (Auto) 5.2 L (25-40) % [place] % (Auto) 6.5 (3-14) % Eos % (Auto) 0.1 L (2-4) % Baso % (Auto) 0.0 (0-2) % Neut # (Auto) 6800 (3223-4133) /uL Lymph # (Auto) 400 L (2854-3338) /uL [place] # (Auto) 500 (0-900) /uL Eos # (Auto) 0 (0-450) /uL Baso # (Auto) 0 (0-100) /uL D-Dimer 227 (<230) ng/mL Sodium (137-145) mmol/L Potassium (3.4-5.1) mmol/L Chloride (98-107) mmol/L Carbon Dioxide (22-32) mmol/L BUN (7-17) mg/dL Creatinine (0.52-1.04) mg/dL Estimated GFR (>60) mL/min BUN/Creatinine Ratio (6-22) Glucose (80-110) mg/dL Lactate (0.7-2.1) mmol/L Calcium (8.4-10.2) mg/dL Magnesium (1.6-2.3) mg/dL Total Bilirubin (0.2-1.3) mg/dL AST (14-36) IU/L ALT (<35) IU/L Alkaline Phosphatase (38-126) U/L Troponin I (0.01-0.034) ng/mL NT-Pro-B Natriuret Pep (<450) pg/mL Total Protein (6.3-8.2) g/dL Albumin (3.5-5.0) g/dL Globulin (1.7-4.1) g/dL Albumin/Globulin Ratio (1.0-2.8) Lipase (23-300) U/L Procalcitonin (<0.5) ng/mL Urine Color Urine Appearance Urine pH (4.5-8.0) Ur Specific [place] (1.000-1.035) Urine Protein (Negative) Urine Glucose (UA) (Negative) g/dL Urine Ketones (NEGATIVE) Urine Occult Blood (Negative) Urine Nitrate (Negative) Urine Bilirubin (NEGATIVE) Urine Urobilinogen (0.2) E.U./dL Ur Leukocyte Esterase (NEGATIVE) Urine RBC (0-5/HPF) Urine WBC (0-5/HPF) Ur Squamous Epith Cells (0-5/HPF) Amorphous Sediment Urine Bacteria (None) Granular Casts (None) Ur Culture Indicated? Chlamy pneumoniae PCR Not detected (Not Detect) Adenovirus (PCR) Not detected (Not Detect) B. pertussis DNA (PCR) Not detected (Not Detecte) B.parapertussis DNA PCR Not detected (Not Detecte) Coronavirus OC43 (PCR) Not detected (Not Detect) Coronavirus HKU1 (PCR) Not detected (Not Detect) Coronavirus 229E (PCR) Not detected (Not Detect) SARS-CoV-2 (PCR) Detected H (Not Detecte) Coronavirus NL63 (PCR) Not detected (Not Detect) Human Metapneumovir PCR Not detected (Not Detect) Influenza Type A (PCR) Not detected (Not Detect) Influenza Type B (PCR) Not detected (Not Detect) M. pneumoniae (PCR) Not detected (Not Detect) Parainfluenza 1 (PCR) Not detected (Not Detect) Parainfluenza 2 (PCR) Not detected (Not Detect) Parainfluenza 3 (PCR) Not detected (Not Detect) Parainfluenza 4 (PCR) Not detected (Not Detect) RSV (PCR) Not detected (Not Detect) Entero/Rhino (PCR) Not detected (Not Detect) Blood Type Antibody Screen 07/01/21 07/01/21 07/01/21 Range/Units 20:00 20:00 20:00 WBC (4.5-11.0) X10^3/uL RBC (4.0-5.2) X10^6/uL Hgb (12.0-16.0) g/dL Hct (36-46) % MCV (80-100) fL MCH (26-34) PG MCHC (30-36) % RDW (11.6-14.8) % Plt Count (150-400) X10^3/uL Neut % (Auto) (50-75) % Lymph % (Auto) (25-40) % [place] % (Auto) (3-14) % Eos % (Auto) (2-4) % Baso % (Auto) (0-2) % Neut # (Auto) (4747-3507) /uL Lymph # (Auto) (2723-3483) /uL [place] # (Auto) (0-900) /uL Eos # (Auto) (0-450) /uL Baso # (Auto) (0-100) /uL D-Dimer (<230) ng/mL Sodium 125 L (137-145) mmol/L Potassium 2.6 L* (3.4-5.1) mmol/L Chloride 84 L (98-107) mmol/L Carbon Dioxide 34 H (22-32) mmol/L BUN 22 H (7-17) mg/dL Creatinine 1.48 H (0.52-1.04) mg/dL Estimated GFR 34.2 L (>60) mL/min BUN/Creatinine Ratio 14.9 (6-22) Glucose 128 H (80-110) mg/dL Lactate 1.7 (0.7-2.1) mmol/L Calcium 8.5 (8.4-10.2) mg/dL Magnesium 1.9 (1.6-2.3) mg/dL Total Bilirubin 0.4 (0.2-1.3) mg/dL AST 22 (14-36) IU/L ALT 9 (<35) IU/L Alkaline Phosphatase 50 (38-126) U/L Troponin I 0.019 (0.01-0.034) ng/mL NT-Pro-B Natriuret Pep 1170 H (<450) pg/mL Total Protein 6.6 (6.3-8.2) g/dL Albumin 3.6 (3.5-5.0) g/dL Globulin 3.0 (1.7-4.1) g/dL Albumin/Globulin Ratio 1.2 (1.0-2.8) Lipase 28 (23-300) U/L Procalcitonin 0.26 (<0.5) ng/mL Urine Color Urine Appearance Urine pH (4.5-8.0) Ur Specific [place] (1.000-1.035) Urine Protein (Negative) Urine Glucose (UA) (Negative) g/dL Urine Ketones (NEGATIVE) Urine Occult Blood (Negative) Urine Nitrate (Negative) Urine Bilirubin (NEGATIVE) Urine Urobilinogen (0.2) E.U./dL Ur Leukocyte Esterase (NEGATIVE) Urine RBC (0-5/HPF) Urine WBC (0-5/HPF) Ur Squamous Epith Cells (0-5/HPF) Amorphous Sediment Urine Bacteria (None) Granular Casts (None) Ur Culture Indicated? Chlamy pneumoniae PCR (Not Detect) Adenovirus (PCR) (Not Detect) B. pertussis DNA (PCR) (Not Detecte) B.parapertussis DNA PCR (Not Detecte) Coronavirus OC43 (PCR) (Not Detect) Coronavirus HKU1 (PCR) (Not Detect) Coronavirus 229E (PCR) (Not Detect) SARS-CoV-2 (PCR) (Not Detecte) Coronavirus NL63 (PCR) (Not Detect) Human Metapneumovir PCR (Not Detect) Influenza Type A (PCR) (Not Detect) Influenza Type B (PCR) (Not Detect) M. pneumoniae (PCR) (Not Detect) Parainfluenza 1 (PCR) (Not Detect) Parainfluenza 2 (PCR) (Not Detect) Parainfluenza 3 (PCR) (Not Detect) Parainfluenza 4 (PCR) (Not Detect) RSV (PCR) (Not Detect) Entero/Rhino (PCR) (Not Detect) Blood Type A Negative Antibody Screen Negative 07/01/21 Range/Units 20:05 WBC (4.5-11.0) X10^3/uL RBC (4.0-5.2) X10^6/uL Hgb (12.0-16.0) g/dL Hct (36-46) % MCV (80-100) fL MCH (26-34) PG MCHC (30-36) % RDW (11.6-14.8) % Plt Count (150-400) X10^3/uL Neut % (Auto) (50-75) % Lymph % (Auto) (25-40) % [place] % (Auto) (3-14) % Eos % (Auto) (2-4) % Baso % (Auto) (0-2) % Neut # (Auto) (3355-6920) /uL Lymph # (Auto) (2408-3412) /uL [place] # (Auto) (0-900) /uL Eos # (Auto) (0-450) /uL Baso # (Auto) (0-100) /uL D-Dimer (<230) ng/mL Sodium (137-145) mmol/L Potassium (3.4-5.1) mmol/L Chloride (98-107) mmol/L Carbon Dioxide (22-32) mmol/L BUN (7-17) mg/dL Creatinine (0.52-1.04) mg/dL Estimated GFR (>60) mL/min BUN/Creatinine Ratio (6-22) Glucose (80-110) mg/dL Lactate (0.7-2.1) mmol/L Calcium (8.4-10.2) mg/dL Magnesium (1.6-2.3) mg/dL Total Bilirubin (0.2-1.3) mg/dL AST (14-36) IU/L ALT (<35) IU/L Alkaline Phosphatase (38-126) U/L Troponin I (0.01-0.034) ng/mL NT-Pro-B Natriuret Pep (<450) pg/mL Total Protein (6.3-8.2) g/dL Albumin (3.5-5.0) g/dL Globulin (1.7-4.1) g/dL Albumin/Globulin Ratio (1.0-2.8) Lipase (23-300) U/L Procalcitonin (<0.5) ng/mL Urine Color Yellow Urine Appearance Clear Urine pH 5.0 (4.5-8.0) Ur Specific [place] 1.025 (1.000-1.035) Urine Protein Trace H (Negative) Urine Glucose (UA) Negative (Negative) g/dL Urine Ketones Negative (NEGATIVE) Urine Occult Blood Negative (Negative) Urine Nitrate Negative (Negative) Urine Bilirubin Negative (NEGATIVE) Urine Urobilinogen 0.2 (0.2) E.U./dL Ur Leukocyte Esterase Trace H (NEGATIVE) Urine RBC None seen (0-5/HPF) Urine WBC 0-1/hpf (0-5/HPF) Ur Squamous Epith Cells 0-1 /hpf (0-5/HPF) Amorphous Sediment 2+ Urine Bacteria Occasional (0-1) (None) Granular Casts 0-1/lpf (None) Ur Culture Indicated? Specimen cultured Chlamy pneumoniae PCR (Not Detect) Adenovirus (PCR) (Not Detect) B. pertussis DNA (PCR) (Not Detecte) B.parapertussis DNA PCR (Not Detecte) Coronavirus OC43 (PCR) (Not Detect) Coronavirus HKU1 (PCR) (Not Detect) Coronavirus 229E (PCR) (Not Detect) SARS-CoV-2 (PCR) (Not Detecte) Coronavirus NL63 (PCR) (Not Detect) Human Metapneumovir PCR (Not Detect) Influenza Type A (PCR) (Not Detect) Influenza Type B (PCR) (Not Detect) M. pneumoniae (PCR) (Not Detect) Parainfluenza 1 (PCR) (Not Detect) Parainfluenza 2 (PCR) (Not Detect) Parainfluenza 3 (PCR) (Not Detect) Parainfluenza 4 (PCR) (Not Detect) RSV (PCR) (Not Detect) Entero/Rhino (PCR) (Not Detect) Blood Type Antibody Screen Imaging Data Chest x-ray: Radiologist's Impression: FINDINGS:? ? Surgical changes and devices:? None.? ? Lungs and pleura:? There is hyperinflation of the lungs with flattening of the hemidiaphragms compatible with COPD.? There are confluent reticular interstitial opacities within the left lung base which appears increased in prominence.? Linear areas of scarring are redemonstrated bilaterally.? No pleural effusions or pneumothorax.? ? Mediastinum:? Mediastinal contours appear unchanged.? Heart size is normal.? ? Bones and chest wall:? No suspicious bony lesions.? Overlying soft tissues appear unremarkable.? ? IMPRESSION:? ? 1. Increased confluent reticular interstitial opacities in the left lung base suggestive of pneumonia given clinical history.? ? 2. Findings compatible with COPD redemonstrated.? ? Dictated by: Robert Ulrich M.D. on 07/01/2021 at 20:22 ?? ECG Data Interpretation: Atrial fibrillation at a rate of 99 No acute ischemic changes MDM Narrative Medical decision making narrative: 75-year-old woman with recent hospital discharge with increasing weakness over the last 2 days and black stools with concern for upper GI bleed. The stool is guaiac negative and her H&H is minimally changed. Discharge was 10.8 and 33.0 on June 27 and today's 10.6 and 32.1. Chemistries are notable for sodium of 125 and a potassium at 2.6 with renal insufficiency at 1.48 which is a jump from 0.75 on the . Troponin is unremarkable, BNP is minimally elevated. Did complete 3 additional days of levofloxacin as well as 50 mg of prednisone as prescribed on discharge. At this time, I believe that her overall weakness is from her metabolic abnormalities with hypokalemia, hyponatremia complicated with intravascular dehydration and minor acute kidney injury. Will recommend hospitalization for weakness electrolyte abnormalities as well as monitoring her H&H and stools to see if she in fact is having additional GI bleeding. Care is reviewed with the hospitalist service and patient will be admitted. Discharge Plan Departure Patient Disposition: Home Clinical Impression: Acute hypokalemia, Acute hyponatremia, Acute kidney failure Prescriptions: No Action cyclobenzaprine 10 mg tablet 10 mg TID 0RF atorvastatin 20 mg tablet 20 mg PO DAILY 0RF citalopram 20 mg tablet 20 mg PO DAILY 0RF hydrocodone-acetaminophen 7.5-325 mg tablet 1 tab PO QID 0RF Label Comments: TAKE 1 TABLET BY MOUTH EVERY 4 TO 6 HOURS NEEDED gabapentin 300 mg capsule 300 mg PO TID 0RF diltiazem HCl 120 mg capsule,extended release 24hr 120 mg PO DAILY 0RF montelukast 10 mg tablet 10 mg PO DAILY 0RF albuterol sulfate [ProAir HFA] 90 mcg/actuation HFA aerosol inhaler 90 mcg INHALATION PRN PRN (Reason: Bronchodilation) 0RF fluticasone propionate 50 mcg/actuation spray,suspension 50 mcg INTRANASAL BID 0RF ibandronate 150 mg tablet 150 mg PO Q1-2M 0RF levalbuterol HCl 1.25 mg/3 mL Solution For Nebulization 1.25 mg INHALATION DAILY 0RF fluticasone propion-salmeterol [Advair Diskus] 250-50 mcg/dose Blister With Device 1 inh INHALATION BID 0RF hydrochlorothiazide 12.5 mg Capsule 12.5 mg PO DAILY 0RF carbidopa-levodopa 25-100 mg Tablet 1 tab PO BEDTIME 0RF ferrous sulfate 325 mg (65 mg iron) Tablet 325 mg PO DAILY 0RF levofloxacin 750 mg tablet 750 mg PO DAILY Qty: 3 0RF prednisone 50 mg tablet 50 mg PO DAILY Qty: 3 0RF Referrals: Citlali Wei MD [Primary Care Provider] -
--- NOTE | 2021-07-01 19:20 | DI.RAD.S_ITS ---
PROCEDURE: XR CHEST 1V INDICATIONS: cough, weakness TECHNIQUE: One view of the chest was acquired. COMPARISON: [facility], CR, XR CHEST 1 VIEW, 08/25/2020, 11:14. [facility], CR, XR CHEST 1V, 06/24/2021, 5:04. FINDINGS: Surgical changes and devices: None. Lungs and pleura: There is hyperinflation of the lungs with flattening of the hemidiaphragms compatible with COPD. There are confluent reticular interstitial opacities within the left lung base which appears increased in prominence. Linear areas of scarring are redemonstrated bilaterally. No pleural effusions or pneumothorax. Mediastinum: Mediastinal contours appear unchanged. Heart size is normal. Bones and chest wall: No suspicious bony lesions. Overlying soft tissues appear unremarkable. IMPRESSION: 1. Increased confluent reticular interstitial opacities in the left lung base suggestive of pneumonia given clinical history. 2. Findings compatible with COPD redemonstrated. Dictated by: Robert Ulrich M.D. on 07/01/2021 at 20:22 Approved by: Robert Ulrich M.D. on 07/01/2021 at 20:24
--- NOTE | 2021-07-01 20:00 | PC.NURSE ---
Guiac negative, stools dark, pt takes Iron
[2021-07-01 20:11] LABS: Add Manual Diff / Slide Review NO; Basophils Absolute Auto 0 /uL (0-100); Eosinophils Absolute Auto 0 /uL (0-450); Eosinophils Percent Auto 0.1 % (2-4); Hematocrit 32.1 % (36-46); Hemoglobin 10.6 g/dL (12.0-16.0); Lymphocytes Absolute Auto 400 /uL (1100-4500); Lymphocytes Percent Auto 5.2 % (25-40); Mean Corpuscular HGB Conc 33.1 % (30-36); Mean Corpuscular Hemoglobin 29.3 PG (26-34); Mean Corpuscular Volume 88.6 fL (80-100); Monocytes Absolute Auto 500 /uL (0-900); Monocytes Percent Auto 6.5 % (3-14); Neutrophils Absolute Auto 6800 /uL (1500-7000); Neutrophils Percent Auto 88.2 % (50-75); Platelet Count 209 X10^3/uL (150-400); Red Blood Cell Count 3.62 X10^6/uL (4.0-5.2); Red Cell Distribution Width 13.6 % (11.6-14.8); White Blood Cell Count 7.7 X10^3/uL (4.5-11.0)
[2021-07-01 20:27] LABS: D Dimer 227 ng/mL (<230)
[2021-07-01 20:28] LABS: Lactate (Lactic Acid) 1.7 mmol/L (0.7-2.1)
[2021-07-01 20:29] LABS: Alanine Aminotransferase 9 IU/L (<35); Albumin 3.6 g/dL (3.5-5.0); Albumin Globulin Ratio 1.2 (1.0-2.8); Alkaline Phosphatase 50 U/L (38-126); Aspartate Aminotransferase 22 IU/L (14-36); BUN Creatinine Ratio 14.9 (6-22); Bilirubin Total 0.4 mg/dL (0.2-1.3); Blood Urea Nitrogen 22 mg/dL (7-17); Calcium 8.5 mg/dL (8.4-10.2); Carbon Dioxide 34 mmol/L (22-32); Chloride 84 mmol/L (98-107); Estimated Glomerular Filt Rate 34.2 mL/min (>60); Glucose 128 mg/dL (80-110); HEMOLYSIS < 15 (0-50); Lipase 28 U/L (23-300); Magnesium 1.9 mg/dL (1.6-2.3); Sodium 125 mmol/L (137-145); Total Protein 6.6 g/dL (6.3-8.2)
[2021-07-01 20:41] LABS: NT-proBNP (BNP-Adult 18+) 1170 pg/mL (<450); Troponin I 0.019 ng/mL (0.01-0.034)
[2021-07-01 20:43] LABS: Potassium 2.6 mmol/L (3.4-5.1)
[2021-07-01 20:45] LABS: Procalcitonin 0.26 ng/mL (<0.5)
[2021-07-01 21:13] LABS: Appearance Urine UA CLEAR; Bilirubin Urine UA NEGATIVE (NEGATIVE); Color Urine UA YELLOW; Glucose Urine UA NEGATIVE (Negative); Ketones Urine UA NEGATIVE (NEGATIVE); Leukocyte Esterase Urine UA TRACE (NEGATIVE); Nitrite Urine UA NEGATIVE (Negative); Occult Blood Urine UA NEGATIVE (Negative); Protein Urine UA TRACE (Negative); Specific Gravity Urine UA 1.025 (1.000-1.035); Urobilinogen Urine UA 0.2 E.U./dL (0.2)
[2021-07-01 21:14] LABS: Amorphous Sediment Urine 2+; Bacteria Urine Occasional (0-1); Culture Indicated Urine Specimen Cultured; Granular Casts Urine 0-1/LPF; RBC Urine None Seen (0-5/HPF); Squamous Epithelial Cell Urine 0-1 /HPF (0-5/HPF); WBC Urine 0-1/HPF (0-5/HPF)
[2021-07-01 21:49] LABS: Adenovirus Not Detected (Not Detect)
[2021-07-01 21:51] LABS: B. parapertussis Not Detected (Not Detecte); Bordetella pertussis Not Detected (Not Detecte); Chlamydophila pneumoniae Not Detected (Not Detect); Coronavirus 229E Not Detected (Not Detect); Coronavirus HKU1 Not Detected (Not Detect); Coronavirus NL 63 Not Detected (Not Detect); Coronavirus OC43 Not Detected (Not Detect); Human Metapneumovirus Not Detected (Not Detect); Human Rhinovirus/Enterovirus Not Detected (Not Detect); Influenza A Not Detected (Not Detect); Influenza B Not Detected (Not Detect); Mycoplasma pneumoniae Not Detected (Not Detect); Parainfluenza Virus 1 Not Detected (Not Detect); Parainfluenza Virus 2 Not Detected (Not Detect); Parainfluenza Virus 3 Not Detected (Not Detect); Parainfluenza Virus 4 Not Detected (Not Detect); Respiratory Syncytial Virus Not Detected (Not Detect)
--- NOTE | 2021-07-01 21:51 | PC.NURSE ---
PT straight cathed for urine at 1999, pericare performed, saturated brief removed and clean one placed.
[2021-07-01 21:52] LABS: SARS- CoV-2 Detected (Not Detecte)
[2021-07-01] MEDS: POTASSIUM CHLORIDE 20 MEQ TAB 40 MEQ PO (22:10)
[2021-07-01] MEDS: SODIUM CHLORIDE 0.9% 500 ML 1000 ML IV (22:10)
[2021-07-01] MEDS: HYDROCODONE/ACET 5/325 TABLET 2 TAB PO (22:11)
--- NOTE | 2021-07-01 22:27 | P.HP_ITS ---
History of Present Illness History of Present Illness Date Patient Seen: 07/01/21 Time Patient Seen: 23:00 Chief complaint: Dizzy, black stools Narrative: Ms. House is a 75W with PMH COPD on oxygen 3-5L at home, atrial fibrillation, Parkinson's, HTN, HL, previous GI bleeding and recent admission to the hospital for COVID and pseudomonas infection and COPD exacerbation who presents to the hospital with weakness. She was discharged on 06/27 after treatment with steroids for COPD exacerbation and discharged with levofloxacin for Pseudomonas infection. Per ED note she has not noted any changes to her respiratory status, and to me she appears largely unchanged from prior discharge, but she is complaining of mild shortness of breath, but it is difficult to understand if this is worse than her chronic shortness of breath. She has no fevers/chills, no chest pain, no phlegm production. She actually returns to the hospital feeling weak and dizzy and having difficulty ambulating. She feels globally fatigued. She has had poor appetite since discharge, had episodes of diarrhea, and continued to take her HCTZ at home. She noted black stools but takes iron and pepto-bismol, she had guaiac negative stools last admission. In the ED workup was done, vitals notable for being afebrile, tachycardic in 110s, blood pressure 100s/50s. Labs notable for WBC 7.7, hgb 10.6, Na 125, k 2.6, BUN 22, creatinine 1.48. She remained COVID positive. Stools were guaiac negative. UA showed trace leuk esterase. Chest xray showed increased retricular opacities in the left lung. She was admitted for further treatment. Patient History Medical History Atrial fibrillation COPD (chronic obstructive pulmonary disease) COVID Hyperlipidemia Hypertension Joint pain Kidney stones Trigger finger Surgical History History of hip replacement History of nephrolithotomy with removal of calculi Family & Social History Family History Mother Coronary artery disease Sister Heart problem Social History: household members family Prior Living Arrangements House Safety & Behavioral: Feels Safe in Current Yes Environment Been Physically Hurt or No Threatened By a Person Suicidal Ideation Description None Suicide Plan Description No Plan Tobacco & Substance use: Smoking Status Former smoker alcohol intake former alcohol intake frequency 0-2 drinks per day Substance Use Type does not use Meds Home Medications and Allergies Home Medications Medication Instructions Recorded Confirmed Type albuterol sulfate 90 mcg/actuation 90 mcg INHALATION PRN PRN 11/07/20 07/01/21 History aerosol inhaler (ProAir HFA) atorvastatin 20 mg tablet 20 mg PO DAILY 11/07/20 07/01/21 History citalopram 20 mg tablet 20 mg PO DAILY 11/07/20 07/01/21 History diltiazem HCl 120 mg 120 mg PO DAILY 11/07/20 06/24/21 History capsule,extended release 24 hr fluticasone propionate 50 50 mcg INTRANASAL BID 11/07/20 07/01/21 History mcg/actuation nasal spray,suspension gabapentin 300 mg capsule 300 mg PO TID 11/07/20 07/01/21 History hydrocodone 7.5 mg-acetaminophen 1 tab PO Q4HR PRN 11/07/20 07/01/21 History 325 mg tablet ibandronate 150 mg tablet 150 mg PO USEASDIRECTD 11/07/20 07/01/21 History montelukast 10 mg tablet 10 mg PO DAILY 11/07/20 07/01/21 History levalbuterol HCl 1.25 mg/3 mL 1.25 mg INHALATION QID 02/02/21 07/01/21 History solution for nebulization carbidopa 25 mg-levodopa 100 mg 1 tab PO BEDTIME 02/23/21 07/01/21 History tablet fluticasone 250 mcg-salmeterol 50 1 inh INHALATION BID 02/23/21 07/01/21 History mcg/dose blistr powdr for inhalation (Advair Diskus) hydrochlorothiazide 12.5 mg capsule 12.5 mg PO DAILY 02/23/21 07/01/21 History Allergies Allergy/AdvReac Type Severity Reaction Status Date / Time No Known Drug Allergies Allergy Verified 07/01/21 19:15 Review of Systems Review of Systems Narrative: 14 systems reviewed and negative aside from what is noted in HPI Exam Vital Signs (past 8 hours): - 07/01/21 20:30 07/01/21 21:00 07/01/21 21:30 Temperature Pulse Rate 109 H 104 H 101 H Respiratory Rate 24 23 28 H Blood Pressure 110/56 L 105/80 115/72 Pulse Oximetry 100 100 95 07/01/21 22:00 07/01/21 22:01 07/01/21 22:02 Temperature Pulse Rate 108 H 96 H 98 H Respiratory Rate 27 H 24 28 H Blood Pressure 99/58 L Pulse Oximetry 94 94 07/01/21 22:30 Temperature 98.3 F Pulse Rate 58 L Respiratory Rate 16 Blood Pressure 103/54 L Pulse Oximetry 90 L Oxygen Delivery Method Nasal Cannula Oxygen Flow Rate 5 Narrative Exam Narrative: GEN: chronically ill appearing, frail woman in no acute distress HEENT: dry mucous membranes, PERRL NECK: trachea midline, no JVD CV: regular with no murmurs PULM: faint wheezes bilaterally ABD: soft, nontender, nondistended, no organomegaly, normal bowel sounds EXT: warm and well perfused with no edema NEURO: awake, alert, oriented, with no focal deficits Objective Labs Result Diagrams: 07/02/21 03:25 07/02/21 03:25 Labs: Laboratory Results - last 24 hr 07/01/21 07/01/21 07/01/21 19:30 19:45 19:45 WBC 7.7 RBC 3.62 L Hgb 10.6 L Hct 32.1 L MCV 88.6 MCH 29.3 MCHC 33.1 RDW 13.6 Plt Count 209 Neut % (Auto) 88.2 H Lymph % (Auto) 5.2 L [place] % (Auto) 6.5 Eos % (Auto) 0.1 L Baso % (Auto) 0.0 Neut # (Auto) 6800 Lymph # (Auto) 400 L [place] # (Auto) 500 Eos # (Auto) 0 Baso # (Auto) 0 D-Dimer 227 Sodium Potassium Chloride Carbon Dioxide BUN Creatinine Estimated GFR BUN/Creatinine Ratio Glucose Lactate Calcium Phosphorus Magnesium Total Bilirubin AST ALT Alkaline Phosphatase Troponin I NT-Pro-B Natriuret Pep Total Protein Albumin Globulin Albumin/Globulin Ratio Lipase Procalcitonin Urine Color Urine Appearance Urine pH Ur Specific [place] Urine Protein Urine Glucose (UA) Urine Ketones Urine Occult Blood Urine Nitrate Urine Bilirubin Urine Urobilinogen Ur Leukocyte Esterase Urine RBC Urine WBC Ur Squamous Epith Cells Amorphous Sediment Urine Bacteria Granular Casts Ur Culture Indicated? Chlamy pneumoniae PCR Not detected Adenovirus (PCR) Not detected B. pertussis DNA (PCR) Not detected B.parapertussis DNA PCR Not detected Coronavirus OC43 (PCR) Not detected Coronavirus HKU1 (PCR) Not detected Coronavirus 229E (PCR) Not detected SARS-CoV-2 (PCR) Detected H Coronavirus NL63 (PCR) Not detected Human Metapneumovir PCR Not detected Influenza Type A (PCR) Not detected Influenza Type B (PCR) Not detected M. pneumoniae (PCR) Not detected Parainfluenza 1 (PCR) Not detected Parainfluenza 2 (PCR) Not detected Parainfluenza 3 (PCR) Not detected Parainfluenza 4 (PCR) Not detected RSV (PCR) Not detected Entero/Rhino (PCR) Not detected Blood Type Antibody Screen 07/01/21 07/01/21 07/01/21 20:00 20:00 20:00 WBC RBC Hgb Hct MCV MCH MCHC RDW Plt Count Neut % (Auto) Lymph % (Auto) [place] % (Auto) Eos % (Auto) Baso % (Auto) Neut # (Auto) Lymph # (Auto) [place] # (Auto) Eos # (Auto) Baso # (Auto) D-Dimer Sodium 125 L Potassium 2.6 L* Chloride 84 L Carbon Dioxide 34 H BUN 22 H Creatinine 1.48 H Estimated GFR 34.2 L BUN/Creatinine Ratio 14.9 Glucose 128 H Lactate 1.7 Calcium 8.5 Phosphorus Magnesium 1.9 Total Bilirubin 0.4 AST 22 ALT 9 Alkaline Phosphatase 50 Troponin I 0.019 NT-Pro-B Natriuret Pep 1170 H Total Protein 6.6 Albumin 3.6 Globulin 3.0 Albumin/Globulin Ratio 1.2 Lipase 28 Procalcitonin 0.26 Urine Color Urine Appearance Urine pH Ur Specific [place] Urine Protein Urine Glucose (UA) Urine Ketones Urine Occult Blood Urine Nitrate Urine Bilirubin Urine Urobilinogen Ur Leukocyte Esterase Urine RBC Urine WBC Ur Squamous Epith Cells Amorphous Sediment Urine Bacteria Granular Casts Ur Culture Indicated? Chlamy pneumoniae PCR Adenovirus (PCR) B. pertussis DNA (PCR) B.parapertussis DNA PCR Coronavirus OC43 (PCR) Coronavirus HKU1 (PCR) Coronavirus 229E (PCR) SARS-CoV-2 (PCR) Coronavirus NL63 (PCR) Human Metapneumovir PCR Influenza Type A (PCR) Influenza Type B (PCR) M. pneumoniae (PCR) Parainfluenza 1 (PCR) Parainfluenza 2 (PCR) Parainfluenza 3 (PCR) Parainfluenza 4 (PCR) RSV (PCR) Entero/Rhino (PCR) Blood Type A Negative Antibody Screen Negative 07/01/21 07/02/21 07/02/21 20:05 03:25 03:25 WBC 5.8 RBC 3.68 L Hgb 10.8 L Hct 32.8 L MCV 89.0 MCH 29.3 MCHC 32.9 RDW 13.5 Plt Count 203 Neut % (Auto) 87.4 H Lymph % (Auto) 7.1 L [place] % (Auto) 5.2 Eos % (Auto) 0.1 L Baso % (Auto) 0.2 Neut # (Auto) 5100 Lymph # (Auto) 400 L [place] # (Auto) 300 Eos # (Auto) 0 Baso # (Auto) 0 D-Dimer Sodium 128 L Potassium 3.9 D Chloride 91 L Carbon Dioxide 32 BUN 20 H Creatinine 1.02 Estimated GFR 52.5 L BUN/Creatinine Ratio 19.6 Glucose 71 L Lactate Calcium 8.1 L Phosphorus 3.7 Magnesium 1.9 Total Bilirubin AST ALT Alkaline Phosphatase Troponin I NT-Pro-B Natriuret Pep Total Protein Albumin Globulin Albumin/Globulin Ratio Lipase Procalcitonin Urine Color Yellow Urine Appearance Clear Urine pH 5.0 Ur Specific [place] 1.025 Urine Protein Trace H Urine Glucose (UA) Negative Urine Ketones Negative Urine Occult Blood Negative Urine Nitrate Negative Urine Bilirubin Negative Urine Urobilinogen 0.2 Ur Leukocyte Esterase Trace H Urine RBC None seen Urine WBC 0-1/hpf Ur Squamous Epith Cells 0-1 /hpf Amorphous Sediment 2+ Urine Bacteria Occasional (0-1) Granular Casts 0-1/lpf Ur Culture Indicated? Specimen cultured Chlamy pneumoniae PCR Adenovirus (PCR) B. pertussis DNA (PCR) B.parapertussis DNA PCR Coronavirus OC43 (PCR) Coronavirus HKU1 (PCR) Coronavirus 229E (PCR) SARS-CoV-2 (PCR) Coronavirus NL63 (PCR) Human Metapneumovir PCR Influenza Type A (PCR) Influenza Type B (PCR) M. pneumoniae (PCR) Parainfluenza 1 (PCR) Parainfluenza 2 (PCR) Parainfluenza 3 (PCR) Parainfluenza 4 (PCR) RSV (PCR) Entero/Rhino (PCR) Blood Type Antibody Screen Assessment & Plan Assessment & Plan narrative: Ms. House is a 75W with PMH COPD with chronic respiratory failure, HTN, HL, who presents with generalized weakness. 1. Generalized weakness from dehydration, HALIMA, hyponatremia/hypokalemia, acute -suspect this is caused by dehydration from poor appetite from recent illness, along with diarrhea and continued HCTZ use -suspect hyponatremia is hypovolemic -hold HCTZ -continue gentle IV fluids -monitor for diarrhea, if significant check C diff -replete potassium -doubt GI bleed, but monitor hemoglobin 2. Chronic respiratory failure from COPD with recent COVID and pseudomonas infection -patient continues to state feels short of breath, suspect component of chronic shortness of breath -on 3L O2 at rest, 5L with activity chronically -has received steroids and abx for 7 days -chest xray appears slightly worsened from previously -for now continue meropenem for pseudomonas pneumonia, and continue steroids, potentially for slightly longer 10-14 day course 3. Paroxysmal atrial fibrillation -continue diltiazem -no anticoagulation given history of bleeding 4. Chronic iron deficiency anemia -continue home iron CODE: Full Proxy: Michoacano Farfan, son I have utilized all available resources to reconcile the patient's home medications Time Spent With Patient Critical Care time: I spent a total of [] minutes of critical care time on this patient's care today; this time is exclusive of procedural time. Quality VTE Deep Vein Thrombosis/Pulmonary Embolism Present on Admission: No MIPS - Admit I confirm the patient?s Advance Care Plan is present, Code status is documented, Surrogate decision maker is in patient?s record [If Yes, STOP here]: Yes
[2021-07-01] MEDS: POTASSIUM CHLORIDE IN WATER 10 MEQ/100 ML PIGGYBACK 100 MEQ IV (23:12)
[2021-07-01] MEDS: SODIUM CHLORIDE 0.9% 1,000 ML 100 ML IV (23:12)
[2021-07-02] VITALS (9 sets, daily range): BP systolic 92–114; BP diastolic 45–76; PULSE 76–88; RESP 16–24; TEMP 36.3–37.6; O2SAT 92–100
[2021-07-02] MEDS: MEROPENEM 1 GM in SODIUM CHLORIDE 0.9% 100 ML 200 ML IV (00:11)
--- NOTE | 2021-07-02 00:51 | PC.NURSE ---
Pt. admitted to acute care for c/o dizziness and black stools. Pt. is also positive for Covid 19 so special droplet initiated. Pt. is alert and oriented, denies pain but slight shortness of breath with intermittent cough productive of clear sputum. Lungs sounds decreased throughout and on 02 at 4L NC per her home 02. Noted pt's. upper extremities to be tremulous and jerky consistent with Parkinson per her history. Pt. has limited ROM on both upper extremities. Skin otherwise is unremarkable with a small scab/callus on her right 2nd toe and noted also that pt. has a rounded elevated skin on her upper back which she states as a boil long time ago. It is intact and no drainage. Pt. oriented to bed and call light use, bed alarm activated. [address] Campos and clarified the IV potassium rider order which pt. did not tolerate due to burning on the IV site, did not order additional po K+ in place of the IV but will recheck level in am.
[2021-07-02 03:36] LABS: Add Manual Diff / Slide Review NO; Basophils Absolute Auto 0 /uL (0-100); Basophils Percent Auto 0.2 % (0-2); Eosinophils Absolute Auto 0 /uL (0-450); Eosinophils Percent Auto 0.1 % (2-4); Hematocrit 32.8 % (36-46); Hemoglobin 10.8 g/dL (12.0-16.0); Lymphocytes Absolute Auto 400 /uL (1100-4500); Lymphocytes Percent Auto 7.1 % (25-40); Mean Corpuscular HGB Conc 32.9 % (30-36); Mean Corpuscular Hemoglobin 29.3 PG (26-34); Monocytes Absolute Auto 300 /uL (0-900); Monocytes Percent Auto 5.2 % (3-14); Neutrophils Absolute Auto 5100 /uL (1500-7000); Neutrophils Percent Auto 87.4 % (50-75); Platelet Count 203 X10^3/uL (150-400); Red Blood Cell Count 3.68 X10^6/uL (4.0-5.2); Red Cell Distribution Width 13.5 % (11.6-14.8); White Blood Cell Count 5.8 X10^3/uL (4.5-11.0)
[2021-07-02 03:46] LABS: BUN Creatinine Ratio 19.6 (6-22); Blood Urea Nitrogen 20 mg/dL (7-17); Calcium 8.1 mg/dL (8.4-10.2); Carbon Dioxide 32 mmol/L (22-32); Chloride 91 mmol/L (98-107); Estimated Glomerular Filt Rate 52.5 mL/min (>60); Glucose 71 mg/dL (80-110); HEMOLYSIS 28 (0-50); Magnesium 1.9 mg/dL (1.6-2.3); Phosphorous 3.7 mg/dL (2.8-4.1); Potassium 3.9 mmol/L (3.4-5.1); Sodium 128 mmol/L (137-145)
[2021-07-02] MEDS: ACETAMINOPHEN 325 MG TABLET 650 MG PO (04:55)
[2021-07-02] MEDS: GABAPENTIN 300 MG CAPSULE PO ×4 (06:19→20:59)
[2021-07-02] MEDS: HYDROCODONE/ACET EXLIXIR 7.5-325/15 ML PO ×4 (06:19→21:22)
[2021-07-02] MEDS: ALBUTEROL 2.5 MG/3 ML NEB (ADULT) INH (09:03)
[2021-07-02] MEDS: BUDESONIDE 0.5 MG/2 ML NEB INH (09:04)
[2021-07-02] MEDS: dilTIAZem CD 120 MG CAP PO (09:24)
[2021-07-02] MEDS: HEPARIN 5,000 UNIT/ML VIAL 5000 UNIT SUBCUT ×2 (09:24→20:59)
[2021-07-02] MEDS: CITALOPRAM 10 MG TABLET 20 MG PO (09:24)
[2021-07-02] MEDS: MONTELUKAST 10 MG TABLET PO (09:25)
[2021-07-02] MEDS: FERROUS SULFATE 325 MG TABLET PO (09:25)
[2021-07-02] MEDS: predniSONE 20 MG TABLET 40 MG PO (09:25)
[2021-07-02] MEDS: MEROPENEM 1 GM in SODIUM CHLORIDE 0.9% 100 ML 150 ML IV (11:03)
--- NOTE | 2021-07-02 11:10 | CM.DANOTE ---
Addendum entered by DAYSI Rossi 07/02/21 14:59: ADD: Per RN, pt incontinent right now of urine and stool and currently 2PA. PT/OT still pending. SW attempted twice to cathleen into pt room and once answered but garbled and hung up. SW called pt's son/PADDY Ríos and explained role. He confirms he is pt's primary CG and home 24/10 for assist but pt typically is quite independent at baseline but states pt has been significantly below baseline since her d/c a few days ago. Son states he and has have continued to test COVID negative and no symptoms so available for assist as needed but son feels if pt needing more than 1PA at d/c she will need SNF rehab. Son denies that pt has any hx of SNF. Pt has both COVID vaccines but has not been agreeable to getting COVID booster at this time. SW provided SNF Choice list via phone and [facility] be [facility] or [facility] due to location. SW then realized pt is COVID+ from her initial positive test last MonJune 23, 2021 about 9 days ago and discussed pt would likely need to go to SNF COVID unit if SNF needed and closest is [facility] and son states well if SNF needed we don't really have a choice and agreeable with SW beginning making referrals and calling to see possible options. PAT called following SNF COVID units: [facility]- COVID unit is now closed [facility]- COVID unit is closed as of today [facility]- call 07/05/21 after 1000 to confirm if they will continue to operate their COVID unit or not. Christelle at [facility]- left ms and faxed referral in case their COVID unit remains in operation. Plan: SW to follow closely for PT/OT eval and recommendations towards possible need of SNF and confirmation from Christelle at [facility] and [facility] if they will continue their COVID unit. If no accepting COVID+ SNF, pt may have to progress with PT/OT here before safe return home with son assist. DAYSI Rossi Original Note: Pt is a 75 yo female, resident of [place], presents with increased persistent weakness over the last few days w/ shortness of breath. Found to be C19+ w/acute on chronic resp failure, hypoxia and COPD exacerbation. PCP: Citlali Wei Payer: [facility]/ [employer] Patient's son Michoacano and DIL live w/patient. [employer] works, son Michoacano is available to patient throughout the day. Patient has Home O2, walks w/a walker, requires assistance with meal prep, meds, chores/errands and bathing/dressing. Pt was recently discharged home on 06/27/21 a few days ago home with family and had declined HH at that time and now readmitted for similar and feeling globally weak. PT/OT ordered and pending. Pt continues to test COVID+ and therefore on COVID precautions and SW attempted to call into room phone with no answer and will keep attempting to talk to pt and family members today after PT/OT eval and recommendations towards determining if safe for d/c home with HH vs higher level of care needs. Plan: DC home w/family is expected, via family pov. r/o need for HH or higher level of care pending PT/OT initial eval and recommendations. DAYSI Rossi Discharge Planning/Care Management CM Discharge Assessment Start: 07/02/21 11:07 Freq: Status: Active Protocol: Document 07/02/21 11:07 BF (Rec: 07/02/21 11:10 BF [id number]) Discharge Planning Assessment Assigned Ux Design Lead DAYSI [place] DPOA/Assigned Designee Name blayne Farfan Contact Information [phone] Advance Directives? Yes Advance Directives on File No History Provided By Patient,Family Member,Medical Record Has Patient been admitted in last 30 Yes days? Comment Recently discharged home with family after COVID+, SOB Prior Living Arrangements House Household Members family Type of transporation used prior to Drives own vehicle admit Independent with ADL's Yes Is patient alert and oriented? Yes Needs Assistance With Home Chores / Shopping Caregiver for Another No Patient/Family Preference Home with Home Health Barriers to Discharge No Discharge Plan Home with Home Health Transportation Arrangement Family Referrals Initiated Home Health Additional Comment Will follow closely for PT/OT eval and recommendations Review Status In Process Please Provide Date Initial DC 07/02/21 Assessment Was Performed Next Review Type Continued Stay Review
[2021-07-02] MEDS: SODIUM CHLORIDE 0.9% 1,000 ML 42 ML IV (12:55)
--- NOTE | 2021-07-02 14:07 | PC.NURSE ---
Day shifT: Incontinent of bowell and bladder this afternoon. Helped to BSC to finish voiding and having BM. She is 2 ppl max assist. Stool is loose and black in color. Dr Mota made aware of her stool. She also has a large (golf ball sized) growth in the middle of her back. Her left ear also has a large mole on it the size of a kidney [place]. Back in bed, washed/cleaned up, and call light in reach.
--- NOTE | 2021-07-02 15:00 | PT.IIE ---
Surgical History (Last Reviewed 07/02/21 @ 04:36 by João Cervantes MD) History of nephrolithotomy with removal of calculi Medical History (Last Reviewed 07/02/21 @ 04:36 by João Cervantes MD) Atrial fibrillation COPD (chronic obstructive pulmonary disease) COVID Hyperlipidemia Hypertension Joint pain Kidney stones Trigger finger Physical Therapy Inpatient Evaluation/Re-Eval M1 PT/OT-IP Prior Functional Status Start: 07/02/21 16:03 Freq: NEEDED Status: Active Protocol: Document 07/02/21 15:00 AB (Rec: 07/02/21 16:20 AB [id number]) Medical Review Prior Functional Status Medical History Reviewed Yes Communication able to make needs known Mobility and Gait pt was just hospitalized to 06/27/21 and was d/c'd home. pt stated that she is not able to move at home with difficulty mobilizing. Prior to june 24 hospitalization, pt sated that her son assists her with her needs: assisting her with ambulation using FWW to the toilet but when family is not around, she is able to manage by doing a pivot transfer from her lift chair <>bedside commode. pt has been limited with mobility at baseline and mostly just stays on her lift chair . Activities of Daily Living and IADL's DIL assists pt with her shower needs. Social History Household Members family Living Arrangements House Number of Floors (Floors) One Floor Number of Stairs To Enter/Railing? 1 step to enter Home Environment Standard Height Toilet,Tub/ Shower Home Equipment Front Wheel Walker,Bedside Commode,Tub Transfer Bench, Hand Held Shower,Lift Recliner ,Grab Bars Near Toilet,Grab Bars In Shower Additional Social History Comment pt sleeps on her lift recliner use O2 at home ~ 4L/min M2 PT-IP Current Condition Start: 07/02/21 16:03 Freq: NEEDED Status: Active Protocol: Document 07/02/21 15:00 AB (Rec: 07/02/21 16:20 AB [email or web address]) Physical Therapy Current Condition Current Condition Evaluation Date 07/02/21 Treatment Diagnosis Covid; acute kidney failure; difficulty in walking Onset Date 07/01/21 M3 PT-IP Subjective Start: 07/02/21 16:03 Freq: NEEDED Status: Active Protocol: Document 07/02/21 15:00 AB (Rec: 07/02/21 16:20 [email or web address]) Subjective Physical Therapy Visit Type Type Initial Evaluation Visit Start Time 15:00 Visit Stop Time 15:43 Total Visit Minutes 43 Number of TILE AND MARBLE SETTER Visits 0 Physical Therapy Visit Comments Patient Comments agreeable to do PT Therapy Pain Assessment Pain When Pain Assessed At Rest Pain Present Pain Present Pain Reported Location Right Knee Scale Used pain scale not stated Pain Management Techniques Distraction,Modification of Treatment,Re-positioning Right Back Scale Used pain scale not stated Pain Management Techniques Distraction,Modification of Treatment,Re-positioning M4 PT-IP Mobility and Gait Start: 07/02/21 16:03 Freq: NEEDED Status: Active Protocol: Document 07/02/21 15:00 AB (Rec: 07/02/21 16:20 [email or web address]) PT-Bed Mobility Assessment Supine to Sit Supine to Sit Minimal Assistance,Head of Bed Elevated Scooting Scooting to Edge of Bed Maximum Assistance PT-Transfer Assessment Sit to and From Stand Sit to and from Stand Maximum Assistance,1 Person Assistance,2 Person Assistance ,Use of Upper Extremities Equipment Transfer Assistive Device Gait Belt,Front Wheeled Walker Orthotic/Prosthetic Devices or Brace: No Transfers Transfer Destination Chair Transfer Technique Stand Step Pivot Transfer Ability Level of Assist Maximum Assistance,1 Person Assistance,2 Person Assistance ,Use of Upper Extremities Comments Mobility Comments BP: 133/81 o2 sat 98%. completed supine to sit min A with HOB elevated. max A for scooting to EOB. able to sit on EOB SBA. completed sit to stand max A x 1-2 and max cues . completed step transfer to chair max A x 1-2 and max cues . pt agreed to ambulate and completed ~ 3 ft using FWW max A x1-2 and max cues. presents with shuffling gait and requires assist with weight shifting to assist with LE propulsion. pt agreed to sit up on chair. positioned on chair. call light and table placed within reach. Gait Assessment Gait Gait Assistance Required: Maximum Assistance,1 Person Assist,2 Person Assist Distance (Feet) 3 Able to Maintain Weight Bearing Status Yes During Gait Assistive Devices Assistive Device Gait Belt,Front Wheeled Walker Orthotic/Prosthetic Devices or Brace: No Gait Deviations General Gait Pattern Decreased Stride Length, Decreased Feet Clearance,Step- to Gait,Wide Based Gait Factors Limiting Gait Function Factors Limiting Gait Function Decreased Activity Tolerance, Decreased Strength,Difficulty Following Directions,Limited Range of Motion,Pain,Poor Balance,Poor Safety Awareness, Respiratory Distress PT-Balance Assessment Sitting Balance and Reactions Static Sitting Balance Ability Good Dynamic Sitting Balance Ability Good Standing Balance and Reactions Static Standing Balance Ability Poor Dynamic Standing Balance Ability Poor Device Used FWW M5 PT-IP Objective Assessments Start: 07/02/21 16:03 Freq: NEEDED Status: Active Protocol: Document 07/02/21 15:00 AB (Rec: 07/02/21 16:20 AB [email or web address]) Orientation Orientation/Cognition Level of Alertness Alert Orientation Name Language Function Ability Hard of Hearing Safety Awareness Decreased Safety Awareness Memory Description Short Term Impaired Gross Range of Motion Lower Extremity ROM Assessment Right Impaired Impairments R knee (+) crepitus with c/o pain with movement Strength Lower Extremity Strength Assessment Right Impaired Hip 4-/5 Knee 3+/5 Coordination Assessment Gross Coordination Gross Coordination WNL Muscle Tone Muscle Tone WNL Yes M6 PT-IP Treatment Start: 07/02/21 16:03 Freq: NEEDED Status: Active Protocol: Document 07/02/21 15:00 AB (Rec: 07/02/21 16:20 AB [email or web address]) Physical Therapy Treatment Education Education Provided Safety M7 PT-IP Assessment and Plan Start: 07/02/21 16:03 Freq: NEEDED Status: Active Protocol: Document 07/02/21 15:00 AB (Rec: 07/02/21 16:20 AB [email or web address]) PT Summary Assessment and Plan Potential Rehabilitation Potential Fair Status of Condition at Evaluation Evolving Summary Impairments Pain,ROM,Strength,Balance, Coordination,Sensation,Tone, Cognition,Bed Mobility, Transfers,Gait,Activity Tolerance Assessment Summary pt requiring max A x 1-2 with transfers and ambulation using FWW. pt with decrease activity tolerance and with c/ o LBP and R knee pain affecting mobility. pt will require SNF rehab to improve overall strength and mobility. will continue to assess progress. Goals Bed Mobility Goal Standby Assistance Transfer Goal Contact Guard Assistance,Front Wheeled Walker Gait Goal Contact Guard Assistance,Front Wheel Walker Gait Distance 25 Other Goals up/down 1 step using FWW min A Days to Meet Goals 5 Frequency of Treatment Frequency Of Treatment Once a Day Treatment Plan Physical Therapy Treatment Plan Bed Mobility Training,Transfer Training,Gait Training, Therapeutic Exercise,Balance Retraining,Discharge Planning, Hot or Cold Pack,Neuromuscular Re-ed,Coordination Retraining Precautions Other Precautions Covid Recommendations To Nursing Amount of Assist Needed 2 Person Assist Discharge Recommendations PT Discharge Recommendations Home with 24/10 Assist Available,Home Health,SNF Rehab,Home vs SNF Transportation Needs at Discharge Private Vehicle,Wheelchair/ Cabulance
--- NOTE | 2021-07-02 15:13 | P.PN_ITS ---
Subjective Subjective Date Patient Seen: 07/02/21 Interval history: Patient states breathing is stable and she is not feeling short of breath at rest. She feels weak and waiting to mobilize out of bed. Exam Vital Signs (past 8 hours): - 07/02/21 08:40 07/02/21 09:46 07/02/21 10:02 Temperature 98.6 F Pulse Rate 85 88 Respiratory Rate 16 24 Blood Pressure 97/54 L Pulse Oximetry 96 95 94 07/02/21 14:00 Temperature 98.9 F Pulse Rate 87 Respiratory Rate 18 Blood Pressure 92/45 L Pulse Oximetry 98 Oxygen Delivery Method Nasal Cannula Oxygen Flow Rate 4 Narrative Exam Narrative: General: Alert and cooperative female in bed and in no acute distress Lungs: Mild bilateral end expiratory wheeze Extremities: No edema Neurological: Speech normal, affect normal Objective Labs Result Diagrams: 07/02/21 03:25 07/02/21 03:25 Labs: Laboratory Results - last 24 hr 07/01/21 07/01/21 07/01/21 19:30 19:45 19:45 WBC 7.7 RBC 3.62 L Hgb 10.6 L Hct 32.1 L MCV 88.6 MCH 29.3 MCHC 33.1 RDW 13.6 Plt Count 209 Neut % (Auto) 88.2 H Lymph % (Auto) 5.2 L Sullivan % (Auto) 6.5 Eos % (Auto) 0.1 L Baso % (Auto) 0.0 Neut # (Auto) 6800 Lymph # (Auto) 400 L Sullivan # (Auto) 500 Eos # (Auto) 0 Baso # (Auto) 0 D-Dimer 227 Sodium Potassium Chloride Carbon Dioxide BUN Creatinine Estimated GFR BUN/Creatinine Ratio Glucose Lactate Calcium Phosphorus Magnesium Total Bilirubin AST ALT Alkaline Phosphatase Troponin I NT-Pro-B Natriuret Pep Total Protein Albumin Globulin Albumin/Globulin Ratio Lipase Procalcitonin Urine Color Urine Appearance Urine pH Ur Specific [place] Urine Protein Urine Glucose (UA) Urine Ketones Urine Occult Blood Urine Nitrate Urine Bilirubin Urine Urobilinogen Ur Leukocyte Esterase Urine RBC Urine WBC Ur Squamous Epith Cells Amorphous Sediment Urine Bacteria Granular Casts Ur Culture Indicated? Chlamy pneumoniae PCR Not detected Adenovirus (PCR) Not detected B. pertussis DNA (PCR) Not detected B.parapertussis DNA PCR Not detected Coronavirus OC43 (PCR) Not detected Coronavirus HKU1 (PCR) Not detected Coronavirus 229E (PCR) Not detected SARS-CoV-2 (PCR) Detected H Coronavirus NL63 (PCR) Not detected Human Metapneumovir PCR Not detected Influenza Type A (PCR) Not detected Influenza Type B (PCR) Not detected M. pneumoniae (PCR) Not detected Parainfluenza 1 (PCR) Not detected Parainfluenza 2 (PCR) Not detected Parainfluenza 3 (PCR) Not detected Parainfluenza 4 (PCR) Not detected RSV (PCR) Not detected Entero/Rhino (PCR) Not detected Blood Type Antibody Screen 07/01/21 07/01/21 07/01/21 20:00 20:00 20:00 WBC RBC Hgb Hct MCV MCH MCHC RDW Plt Count Neut % (Auto) Lymph % (Auto) Sullivan % (Auto) Eos % (Auto) Baso % (Auto) Neut # (Auto) Lymph # (Auto) Sullivan # (Auto) Eos # (Auto) Baso # (Auto) D-Dimer Sodium 125 L Potassium 2.6 L* Chloride 84 L Carbon Dioxide 34 H BUN 22 H Creatinine 1.48 H Estimated GFR 34.2 L BUN/Creatinine Ratio 14.9 Glucose 128 H Lactate 1.7 Calcium 8.5 Phosphorus Magnesium 1.9 Total Bilirubin 0.4 AST 22 ALT 9 Alkaline Phosphatase 50 Troponin I 0.019 NT-Pro-B Natriuret Pep 1170 H Total Protein 6.6 Albumin 3.6 Globulin 3.0 Albumin/Globulin Ratio 1.2 Lipase 28 Procalcitonin 0.26 Urine Color Urine Appearance Urine pH Ur Specific [place] Urine Protein Urine Glucose (UA) Urine Ketones Urine Occult Blood Urine Nitrate Urine Bilirubin Urine Urobilinogen Ur Leukocyte Esterase Urine RBC Urine WBC Ur Squamous Epith Cells Amorphous Sediment Urine Bacteria Granular Casts Ur Culture Indicated? Chlamy pneumoniae PCR Adenovirus (PCR) B. pertussis DNA (PCR) B.parapertussis DNA PCR Coronavirus OC43 (PCR) Coronavirus HKU1 (PCR) Coronavirus 229E (PCR) SARS-CoV-2 (PCR) Coronavirus NL63 (PCR) Human Metapneumovir PCR Influenza Type A (PCR) Influenza Type B (PCR) M. pneumoniae (PCR) Parainfluenza 1 (PCR) Parainfluenza 2 (PCR) Parainfluenza 3 (PCR) Parainfluenza 4 (PCR) RSV (PCR) Entero/Rhino (PCR) Blood Type A Negative Antibody Screen Negative 07/01/21 07/02/21 07/02/21 20:05 03:25 03:25 WBC 5.8 RBC 3.68 L Hgb 10.8 L Hct 32.8 L MCV 89.0 MCH 29.3 MCHC 32.9 RDW 13.5 Plt Count 203 Neut % (Auto) 87.4 H Lymph % (Auto) 7.1 L Sullivan % (Auto) 5.2 Eos % (Auto) 0.1 L Baso % (Auto) 0.2 Neut # (Auto) 5100 Lymph # (Auto) 400 L Sullivan # (Auto) 300 Eos # (Auto) 0 Baso # (Auto) 0 D-Dimer Sodium 128 L Potassium 3.9 D Chloride 91 L Carbon Dioxide 32 BUN 20 H Creatinine 1.02 Estimated GFR 52.5 L BUN/Creatinine Ratio 19.6 Glucose 71 L Lactate Calcium 8.1 L Phosphorus 3.7 Magnesium 1.9 Total Bilirubin AST ALT Alkaline Phosphatase Troponin I NT-Pro-B Natriuret Pep Total Protein Albumin Globulin Albumin/Globulin Ratio Lipase Procalcitonin Urine Color Yellow Urine Appearance Clear Urine pH 5.0 Ur Specific [place] 1.025 Urine Protein Trace H Urine Glucose (UA) Negative Urine Ketones Negative Urine Occult Blood Negative Urine Nitrate Negative Urine Bilirubin Negative Urine Urobilinogen 0.2 Ur Leukocyte Esterase Trace H Urine RBC None seen Urine WBC 0-1/hpf Ur Squamous Epith Cells 0-1 /hpf Amorphous Sediment 2+ Urine Bacteria Occasional (0-1) Granular Casts 0-1/lpf Ur Culture Indicated? Specimen cultured Chlamy pneumoniae PCR Adenovirus (PCR) B. pertussis DNA (PCR) B.parapertussis DNA PCR Coronavirus OC43 (PCR) Coronavirus HKU1 (PCR) Coronavirus 229E (PCR) SARS-CoV-2 (PCR) Coronavirus NL63 (PCR) Human Metapneumovir PCR Influenza Type A (PCR) Influenza Type B (PCR) M. pneumoniae (PCR) Parainfluenza 1 (PCR) Parainfluenza 2 (PCR) Parainfluenza 3 (PCR) Parainfluenza 4 (PCR) RSV (PCR) Entero/Rhino (PCR) Blood Type Antibody Screen PFSH Medical History Atrial fibrillation COPD (chronic obstructive pulmonary disease) COVID Hyperlipidemia Hypertension Joint pain Kidney stones Trigger finger Surgical History History of hip replacement History of nephrolithotomy with removal of calculi Family History Mother Coronary artery disease Sister Heart problem Social History marital status: household members: family housing: house Smoking Status: Former smoker alcohol intake: former Assessment & Plan Assessment & Plan narrative: Ms. House is a 75W with PMH COPD with chronic respiratory failure, HTN, HL, who presents with generalized weakness. 1. Generalized weakness from dehydration, HALIMA, hyponatremia/hypokalemia, acute -suspect this is caused by dehydration from poor appetite from recent illness, along with diarrhea and continued HCTZ use -suspect hyponatremia is hypovolemic -hold HCTZ -continue gentle IV fluids -monitor for diarrhea, if significant check C diff -replete potassium, corrected -doubt GI bleed, but monitor hemoglobin, stools are black due to patient taking iron and recently Pepto-Bismol at home 2. Chronic hypoxic respiratory failure from COPD with recent COVID and pseudomonas infection -patient continues to state feels short of breath, suspect component of chronic shortness of breath -on 3L O2 at rest, 5L with activity chronically -has received steroids and abx for 7 days -chest xray appears slightly worsened from previously -for now continue meropenem for pseudomonas pneumonia, and continue prednisone, potentially for slightly longer 10-14 day course 3. Paroxysmal atrial fibrillation -continue diltiazem -no anticoagulation given history of bleeding 4. Chronic iron deficiency anemia -continue home iron -advise patient to avoid Pepto-Bismol CODE: Full Proxy: [place] Farfan, son Time Spent With Patient Critical Care time: I spent a total of [] minutes of critical care time on this patient's care today; this time is exclusive of procedural time. Quality VTE Deep Vein Thrombosis/Pulmonary Embolism Present on Admission: No
--- NOTE | 2021-07-02 16:15 | OT.IP.EVAL ---
Past Medical History (Last Reviewed 07/02/21 @ 04:36 by João Cervantes MD) Atrial fibrillation COPD (chronic obstructive pulmonary disease) COVID History of hip replacement Hyperlipidemia Hypertension Joint pain Kidney stones Trigger finger Surgical History (Last Reviewed 07/02/21 @ 04:36 by João Cervantes MD) History of hip replacement History of nephrolithotomy with removal of calculi Occupational Therapy Inpatient Evaluation/Re-Eval M1 PT/OT-IP Prior Functional Status Start: 07/02/21 16:03 Freq: NEEDED Status: Active Protocol: Document 07/02/21 15:00 AB (Rec: 07/02/21 16:20 AB [id number]) Medical Review Prior Functional Status Medical History Reviewed Yes Communication able to make needs known Mobility and Gait pt was just hospitalized to 06/27/21 and was d/c'd home. pt stated that she is not able to move at home with difficulty mobilizing. Prior to june 24 hospitalization, pt sated that her son assists her with her needs: assisting her with ambulation using FWW to the toilet but when family is not around, she is able to manage by doing a pivot transfer from her lift chair <>bedside commode. pt has been limited with mobility at baseline and mostly just stays on her lift chair . Activities of Daily Living and IADL's DIL assists pt with her shower needs. Social History Household Members family Living Arrangements House Number of Floors (Floors) One Floor Number of Stairs To Enter/Railing? 1 step to enter Home Environment Standard Height Toilet,Tub/ Shower Home Equipment Front Wheel Walker,Bedside Commode,Tub Transfer Bench, Hand Held Shower,Lift Recliner ,Grab Bars Near Toilet,Grab Bars In Shower Additional Social History Comment pt sleeps on her lift recliner use O2 at home ~ 4L/min M1 PT/OT-IP Prior Functional Status Start: 07/02/21 16:59 Freq: NEEDED Status: Active Protocol: Document 07/02/21 16:00 [facility] (Rec: 07/02/21 17:24 [facility] [id number]) Medical Review Prior Functional Status Medical History Reviewed Yes Communication able to make needs known Mobility and Gait pt was just hospitalized to 06/27/21 and was d/c'd home. pt stated that she is not able to move at home with difficulty mobilizing. Prior to june 24 hospitalization, pt stated that her son assists her with her needs: assisting her with ambulation using FWW to the toilet but when family is not around, she is able to manage by doing a pivot transfer from her lift chair <>bedside commode. pt has been limited with mobility at baseline and mostly just stays on her lift chair . Activities of Daily Living and IADL's DIL assists pt with her shower needs. Pt states that she needs assist for dressing, toileting, showering and set- up for eating and grooming needs. Social History Household Members family Living Arrangements House Number of Floors (Floors) One Floor Number of Stairs To Enter/Railing? 1 step to enter Home Environment Standard Height Toilet,Tub/ Shower Home Equipment Front Wheel Walker,Bedside Commode,Tub Transfer Bench, Hand Held Shower,Lift Recliner ,Grab Bars Near Toilet,Grab Bars In Shower Additional Social History Comment pt sleeps on her lift recliner use O2 at home ~ 4L/min M2 OT-IP Current Condition Start: 07/02/21 16:59 Freq: Status: Active Protocol: Document 07/02/21 16:00 [facility] (Rec: 07/02/21 17:24 [facility] [id number]) Occupational Therapy Current Condition Current Condition Evaluation Date 07/02/21 Treatment Diagnosis COVID PNA, weakness Diagnosis Onset Date 07/01/21 M3 OT- IP Subjective and Pain Start: 07/02/21 16:59 Freq: Status: Active Protocol: Document 07/02/21 16:00 [facility] (Rec: 07/02/21 17:24 [facility] [id number]) OT- Subjective Occupational Therapy Visit Type Type Initial Evaluation Visit Start Time 16:00 Visit Stop Time 16:15 Total Visit Minutes 15 Occupational Therapy Visit Comments Patient Comments Pt agreed to work with OT and wanting to do grooming and oral care needs. Patient/Caregiver Goals To get better. OT Pain Assessment Pain When Pain Assessed At Rest Pain Present Pain Present Denied Pain M4 OT- IP ADL's Start: 07/02/21 16:59 Freq: Status: Active Protocol: Document 07/02/21 16:00 [facility] (Rec: 07/02/21 17:24 [facility] [id number]) OT [id number] Comments OT Self-Feeding Comments Not at meal time. Due to her limited movement with BUE needs assist for set-up of the try. To look into if adaptive utensil will be helpful tomorrow. OT ADL-Grooming General Evaluation Grooming Ability Standby Assistance Areas Needing Assistance Retrieving/Set-up of Grooming Items OT ADL-Oral Care General Eval Oral Care Ability Minimal Assistance Areas of Assistance Managing Dentures,Retrieving/ Set-Up of Items Comments Oral Care Comments Assist to rinse off her dentures in the sink. OT ADL-Dressing Comments OT Dressing Comments No performed. OT ADL-Toileting Comments OT Toileting Comments Pt not having to go. Pt states at home pivots to the [facility] on her own. OT ADL-Bathing Comments OT Bathing Comments sponge bath more appropriate at this time M5 OT- IP IADL's Start: 07/02/21 16:59 Freq: Status: Active Protocol: Document 07/02/21 16:00 [facility] (Rec: 07/02/21 17:24 [facility] [id number]) OT-Instrumental Activities of Daily Living Home Safety Awareness Home Safety Comments Pt family at home to assist for pt's needs. Medication Management Medication Management Caregiver Administers Money Management Money Management Caregiver Provides Assistance Meal Preparation Meal Preparation Caregiver Provides Assist Seismograph Observer Seismograph Observer Caregiver Provides Assist M6 OT- IP Functional Cognition Start: 07/02/21 16:59 Freq: Status: Active Protocol: Document 07/02/21 16:00 [facility] (Rec: 07/02/21 17:24 [facility] [id number]) Cognitive Factors Limiting Selfcare Function Cognitive Ability Level of Alertness Alert Patient Orientation Name Attention Span Ability Capable of Focused Attention, Capable of Sustained Attention Ability to Follow Commands Able to Follow One Step Commands with Increased Time, Able to Follow One Step Commands with Repetition Memory Description Short Term Impaired Cognitive Comments Cognitive Assessment Comments Pt able to follow simple commands for grooming needs. M7 OT- IP Mobility and Balance Start: 07/02/21 16:59 Freq: Status: Active Protocol: Document 07/02/21 16:00 [facility] (Rec: 07/02/21 17:24 [facility] [id number]) OT-Transfer Assessment Sit to and From Stand Sit to and from Stand Maximum Assistance,1 Person Assistance Comments Mobility Comments MAX A x 1 to stand to FWW. Pt very unsteady on her feet and tends to lean backwards. OT- Balance Assessment Sitting Balance and Reactions Static Sitting Balance Ability Fair Standing Balance and Reactions Static Standing Balance Ability Poor M8 OT- IP Objective Assessments Start: 07/02/21 16:59 Freq: Status: Active Protocol: Document 07/02/21 16:00 [facility] (Rec: 07/02/21 17:24 [facility] [id number]) OT Gross Range of Motion Upper Extremity Range of Motion Assessment Bilaterally Impaired ROM Impairments Pt not able to raise her RUE and needing to use her left hand to help raise her left arm up. LUE able to raise to 0-45degrees shoulder flexion. Pt has arthritic changes in her hands. OT- Coordination Assessment Comments Coordination Comments Pt needing assist for all set- up needs. OT-Muscle Tone Assessment Muscle Tone WNL Yes M9 OT- IP Assessment and Plan Start: 07/02/21 16:59 Freq: Status: Active Protocol: Document 07/02/21 16:00 [facility] (Rec: 07/02/21 17:24 [facility] [id number]) OT Summary Assessment and Plan Potential Rehabilitation Potential Fair Analytic Complexity at Evaluation Moderate Summary OT Impairments Range of Motion,Strength, Balance,Functional Cognition, Functional Mobility,Self- Feeding,Grooming,Dressing, Toileting,Toilet Transfers, Shower Transfers,Activity Tolerance Progress Towards Goals Slow Progress due to Medical Issues,Slow Progress due to Activity Tolerance,Slow Progress due to Cognition Assessment Summary Pt MOD complexity and main barriers are weakness, decreased balance, and now needing extensive assist x2 for mobility and ADL needs. Pt will benefit from skilled rehab prior to going home pending if pt improves medically and possible go home with family and 24/10 assist. Goals Grooming Goal Standby Assistance Dressing Goal Moderate Assistance Toileting Goal Standby Assistance Bathing Goal Moderate Assistance Toilet Transfer Goal Minimal Assistance Shower Transfer Goal Minimal Assistance Days to Meet Goals 20 Frequency of Treatment Frequency Of Treatment Once a Day Treatment Plan OT Treatment Plan ADL Training,Functional Cognition Training,Functional Mobility,Patient/Family Education,Discharge Planning Discharge Recommendations OT Discharge Recommendations SNF Rehab Transportation Needs at Discharge Wheelchair/Cabulance
[2021-07-02] MEDS: CARBIDOPA-LEVODOPA 25/100 TABLET 1 EACH PO (20:59)
--- NOTE | 2021-07-02 22:32 | PC.NURSE ---
Patient is alert and oriented. Breath sounds with expiratory rhonchi throughout. Initially on oxygen at 4L/min per [place] with sat of 100% so decreased to 3L/min and now at 99% (uses home O2). Denies SOB at rest but still SOB with activity. HRR. Denies nausea. BT present; had BM earlier that was soft and formed. Voided on BSC but is also incontinent of urine. Needing help to reposition in bed and gets in/out of bed with walker and 2 assists due to generalized weakness and SOB. Complained of back pain earlier (chronic) and was medicated with Vicodin. Fall risk score is high and bed alarm is activated. Remains on droplet/aerosolizing precautions related to being covid positive.
[2021-07-03] VITALS (7 sets, daily range): BP systolic 122–167; BP diastolic 58–78; PULSE 69–86; RESP 16–18; TEMP 36.1–37.1; O2SAT 92–98
[2021-07-03] MEDS: MEROPENEM 1 GM in SODIUM CHLORIDE 0.9% 100 ML 200 ML IV
[2021-07-03 05:38] LABS: Add Manual Diff / Slide Review NO; Basophils Absolute Auto 0 /uL (0-100); Basophils Percent Auto 0.3 % (0-2); Eosinophils Absolute Auto 0 /uL (0-450); Eosinophils Percent Auto 0.1 % (2-4); Hematocrit 29.3 % (36-46); Hemoglobin 9.9 g/dL (12.0-16.0); Lymphocytes Absolute Auto 400 /uL (1100-4500); Lymphocytes Percent Auto 9.6 % (25-40); Mean Corpuscular HGB Conc 33.7 % (30-36); Mean Corpuscular Hemoglobin 29.7 PG (26-34); Mean Corpuscular Volume 88.1 fL (80-100); Monocytes Absolute Auto 400 /uL (0-900); Monocytes Percent Auto 8.6 % (3-14); Neutrophils Absolute Auto 3600 /uL (1500-7000); Neutrophils Percent Auto 81.4 % (50-75); Platelet Count 195 X10^3/uL (150-400); Red Blood Cell Count 3.32 X10^6/uL (4.0-5.2); White Blood Cell Count 4.4 X10^3/uL (4.5-11.0)
[2021-07-03 05:46] LABS: BUN Creatinine Ratio 30.6 (6-22); Blood Urea Nitrogen 19 mg/dL (7-17); Calcium 8.2 mg/dL (8.4-10.2); Carbon Dioxide 37 mmol/L (22-32); Chloride 97 mmol/L (98-107); Estimated Glomerular Filt Rate > 60.0 mL/min (>60); Glucose 100 mg/dL (80-110); HEMOLYSIS < 15 (0-50); Potassium 4.4 mmol/L (3.4-5.1); Sodium 132 mmol/L (137-145)
[2021-07-03] MEDS: HYDROCODONE/ACET EXLIXIR 7.5-325/15 ML PO ×3 (06:08→14:09)
[2021-07-03] MEDS: BUDESONIDE 0.5 MG/2 ML NEB INH ×2 (08:37→19:08)
[2021-07-03] MEDS: ALBUTEROL 2.5 MG/3 ML NEB (ADULT) INH ×2 (08:37→19:09)
[2021-07-03] MEDS: HEPARIN 5,000 UNIT/ML VIAL 5000 UNIT SUBCUT ×2 (09:06→20:11)
[2021-07-03] MEDS: predniSONE 20 MG TABLET 40 MG PO (09:07)
[2021-07-03] MEDS: MONTELUKAST 10 MG TABLET PO (09:07)
[2021-07-03] MEDS: CITALOPRAM 10 MG TABLET 20 MG PO (09:07)
[2021-07-03] MEDS: dilTIAZem CD 120 MG CAP PO (09:07)
[2021-07-03] MEDS: GABAPENTIN 300 MG CAPSULE PO ×3 (09:07→20:11)
[2021-07-03] MEDS: FERROUS SULFATE 325 MG TABLET PO (09:08)
--- NOTE | 2021-07-03 09:30 | OT.IP.TRT ---
Occupational Therapy Treatment Note M2 OT-IP Current Condition Start: 07/02/21 16:59 Freq: Status: Active Protocol: Document 07/02/21 16:00 [facility] (Rec: 07/02/21 17:24 [facility] [id number]) Occupational Therapy Current Condition Current Condition Evaluation Date 07/02/21 Treatment Diagnosis COVID PNA, weakness Diagnosis Onset Date 07/01/21 M3 OT- IP Subjective and Pain Start: 07/02/21 16:59 Freq: Status: Active Protocol: Document 07/03/21 08:57 [facility] (Rec: 07/03/21 12:59 [facility] [id number]) OT- Subjective Occupational Therapy Visit Type Type Treatment Note Visit Start Time 08:57 Visit Stop Time 09:30 Total Visit Minutes 33 Occupational Therapy Visit Comments Patient Comments Able to see pt with THRESHER BROOMCORN as pt needing extensive assist for mobility needs yesterday. Patient/Caregiver Goals To go home. OT Pain Assessment Pain When Pain Assessed At Rest Pain Present Pain Present Denied Pain M4 OT- IP ADL's Start: 07/02/21 16:59 Freq: Status: Active Protocol: Document 07/03/21 08:57 [facility] (Rec: 07/03/21 12:59 [facility] [id number]) OT [id number] Comments OT Self-Feeding Comments Pt not hungry and did not eat much of her meal. OT ADL-Grooming Comments OT Grooming Comments Pt refused. OT ADL-Oral Care Comments Oral Care Comments Pt refused. OT ADL-Dressing General Eval Lower Body Dressing Ability Maximum Assistance Comments OT Dressing Comments Due to her decreased AROM , pt not able to eder pull up brief and needing assist to help thread over her feet and up over his her hips. OT ADL-Toileting General Evaluation Toileting Ability Maximum Assistance Areas Needing Assistance Manage Clothing,Perform Perineal Hygiene Comments OT Toileting Comments Pt able to wipe with wet wipe with right hand and needing assist for completeness at the end as THRESHER BROOMCORN able to stand with pt to FWW KIKO. M5 OT- IP IADL's Start: 07/02/21 16:59 Freq: Status: Active Protocol: Document 07/02/21 16:00 [facility] (Rec: 07/02/21 17:24 [facility] [id number]) OT-Instrumental Activities of Daily Living Home Safety Awareness Home Safety Comments Pt family at home to assist for pt's needs. Medication Management Medication Management Caregiver Administers Money Management Money Management Caregiver Provides Assistance Meal Preparation Meal Preparation Caregiver Provides Assist Meter Installer And Remover Meter Installer And Remover Caregiver Provides Assist M6 OT- IP Functional Cognition Start: 07/02/21 16:59 Freq: Status: Active Protocol: Document 07/03/21 08:57 [facility] (Rec: 07/03/21 12:59 [facility] [id number]) Cognitive Factors Limiting Selfcare Function Cognitive Comments Cognitive Assessment Comments Pt states, I just want to , all to be over. When asked what she wanted to do to go home or skilled rehab. Able to further question pt is she had an active plan to kill herself, pt states, I couldn't do that to myself and I don't have the courage. Pt states feels safe for her family to assist her at home. Able to notify nursing and hospitalist of pt's statements . M7 OT- IP Mobility and Balance Start: 07/02/21 16:59 Freq: Status: Active Protocol: Document 07/03/21 08:57 [facility] (Rec: 07/03/21 12:59 [facility] [id number]) OT-Transfer Assessment Sit to and From Stand Sit to and from Stand Minimal Assistance,Moderate Assistance Transfers Transfer Ability Minimal Assistance,Moderate Assistance Technique Transfer Destination Bed,Bedside Commode,Chair Transfer Technique Stand Step Pivot Devices Transfer Assistive Devices Gait Belt,Front Wheeled Walker Comments Mobility Comments Pt doing much better today and able to stand with KIKO to MODA x 1 depending on height of surface standing up from. OT- Balance Assessment Sitting Balance and Reactions Static Sitting Balance Ability Good Dynamic Sitting Balance Ability Fair Standing Balance and Reactions Static Standing Balance Ability Fair M8 OT- IP Objective Assessments Start: 07/02/21 16:59 Freq: Status: Active Protocol: Document 07/02/21 16:00 [facility] (Rec: 07/02/21 17:24 [facility] [id number]) OT Gross Range of Motion Upper Extremity Range of Motion Assessment Bilaterally Impaired ROM Impairments Pt not able to raise her RUE and needing to use her left hand to help raise her left arm up. LUE able to raise to 0-45degrees shoulder flexion. Pt has arthritic changes in her hands. OT- Coordination Assessment Comments Coordination Comments Pt needing assist for all set- up needs. OT-Muscle Tone Assessment Muscle Tone WNL Yes M9 OT- IP Assessment and Plan Start: 07/02/21 16:59 Freq: Status: Active Protocol: Document 07/03/21 08:57 [facility] (Rec: 07/03/21 12:59 [facility] [id number]) OT Summary Assessment and Plan Potential Rehabilitation Potential Fair Analytic Complexity at Evaluation Moderate Summary OT Impairments Range of Motion,Strength, Balance,Functional Cognition, Functional Mobility,Self- Feeding,Grooming,Dressing, Toileting,Toilet Transfers, Shower Transfers,Activity Tolerance Progress Towards Goals Progressing Toward Goals Assessment Summary Pt much improve today for mobility needs and now just needing one person assist for transfers and able to assist to wipe her self while using the BSC. Pt's family to come tomorrow for caregiver training with pt for step management. Pt looking to go home with family to assist. Goals Grooming Goal Standby Assistance Dressing Goal Moderate Assistance Toileting Goal Standby Assistance Bathing Goal Moderate Assistance Toilet Transfer Goal Minimal Assistance Shower Transfer Goal Minimal Assistance Days to Meet Goals 5 Frequency of Treatment Frequency Of Treatment Once a Day Treatment Plan OT Treatment Plan ADL Training,Functional Cognition Training,Functional Mobility,Patient/Family Education,Discharge Planning Discharge Recommendations OT Discharge Recommendations Home with 24/10 Assist Available,Home Health Transportation Needs at Discharge Private Vehicle
--- NOTE | 2021-07-03 09:30 | PT.IPTN ---
Physical Therapy Treatment Note M2 PT-IP Current Condition Start: 07/02/21 16:03 Freq: NEEDED Status: Active Protocol: Document 07/03/21 08:50 SP (Rec: 07/03/21 11:03 SP [id number]) Physical Therapy Current Condition Current Condition Evaluation Date 07/02/21 Treatment Diagnosis Covid; acute kidney failure; difficulty in walking Onset Date 07/01/21 M3 PT-IP Subjective Start: 07/02/21 16:03 Freq: NEEDED Status: Active Protocol: Document 07/03/21 08:50 SP (Rec: 07/03/21 11:03 SP [id number]) Subjective Physical Therapy Visit Type Type Treatment Note Visit Start Time 08:57 Visit Stop Time 09:30 Total Visit Minutes 33 Notes Co tx with OT for safety potential 2nd person assist. Vitals taken during tx: supine: BP 124/59 HR 77 Kp 2 95% on 3L seated post transfer BSC>chair : BP 122/62 HR 86 SaO2 93% on 3L. Pt teary eyed during tx, reports difficulty with breathing during mobility, states I just want to , all to be over. When OT asked if would harm herself she stated no, I couldn't do that to myself, I don't have the courage. LIVESTOCK RANCHER asked if she feels safe at home, pt responded yes, I feel safe, I have alot of help. Physical Therapy Visit Comments Patient Comments Pt agreeable to working with therapy when arrived, stated might need to be cleaned up. Patient Goals Pt agreeable to going home and son is able to assist her, discussed end of tx. Therapy Pain Assessment Pain When Pain Assessed During Mobility Pain Present Pain Present Pain Reported Location Right Back Scale Used LBP, not quantified Description With Movement Pain Behaviors Facial Grimacing Pain Management Techniques Distraction,Modification of Treatment,Re-positioning M4 PT-IP Mobility and Gait Start: 07/02/21 16:03 Freq: NEEDED Status: Active Protocol: Document 07/03/21 08:50 SP (Rec: 07/03/21 11:03 SP [id number]) PT-Bed Mobility Assessment Supine to Sit Supine to Sit Minimal Assistance,Moderate Assistance,Head of Bed Elevated Scooting Scooting to Edge of Bed Moderate Assistance PT-Transfer Assessment Sit to and From Stand Sit to and from Stand Moderate Assistance,Maximum Assistance,1 Person Assistance ,Use of Upper Extremities Equipment Transfer Assistive Device Gait Belt,Front Wheeled Walker Orthotic/Prosthetic Devices or Brace: No Transfers Transfer Destination Chair,Bedside Commode Transfer Technique Stand Step Pivot Transfer Ability Level of Assist Minimal Assistance,1 Person Assistance,Use of Upper Extremities Comments Mobility Comments Completed elevated supine<>sit Min- Mod A for trunk support and LLE toward EOB, scoot Mod A for pelvis advancement L>R and trunk stability. Pt required rest breaks during scoot and once EOB for breath, tiring and LBP pain recovery, maintained low 90s throughout tx. Cues for slow pacing breath with more calm fascial expression. Dr Mota hospitalist arrived to provide assessment. Pt able to sit CGA initially then unsupported on EOB, close SBA. Sit>stand Mod-Max Ax1 using FWW, tried to redirect RLE on bed to push but unsuccessful, pt pulled from fWW. Once in standing pt stated felt dizzy, completed SPT to R to BSC Kera x1, cues for backing up positioning by OT and little support of FWW repositioning by LIVESTOCK RANCHER while provided Min A trunk stability via gait belt. Min A slow sit on BSC, cues reach back but unsuccessful. Pt sitting balance on BSC SBA BUE on BSC arms. Pt worked with OT on pericare. Sit>stand Min- Mod A from BSC with education on pushing from BSC arm rest RUE decreased physical support required. Standing balance CG- Min A using fWW, OT provided further pericare assist. SPT BSC> chair using fWW Kera, cued and pt reached back for chair arm RUE low descent Min A. Pt require scoot back in chair A x2 usign transfer pad. Pt had call light and all needs in reach before left. LIVESTOCK RANCHER/ OT discussed with pt and was open to going home vs rehab and asked if can call son for set up caregiver training for 1 step mgt has to get in home and pt agreed ok to call him. LIVESTOCK RANCHER and OT notified nursing and care mgt will call and set up CGT for tomorrow. LIVESTOCK RANCHER called, left message for son, spoke with main nursing station in case receives call. Will continue to assess progress. Gait Assessment Gait Gait Assistance Required: Minimum Assistance,Moderate Assistance,1 Person Assist Distance (Feet) 2 Able to Maintain Weight Bearing Status Yes During Gait Assistive Devices Assistive Device Gait Belt,Front Wheeled Walker Orthotic/Prosthetic Devices or Brace: No Gait Deviations General Gait Pattern Antalgic,Decreased Stride Length,Decreased Feet Clearance,Step-to Gait,Wide Based Gait Factors Limiting Gait Function Factors Limiting Gait Function Decreased Activity Tolerance, Decreased Strength,Difficulty Following Directions,Limited Range of Motion,Pain,Poor Balance,Poor Safety Awareness, Respiratory Distress Comments Gait Comments See mobility comments for details. Stair Climbing Assessment Comments Stair Climbing Comments unable to assess, will set up 1 step mgt w/ FWW tomorrow am with son. PT-Balance Assessment Sitting Balance and Reactions Static Sitting Balance Ability Good Dynamic Sitting Balance Ability Fair Standing Balance and Reactions Static Standing Balance Ability Fair Dynamic Standing Balance Ability Poor Device Used FWW M5 PT-IP Objective Assessments Start: 07/02/21 16:03 Freq: NEEDED Status: Active Protocol: Document 07/02/21 15:00 AB (Rec: 07/02/21 16:20 AB [id number]) Orientation Orientation/Cognition Level of Alertness Alert Orientation Name Language Function Ability Hard of Hearing Safety Awareness Decreased Safety Awareness Memory Description Short Term Impaired Gross Range of Motion Lower Extremity ROM Assessment Right Impaired Impairments R knee (+) crepitus with c/o pain with movement Strength Lower Extremity Strength Assessment Right Impaired Hip 4-/5 Knee 3+/5 Coordination Assessment Gross Coordination Gross Coordination WNL Muscle Tone Muscle Tone WNL Yes M6 PT-IP Treatment Start: 07/02/21 16:03 Freq: NEEDED Status: Active Protocol: Document 07/03/21 08:50 SP (Rec: 07/03/21 11:03 SP [id number]) Physical Therapy Treatment Education Education Provided Safety M7 PT-IP Assessment and Plan Start: 07/02/21 16:03 Freq: NEEDED Status: Active Protocol: Document 07/03/21 08:50 SP (Rec: 07/03/21 11:03 SP [id number]) PT Summary Assessment and Plan Potential Rehabilitation Potential Fair Status of Condition at Evaluation Evolving Summary Impairments Pain,ROM,Strength,Balance, Coordination,Sensation,Tone, Cognition,Bed Mobility, Transfers,Gait,Activity Tolerance Progress Towards Goals Progressing Toward Goals,Slow Progress due to Pain,Slow Progress due to Activity Tolerance Assessment Summary Pt required Min-Mod A x1 throughout tx with use of FWW transfers only ableto due to lack strength, decreased endurance, respiratory distress, requires rest breaks for recovery mid 90s SaO2 on 3L, less liters than pt stated uses at home. Will continue to assess progress and CGT tomorrow 1 step mgt. See notes section, concerning comments beginning of tx by pt . Goals Bed Mobility Goal Standby Assistance Transfer Goal Contact Guard Assistance,Front Wheeled Walker Gait Goal Contact Guard Assistance,Front Wheel Walker Gait Distance 25 Other Goals up/down 1 step using FWW min A Days to Meet Goals 5 Frequency of Treatment Frequency Of Treatment Once a Day Treatment Plan Physical Therapy Treatment Plan Bed Mobility Training,Transfer Training,Gait Training, Therapeutic Exercise,Balance Retraining,Discharge Planning, Hot or Cold Pack,Neuromuscular Re-ed,Coordination Retraining Other Recommendations and Next Treatment CGT tomorrow with son in am, Focus bed mob, transfers, gait w/ FWW, 1 step mgt for allowance safe DC home enterance. Precautions Other Precautions Covid Recommendations To Nursing Amount of Assist Needed 1 Person Assist Discharge Recommendations PT Discharge Recommendations Home with 24/7 Assist Available,Home Health,SNF Rehab,Home vs SNF Transportation Needs at Discharge Private Vehicle,Wheelchair/ Cabulance
--- NOTE | 2021-07-03 10:40 | P.PN_ITS ---
Subjective Subjective Date Patient Seen: 07/03/21 Interval history: Patient seems overall better today with respiratory status probably close to baseline with severe COPD. States appetite poor and not eating much. Did do a little better with PT and OT as well. Exam Vital Signs (past 8 hours): - 07/03/21 06:00 07/03/21 07:46 07/03/21 08:56 Temperature 98.7 F Pulse Rate 81 Respiratory Rate 16 Blood Pressure 167/78 H Pulse Oximetry 92 95 98 Oxygen Delivery Method Nasal Cannula Oxygen Flow Rate 3 Narrative Exam Narrative: General: Alert and cooperative in no acute distress Lungs: Diminished bilaterally with slight expiratory wheeze Extremities: No edema Neurological: Affect flat, speech normal Objective Labs Result Diagrams: 07/03/21 05:16 07/03/21 05:16 Labs: Laboratory Results - last 24 hr 07/03/21 07/03/21 05:16 05:16 WBC 4.4 L RBC 3.32 L Hgb 9.9 L Hct 29.3 L MCV 88.1 MCH 29.7 MCHC 33.7 RDW 14.0 Plt Count 195 Neut % (Auto) 81.4 H Lymph % (Auto) 9.6 L [place] % (Auto) 8.6 Eos % (Auto) 0.1 L Baso % (Auto) 0.3 Neut # (Auto) 3600 Lymph # (Auto) 400 L [place] # (Auto) 400 Eos # (Auto) 0 Baso # (Auto) 0 Sodium 132 L Potassium 4.4 Chloride 97 L Carbon Dioxide 37 H BUN 19 H Creatinine 0.62 Estimated GFR > 60.0 BUN/Creatinine Ratio 30.6 H Glucose 100 Calcium 8.2 L PFSH Medical History Atrial fibrillation COPD (chronic obstructive pulmonary disease) COVID Hyperlipidemia Hypertension Joint pain Kidney stones Trigger finger Surgical History History of hip replacement History of nephrolithotomy with removal of calculi Family History Mother Coronary artery disease Sister Heart problem Social History marital status: household members: family housing: house Smoking Status: Former smoker alcohol intake: former Assessment & Plan Assessment & Plan narrative: Ms. House is a 75W with PMH COPD with chronic respiratory failure, HTN, HL, who presents with generalized weakness. 1. Generalized weakness from dehydration, HALIMA, hyponatremia/hypokalemia, acute -suspect this is caused by dehydration from poor appetite from recent illness, along with diarrhea and continued HCTZ use -suspect hyponatremia is hypovolemic -hold HCTZ, discontinue on discharge -continue gentle IV fluids -replete potassium, corrected 2. Chronic hypoxic respiratory failure from COPD with recent COVID and pseudomonas infection -patient probably close to baseline -on 3L O2 at rest, 5L with activity chronically -has received steroids and abx for 7 days prior to admission -chest xray appears slightly worsened from previously -for now continue meropenem for pseudomonas pneumonia, and continue prednisone, potentially for slightly longer 10-14 day course 3. Paroxysmal atrial fibrillation -continue diltiazem -no anticoagulation given history of bleeding 4. Chronic iron deficiency anemia -continue home iron -advise patient to avoid Pepto-Bismol -doubt GI bleed, stools are black due to patient taking iron and recently Pepto- Bismol at home -slight drop in hemoglobin likely dilutional from IV hydration Patient with clinical improvement and hopefully can discharge home tomorrow. Requested son come in for caregiver teaching with PT and OT. CODE: Full Proxy: [place] Farfan, blayne Time Spent With Patient Critical Care time: I spent a total of [] minutes of critical care time on this patient's care today; this time is exclusive of procedural time. Quality VTE Deep Vein Thrombosis/Pulmonary Embolism Present on Admission: No
--- NOTE | 2021-07-03 11:48 | CM.DPC ---
DCP Cont: Per MD, pt continues to make some progress but not ready for d/c yet today and will check with pt on her depression. Per PT/OT, pt has made some significant progress and no longer 2PA but more like 1PA-CGA. PAT updated PT/OT and and RN that SNF is currently not an option for pt at d/c as return call from [facility] and the other 2 [facility] and [facility] that had COVID Units have recently closed down their COVID units. PT/OT state pt has been requesting to d/c home. SW called pt's son Michoacano to update him re the discussion yesterday about possible SNF at a COVID unit and informed him COVID unit is not currently an option at d/c and that pt has progressed with PT. Son is agreeable to CG training with PT tomorrow [place] 07/04/21 at 0900 to confirm safe d/c to home. Son is very agreeable with HH at d/c for additional support. No HH preference. PAT made HH referral to [facility] based on [facility] and faxed clinicals and completed F2F but just needs MD signature. Plan: PAT to follow closely for CG training with blayne Henriquez at 0900 with PT and MD to sign F2F for plan of home with son and new [facility] referral. DAYSI Rossi
[2021-07-03] MEDS: MEROPENEM 500 MG in SODIUM CHLORIDE 0.9% 100 ML 200 ML IV ×2 (11:51→20:09)
[2021-07-03] MEDS: SODIUM CHLORIDE 0.9% 1,000 ML 42 ML IV (12:52)
--- NOTE | 2021-07-03 15:29 | PC.NURSE ---
Day shift: Pt back to bed from chair. She remains 2ppl assist. She was unable to support her own weight at this time (1515). Call light in reach and bed alarm is on.
[2021-07-03] MEDS: CARBIDOPA-LEVODOPA 25/100 TABLET 1 EACH PO (20:11)
--- NOTE | 2021-07-03 21:59 | PC.NURSE ---
Patient is alert and oriented. Breath sounds diminished throughout with expiratory wheezing. Denies SOB at rest but is SOB still with exertion. On oxygen at 3L/min per NC with sat of 96%. States she has had an intermittent cough but sputum has been clear. HRR. Denies nausea. BT present and abdomen is soft; incontinent of black stool. Has been both continent and incontinent of urine. Needs assistance to reposition. Groins and perineum are reddened but without breakdown; barrier cream applied. Noted to have reddened/blanchable heels; floated on pillows. Has chronic back pain for which she takes Vicodin but no complaint of pain during assessment. Continues to be on Covid precautions. Fall risk score is high and bed alarm is activated.
[2021-07-04] VITALS (7 sets, daily range): BP systolic 125–188; BP diastolic 73–85; PULSE 72–85; RESP 16–20; TEMP 36.8–36.9; O2SAT 94–97
[2021-07-04] MEDS: MEROPENEM 500 MG in SODIUM CHLORIDE 0.9% 100 ML 200 ML IV ×2 (03:52→12:22)
[2021-07-04] MEDS: GABAPENTIN 300 MG CAPSULE PO ×3 (08:55→20:52)
[2021-07-04] MEDS: HYDROCODONE/ACET 5/325 TABLET 1 TAB PO ×3 (08:56→20:52)
[2021-07-04] MEDS: HEPARIN 5,000 UNIT/ML VIAL 5000 UNIT SUBCUT ×2 (08:56→20:52)
[2021-07-04] MEDS: MONTELUKAST 10 MG TABLET PO (08:56)
[2021-07-04] MEDS: CITALOPRAM 10 MG TABLET 20 MG PO (08:56)
[2021-07-04] MEDS: FERROUS SULFATE 325 MG TABLET PO (08:56)
[2021-07-04] MEDS: dilTIAZem CD 120 MG CAP PO (08:56)
[2021-07-04] MEDS: predniSONE 20 MG TABLET 40 MG PO (08:56)
[2021-07-04] MEDS: ALBUTEROL 2.5 MG/3 ML NEB (ADULT) INH ×2 (10:02→21:15)
[2021-07-04] MEDS: BUDESONIDE 0.5 MG/2 ML NEB INH ×2 (10:02→21:15)
--- NOTE | 2021-07-04 10:16 | PT.IPTN ---
Physical Therapy Treatment Note M2 PT-IP Current Condition Start: 07/02/21 16:03 Freq: NEEDED Status: Active Protocol: Document 07/04/21 10:15 BC (Rec: 07/04/21 10:16 [id number]) Physical Therapy Current Condition Current Condition Evaluation Date 07/02/21 Treatment Diagnosis Covid; acute kidney failure; difficulty in walking Onset Date 07/01/21 M3 PT-IP Subjective Start: 07/02/21 16:03 Freq: NEEDED Status: Active Protocol: Document 07/04/21 10:04 BC (Rec: 07/04/21 10:15 [id number]) Subjective Physical Therapy Visit Type Type Treatment Note Visit Start Time 08:55 Visit Stop Time 09:35 Total Visit Minutes 32 Physical Therapy Visit Comments Patient Comments Pt and son, [place]oacano, present for family training. Son concerned that she was d/c home for a few days and returned to hospital. He is hoping she can go to rehab/SNF. Patient Goals Pt does not vocalize specific goals but states she does not feel ready to go home. Therapy Pain Assessment Pain Present Pain Present Denied Pain M4 PT-IP Mobility and Gait Start: 07/02/21 16:03 Freq: NEEDED Status: Active Protocol: Document 07/04/21 10:04 BC (Rec: 07/04/21 10:15 [id number]) PT-Bed Mobility Assessment Rolling Level of Assist Contact Guard Assistance Supine to Sit Supine to Sit Minimal Assistance Scooting Scooting to Edge of Bed Minimal Assistance PT-Transfer Assessment Sit to and From Stand Sit to and from Stand Minimal Assistance,Moderate Assistance Equipment Transfer Assistive Device Gait Belt,Front Wheeled Walker Transfers Transfer Destination Bed,Bedside Commode Transfer Technique Stand Step Pivot Transfer Ability Level of Assist Minimal Assistance,Moderate Assistance Comments Mobility Comments Desaturation with transfer to BSC placed next to bed. On 3L seated EOB after supine->sit, O2 sat drops to 89%. Increased to 4L and O2 recovered after ~5 min to 94%. Stand pivot transfer to BSC, O2 sat ranging 88-92% during toileting and Pt independent pericare. Stood to walker with therapist providing add'l pericare ~45 sec standing then pivot transfer to EOB. O2 sat reducing to 77-79%. Nsng called. Increased O2 to 5L. Pt required ~10 min seated rest to recover to 96%. At that time, reduced O2 back to 4L and she remained at 94%. Cues throughout for breathing techniques. Pt is not accessively talking at all due to SOB. Gait Assessment Comments Gait Comments Pt unable to tolerate ambulation due to desaturation . Stair Climbing Assessment Comments Stair Climbing Comments Unable to tolerate stair training due to desaturation. PT-Balance Assessment Sitting Balance and Reactions Static Sitting Balance Ability Good Dynamic Sitting Balance Ability Good Standing Balance and Reactions Static Standing Balance Ability Good Dynamic Standing Balance Ability Fair Device Used FWW M5 PT-IP Objective Assessments Start: 07/02/21 16:03 Freq: NEEDED Status: Active Protocol: Document 07/02/21 15:00 AB (Rec: 07/02/21 16:20 AB [id number]) Orientation Orientation/Cognition Level of Alertness Alert Orientation Name Language Function Ability Hard of Hearing Safety Awareness Decreased Safety Awareness Memory Description Short Term Impaired Gross Range of Motion Lower Extremity ROM Assessment Right Impaired Impairments R knee (+) crepitus with c/o pain with movement Strength Lower Extremity Strength Assessment Right Impaired Hip 4-/5 Knee 3+/5 Coordination Assessment Gross Coordination Gross Coordination WNL Muscle Tone Muscle Tone WNL Yes M6 PT-IP Treatment Start: 07/02/21 16:03 Freq: NEEDED Status: Active Protocol: Document 07/04/21 10:04 BC (Rec: 07/04/21 10:15 [id number]) Physical Therapy Treatment Other Treatments Other Treatment Performed Spoke with son/Pt at length regarding DME needs for home would be a w/c and bedside commode. They have questions regarding d/c to SNF vs home with HHPT. Therapist reviewed what is in medical chart that due to COVID an accepting facility has not been identified. M7 PT-IP Assessment and Plan Start: 07/02/21 16:03 Freq: NEEDED Status: Active Protocol: Document 07/04/21 10:04 BC (Rec: 07/04/21 10:15 [id number]) PT Summary Assessment and Plan Potential Rehabilitation Potential Good Status of Condition at Evaluation Evolving Summary Impairments Strength,Balance,Bed Mobility, Transfers,Gait,Activity Tolerance Progress Towards Goals Slow Progress due to Medical Issues Assessment Summary Pt was not able to demonstrate measurable progress today. Her O2 saturation was limiting any ability to perform functional tasks. A stand pivot transfer took significant energy and required significant time to complete. She is not safe to ambulate or manage stairs at this time given her medical status. Attending physician present at end of session and therapist relayed O2 sat levels with minimal activity. Therapist also reviewed with ariannang Pt status today. Pt requested to remain sitting EOB (did not want to be in recliner or to return to lying down). Son in room. Nsng aware Pt is sitting EOB with son. Goals Bed Mobility Goal Standby Assistance Transfer Goal Contact Guard Assistance,Front Wheeled Walker Gait Goal Contact Guard Assistance,Front Wheel Walker Other Goals up/down 1 step using FWW min A Days to Meet Goals 5 Frequency of Treatment Frequency Of Treatment Once a Day Treatment Plan Physical Therapy Treatment Plan Bed Mobility Training,Transfer Training,Gait Training, Therapeutic Exercise,Balance Retraining,Discharge Planning, Hot or Cold Pack,Neuromuscular Re-ed,Coordination Retraining Other Recommendations and Next Treatment Pt was not able to demonstrate Focus a mobility level to safely ambulate or navigate stairs. Medical status limitation with desaturation occurring. Discharge Recommendations PT Discharge Recommendations Home with 24/7 Assist Available,Home Health,SNF Rehab,Home vs SNF Other Discharge Recommendations Recommend SNF due to physical mobility limitations. Uncertain of acceptance to SNF due to COVID + status. Equipment Needed for Home Before If she is to discharge home Discharge she will need extensive care for mobility and self care adls. She will require at minimum a w/c and BSC. Transportation Needs at Discharge Private Vehicle,Wheelchair/ Cabulance
[2021-07-04 12:00] LABS: COVID19 -Nasal RAPID POSITIVE (Negative)
--- NOTE | 2021-07-04 14:00 | P.PN_ITS ---
Subjective Subjective Date Patient Seen: 07/04/21 Interval history: Seven 5-year-old female with severe COPD, on home O2, recent COVID readmitted due to weakness, dehydration and difficulty breathing. Last admits sputum culture was positive for Pseudomonas and patient had been discharged on oral Cipro which was sensitive. Has been on meropenem this admission. Patient is generally weak with breathing not back to baseline which is not unexpected considering severe COPD. Repeat COVID today is positive still. O2 sat dropped to 70s working with PT. Exam Vital Signs (past 8 hours): - 07/04/21 07:00 07/04/21 10:24 07/04/21 12:32 Temperature 98.2 F Pulse Rate 79 82 85 Respiratory Rate 20 20 Blood Pressure 188/85 H 125/73 Pulse Oximetry 97 97 Oxygen Delivery Method Nasal Cannula Oxygen Flow Rate 3 Narrative Exam Narrative: General:? Alert and cooperative in no acute distress Lungs:? Breathing mildly labored, no crackles, no expiratory wheeze on today's exam Extremities:? No edema Neurological:? Affect flat, speech normal Objective Labs Result Diagrams: 07/03/21 05:16 07/03/21 05:16 Labs: Laboratory Results - last 24 hr 07/04/21 10:30 SARS-CoV-2 (PCR) Positive [facility] Medical History Atrial fibrillation COPD (chronic obstructive pulmonary disease) COVID Hyperlipidemia Hypertension Joint pain Kidney stones Trigger finger Surgical History History of hip replacement History of nephrolithotomy with removal of calculi Family History Mother Coronary artery disease Sister Heart problem Social History marital status: household members: family housing: house Smoking Status: Former smoker alcohol intake: former Assessment & Plan Assessment & Plan narrative: Ms. House is a 75W with PMH COPD with chronic respiratory failure, HTN, HL, who presents with generalized weakness. 1. Generalized weakness from dehydration, HALIMA, hyponatremia/hypokalemia, acute -suspect this is caused by dehydration from poor appetite from recent illness, along with diarrhea and continued HCTZ use -suspect hyponatremia is hypovolemic -hold HCTZ, discontinue on discharge -encourage p.o. fluid intake -replete potassium, corrected 2. Chronic hypoxic respiratory failure from COPD with recent COVID and pseudomonas infection -patient appears not quite to baseline which is not unexpected -on 3L O2 at rest, 5L with activity chronically -has received steroids and abx for 7 days prior to admission -chest xray appeared slightly worsened from previously -meropenem for pseudomonas pneumonia, on 07/04/2021 changed to oral Cipro 750 mg b.i.d. -continue prednisone, potentially for slightly longer 10-14 day course 3. Paroxysmal atrial fibrillation -continue diltiazem -no anticoagulation given history of bleeding 4. Chronic iron deficiency anemia -continue home iron -advise patient to avoid Pepto-Bismol -doubt GI bleed, stools are black due to patient taking iron and recently Pepto- Bismol at home -slight drop in hemoglobin likely dilutional from IV hydration Patient is expected to discharge home tomorrow. Her son is caregiver and agreeable to plan. CODE: Full Proxy: [place] Frafan, son Time Spent With Patient Critical Care time: I spent a total of [] minutes of critical care time on this patient's care today; this time is exclusive of procedural time. Quality VTE Deep Vein Thrombosis/Pulmonary Embolism Present on Admission: No
[2021-07-04] MEDS: CIPROFLOXACIN 250 MG TABLET 750 MG PO (18:04)
[2021-07-04] MEDS: CARBIDOPA-LEVODOPA 25/100 TABLET 1 EACH PO (20:52)
[2021-07-05] VITALS (7 sets, daily range): BP systolic 91–188; BP diastolic 50–78; PULSE 67–81; RESP 18–22; TEMP 36.6–36.7; O2SAT 96–98
[2021-07-05] MEDS: lisinopriL 10 MG TABLET PO (05:12)
[2021-07-05] MEDS: HYDROCODONE/ACET 5/325 TABLET 1 TAB PO (05:17)
[2021-07-05] MEDS: CIPROFLOXACIN 250 MG TABLET 750 MG PO (06:43)
[2021-07-05] MEDS: ALBUTEROL 2.5 MG/3 ML NEB (ADULT) INH (09:19)
[2021-07-05] MEDS: BUDESONIDE 0.5 MG/2 ML NEB INH (09:19)
[2021-07-05] MEDS: dilTIAZem CD 120 MG CAP PO (09:58)
[2021-07-05] MEDS: GABAPENTIN 300 MG CAPSULE PO (09:58)
[2021-07-05] MEDS: predniSONE 20 MG TABLET 40 MG PO (10:01)
[2021-07-05] MEDS: MONTELUKAST 10 MG TABLET PO (10:01)
[2021-07-05] MEDS: HEPARIN 5,000 UNIT/ML VIAL 5000 UNIT SUBCUT (10:03)
[2021-07-05] MEDS: FERROUS SULFATE 325 MG TABLET PO (10:04)
[2021-07-05] MEDS: CITALOPRAM 10 MG TABLET 20 MG PO (10:05)
--- NOTE | 2021-07-05 11:21 | CM.DPC ---
Addendum entered by Ana Loya R.N. 07/05/21 14:09: EVELIA spoke with patients son [place] who is planning on picking up his mother at 3PM when she DC and provide her transport home. CM will send signed F[facility] to [facility] alone with DC summary for there review. CM gave patients son [facility] phone number so he can follow up with them in a day or so if he has not heard from them. Ana Loya RNhousehold cook Original Note: DCP continued: EVELIA spoke with the patients son Krunal today and explained to him that the patient wont be able to go to SNF since she is COVID+ and currently there are no SNFs taking COVID + patients. EVELIA also explained that CM will discuss when DC will happen in AM rounds. Patient stated she would like to go home. During AM rounds Dr. Cervantes stated she is ready for DC home today. PT stated she is ambulating better. CM attempted to call patients son back and let him know about the patients DC home. CM was not able to reach him and was not able to leave a since the phone didn't go to voice mail. EVELIA will continue to call to work on updating the son of the patients DC home. EVELIA also spoke with Dr. Cervantes and he signed F2F for patients HH referral to [facility]. Ana loya RNhousehold cook
--- NOTE | 2021-07-05 12:00 | PM.DS.1 ---
History of Present Illness History of Present Illness Chief complaint: Dizzy, black stools Narrative: Ms. House is a 75W with PMH COPD on oxygen 3-5L at home, atrial fibrillation, Parkinson's, HTN, HL, previous GI bleeding and recent admission to the hospital for COVID and pseudomonas infection and COPD exacerbation who presents to the hospital with weakness. She was discharged on 06/27 after treatment with steroids for COPD exacerbation and discharged with levofloxacin for Pseudomonas infection. Per ED note she has not noted any changes to her respiratory status, and to me she appears largely unchanged from prior discharge, but she is complaining of mild shortness of breath, but it is difficult to understand if this is worse than her chronic shortness of breath. She has no fevers/chills, no chest pain, no phlegm production. She actually returns to the hospital feeling weak and dizzy and having difficulty ambulating. She feels globally fatigued. She has had poor appetite since discharge, had episodes of diarrhea, and continued to take her HCTZ at home. She noted black stools but takes iron and pepto-bismol, she had guaiac negative stools last admission. In the ED workup was done, vitals notable for being afebrile, tachycardic in 110s, blood pressure 100s/50s. Labs notable for WBC 7.7, hgb 10.6, Na 125, k 2.6, BUN 22, creatinine 1.48. She remained COVID positive. Stools were guaiac negative. UA showed trace leuk esterase. Chest xray showed increased retricular opacities in the left lung. She was admitted for further treatment. Discharge Providers Provider Date of admission: 07/01/21 22:07 Discharge Date: 07/05/21 Primary care physician: Citlali Wei MD Consults: 07/01/21 22:55 Consult to Occupational Therapy Evaluate & Treat Comment: Physician Instructions: Evaluate and treat Consult to Physical Therapy Evaluate & Treat Comment: Physician Instructions: Evaluate and Treat 07/01/21 23:33 Consult to Respiratory Therapy Evaluate & Treat Comment: Physician Instructions: Evaluate and treat Discharge provider: João Cervantes MD Summary Hospital Course Discharge Diagnosis: 1. Dehydration, weakness, HALIMA, Hyponatremia, Hypokalemia 2. Chronic hypoxic respiratory failure from COPD, with recent COVID and pseudomonas pneumonia infection 3. Paroxysmal atrial fibrillation 4. Chronic iron deficiency anemia Hospital Course: Ms. House was readmitted with fatigue. Initially there was question of GI bleed, however, stools were guaiac negative, and it was thought her dark stools were from pepto-bismol/iron. However she was notably dehydrated from poor appetite and diarrhea and continued HCTZ use during this. She was notably hyponatremic, hypokalemic, and had HALIMA. This improved with IV fluids and stopping her HCTZ. This should not be resumed. In addition, she continued to have shortness of breath, she has known severe COPD, uses 3L at rest, and 5L with activity, and was using 3-4L of oxygen in the hospital. She had her course of antibiotics extended for a total planned 14 day course ofr pseudomonas pneumonia. She also was prescribed a long steroid taper over the next 4 weeks, and should follow closely with her PCP within the next week. Exam Vital Signs (past 8 hours): Oxygen Delivery Method Nasal Cannula Oxygen Flow Rate 4 Narrative Exam Narrative: General:? Alert and cooperative in no acute distress Lungs:? Breathing mildly labored, no crackles, no expiratory wheeze on today's exam Extremities:? No edema Neurological:? Affect flat, speech normal Objective Labs Result Diagrams: 07/03/21 05:16 07/03/21 05:16 [facility] Medical History Atrial fibrillation COPD (chronic obstructive pulmonary disease) COVID Hyperlipidemia Hypertension Joint pain Kidney stones Trigger finger Surgical History History of hip replacement History of nephrolithotomy with removal of calculi Family History Mother Coronary artery disease Sister Heart problem Social History marital status: household members: family housing: house Smoking Status: Former smoker alcohol intake: former Discharge Plan Discharge Plan Patient Disposition: Home Health Service Provider Discharge Comment: Ms. House came to the hospital with weakness. She was dehydrated likely from her blood pressure medication HCTZ (hydrochlorothiazine). This was stopped, and she should not taken this anymore. Her dehydration improved. She was continued on antibiotics and prednsione for pneumonia and COPD. She should complete a few more days of antibiotics. She was recommended to have a prednisone slow taper, where she takes slightly less prednisone each for a month. Discharge orders & Medications Prescriptions: New ferrous sulfate 325 mg (65 mg iron) Tablet 325 mg PO DAILY Qty: 30 0RF prednisone 10 mg tablet 10 mg PO DAILY Qty: 70 0RF Rx Instructions: Taper: 40mg daily for 1 week, 30mg daily for one week, 20mg daily for one week, 10mg daily for one week, then stop ciprofloxacin HCl 750 mg tablet 750 mg PO BID Qty: 5 0RF Continued atorvastatin 20 mg tablet 20 mg PO DAILY 0RF citalopram 20 mg tablet 20 mg PO DAILY 0RF hydrocodone-acetaminophen 7.5-325 mg tablet 1 tab PO Q4HR PRN (Reason: Pain, Severe) 0RF Label Comments: TAKE 1 TABLET BY MOUTH EVERY 4 TO 6 HOURS NEEDED gabapentin 300 mg capsule 300 mg PO TID 0RF diltiazem HCl 120 mg capsule,extended release 24hr 120 mg PO DAILY 0RF Label Comments: Pt confirmed that she takes this med and this dose this AM. 07/03/21 montelukast 10 mg tablet 10 mg PO DAILY 0RF albuterol sulfate [ProAir HFA] 90 mcg/actuation HFA aerosol inhaler 90 mcg INHALATION PRN PRN (Reason: Bronchodilation) 0RF fluticasone propionate 50 mcg/actuation spray,suspension 50 mcg INTRANASAL BID 0RF ibandronate 150 mg tablet 150 mg PO USEASDIRECTD 0RF levalbuterol HCl 1.25 mg/3 mL Solution For Nebulization 1.25 mg INHALATION QID 0RF fluticasone propion-salmeterol [Advair Diskus] 250-50 mcg/dose Blister With Device 1 inh INHALATION BID 0RF carbidopa-levodopa 25-100 mg Tablet 1 tab PO BEDTIME 0RF Discontinued hydrochlorothiazide 12.5 mg Capsule 12.5 mg PO DAILY 0RF Follow up/Referrals: Ctilali Wei MD [Primary Care Provider] - Visit Report/Discharge Packet Instructions: DI for Dehydration -- Adult, How to Prevent Falls, DI for COVID-19 (Suspected or Confirmed ) Discharge Data Primary Care Provider: Citlali Wei Quality VTE Deep Vein Thrombosis/Pulmonary Embolism Present on Admission: No
--- NOTE | 2021-07-05 12:21 | OT.IPNOTE ---
Pt is planned for discharge home today. Pt with poor endurance at this time. Discussed with P.T., CM, and nursing and agreed to hold therapy today to conserve energy for discharge home. No OT services rendered.
--- NOTE | 2021-07-05 12:45 | PT-IP ANOTE ---
Discussed pt with RN and OT. All in agreement that since functional capacity remains low, pt would be best served by conserving energy for discharge today. Caregiver training was exhaustive and completed during Monday treatment. Pt not seen by PT.
--- NOTE | 2021-07-05 15:10 | CM.DPNOTE ---
Faxed home health referral packet to [facility] per Ana and received fax conf. Gali Canales CM Assist.
--- NOTE | 2021-07-05 16:06 | PC.NURSE ---
Addendum entered by Purvi Rico R.N. 07/05/21 16:10: Previous note written for dc time of 1522 Original Note: Patient d/c instructions reviewed with patient who verbalizes understanding. IV d/c'd with cath tip intact,minimal bleeding controlled with gently pressure and gauze/tape. Patient taken down to son and private vehicle in wheelchair with home O2 on via nasal cannula at 4 liters. Transfers to passenger seat safely with son's assist.
== END 2021-07-05 15:22 | disposition home health service (06) | DRG 682 ==
LOC: ED 22:03 → AC 07-02 07:56
PROVIDERS: Internal Medicine; Admitting Provider Internal Medicine; Emergency Provider Emergency Medicine; PCP Internal Medicine; Referring Provider Emergency Medicine; Visit Provider Internal Medicine
DX: N17.9 Acute kidney failure, unspecified (principal); J15.1 Pneumonia due to Pseudomonas; U07.1 COVID-19; E87.1 Hypo-osmolality and hyponatremia; J96.11 Chronic respiratory failure with hypoxia; E86.0 Dehydration; E87.6 Hypokalemia; J44.9 Chronic obstructive pulmonary disease, unspecified; I48.0 Paroxysmal atrial fibrillation; D50.9 Iron deficiency anemia, unspecified; E78.5 Hyperlipidemia, unspecified; I10 Essential (primary) hypertension; G20 Parkinson's disease; Z87.891 Personal history of nicotine dependence; Z99.81 Dependence on supplemental oxygen
CPT/HCPCS: 36415; 71045; 80048; 80053; 81001; 83605; 83690; 83735; 83880; 84100; 84145; 84484; 85025; 85379; 86850; 86900; 86901; 87040; 87086; 87633; 87635; 93005; 94640; 94760; 97162; 97166; 97530; 97535; 99285; C9803; J1644; J2185; J7613

== ENCOUNTER 2021-07-08 19:31 | Emergency (ER) | payer MEDICARE, OTHER, SELFPAY ==
[2021-07-01 23:34] VITALS: BMI 24.0
[2021-07-08] VITALS (8 sets, daily range): BP systolic 94–128; BP diastolic 56–98; PULSE 112–134; RESP 20–36; TEMP 37.3; O2SAT 90–99; BMI 24.9
--- NOTE | 2021-07-08 20:02 | PC.NURSE ---
Pt presents DNR including documentation for NO nutrition, NO fluids, and NO resuscitation. Pt declines IV or needle pokes, discussed w/ pt indications for tests and she further declines treatment, states she wished to stay home and not come with EMS. Pt wishes respected, Dr. Montaño notified.
--- NOTE | 2021-07-08 20:04 | PC.NURSE ---
Copy of pt's DNR made and in the chart
[2021-07-08 21:05] LABS: Appearance Urine UA CLEAR; Bilirubin Urine UA NEGATIVE (NEGATIVE); Color Urine UA YELLOW; Glucose Urine UA NEGATIVE (Negative); Ketones Urine UA TRACE (NEGATIVE); Leukocyte Esterase Urine UA TRACE (NEGATIVE); Nitrite Urine UA NEGATIVE (Negative); Occult Blood Urine UA NEGATIVE (Negative); Protein Urine UA NEGATIVE (Negative); Specific Gravity Urine UA >=1.030 (1.000-1.035); Urobilinogen Urine UA 0.2 E.U./dL (0.2)
[2021-07-08 21:18] LABS: Amorphous Sediment Urine 2+; Bacteria Urine None Seen; Culture Indicated Urine Specimen Cultured; Granular Casts Urine 0-1/LPF; RBC Urine 0-1/HPF (0-5/HPF); WBC Urine 0-1/HPF (0-5/HPF)
--- NOTE | 2021-07-08 21:42 | ED_ITS ---
HPI - General Adult General Chief complaint: Dizziness Stated complaint: COVID+, tremors Time Seen by Provider: 07/08/21 19:59 Source: patient and EMS Mode of arrival: EMS History of Present Illness HPI narrative: Woman with COPD currently on 4 L of oxygen at home, atrial fibrillation, Parkinson's disease, hypertension, hyperlipidemia who was discharged from the hospital after being admitted on July 01 through July 05 for COVID. She currently is living with her son and [id number]. She is DNR, comfort measures and is absolutely clear about this. Her son brought her in this evening because he was concerned about increasing tremors. She has declined any additional workup including blood draw and simply wants to be home. She would prefer to at this time she is not interested in hospice. She states she is taking all of her medication as prescribed including her carbidopa levodopa and diltiazem. Related Data Home Medications Medication Instructions Recorded Confirmed albuterol sulfate 90 mcg/actuation 90 mcg INHALATION PRN PRN 11/07/20 07/01/21 aerosol inhaler (ProAir HFA) atorvastatin 20 mg tablet 20 mg PO DAILY 11/07/20 07/01/21 citalopram 20 mg tablet 20 mg PO DAILY 11/07/20 07/01/21 diltiazem HCl 120 mg 120 mg PO DAILY 11/07/20 07/03/21 capsule,extended release 24 hr fluticasone propionate 50 50 mcg INTRANASAL BID 11/07/20 07/01/21 mcg/actuation nasal spray,suspension gabapentin 300 mg capsule 300 mg PO TID 11/07/20 07/01/21 hydrocodone 7.5 mg-acetaminophen 1 tab PO Q4HR PRN 11/07/20 07/01/21 325 mg tablet ibandronate 150 mg tablet 150 mg PO USEASDIRECTD 11/07/20 07/01/21 montelukast 10 mg tablet 10 mg PO DAILY 11/07/20 07/01/21 levalbuterol HCl 1.25 mg/3 mL 1.25 mg INHALATION QID 02/02/21 07/01/21 solution for nebulization carbidopa 25 mg-levodopa 100 mg 1 tab PO BEDTIME 02/23/21 07/01/21 tablet fluticasone 250 mcg-salmeterol 50 1 inh INHALATION BID 02/23/21 07/01/21 mcg/dose blistr powdr for inhalation (Advair Diskus) Previous Rx's Medication Instructions Recorded ciprofloxacin HCl 750 mg tablet 750 mg PO BID #5 tab 07/05/21 ferrous sulfate 325 mg (65 mg 325 mg PO DAILY #30 tab 07/05/21 iron) tablet prednisone 10 mg tablet 10 mg PO DAILY #70 tab 07/05/21 carbidopa 25 mg-levodopa 100 mg 1 tab PO BID #60 tab 07/08/21 tablet Allergies Allergy/AdvReac Type Severity Reaction Status Date / Time No Known Drug Allergies Allergy Verified 07/01/21 19:15 Review of Systems Review of Systems Narrative: Patient declines answering any additional review of systems questions beyond prakash t discussed in the HPI Patient History Medical History Atrial fibrillation COPD (chronic obstructive pulmonary disease) COVID Hyperlipidemia Hypertension Joint pain Kidney stones Trigger finger Surgical History History of hip replacement History of nephrolithotomy with removal of calculi Family History Mother Coronary artery disease Sister Heart problem Social History marital status: household members: family housing: house Smoking Status: Former smoker alcohol intake: former Smoking Status: Former smoker alcohol intake frequency: 0-2 drinks per day Substance Use Type: does not use Exam Initial Vital Signs Initial Vital Signs: Vital Signs Temperature 99.2 F 07/08/21 19:48 Pulse Rate 134 H 07/08/21 19:48 Respiratory Rate 25 H 07/08/21 19:48 Blood Pressure 97/64 07/08/21 19:48 Pulse Oximetry 98 07/08/21 19:48 General: Disheveled, frail able speak in full sentences without respiratory distress significant parkinsonian full body tremor HEENT: Moist mucous membranes, normal sclera with reactive pupils, Neck: No JVD, supple Respiratory: Lungs scattered wheeze but otherwise Full and symmetrical air movement Cardiac: Tachycardic and irregular no murmurs no bruits Abdomen: Soft, nontender, good bowel tones, no flank pain Skin: Pale, thin, no rashes Neurologic: Globally weak, significant cogwheeling rigidity and total body tremors consistent with Parkinson's disease Extremities: No trauma, no lower extremity edema Psych: Appears to be entirely cognitively appropriate at the time of our exam. She very clearly states that she wants no additional medical treatment making good eye contact and reiterates this in multiple different ways. Course Orders Ordered: ED Orders 07/08/21 20:50 Urinalysis and Microscopic Stat Urine Culture Stat Discontinued Medications Carbidopa/Levodopa (Carbidopa-Levodopa 25/100 Tablet) 1 each PO NOW ONE Stop: 07/08/21 21:54 Diltiazem HCl (Diltiazem Cd 120 Mg Cap) 120 mg PO NOW ONE Stop: 07/08/21 21:54 Vital Signs Vital signs: Vital Signs - 8 hr 07/08/21 19:48 07/08/21 20:00 07/08/21 21:01 Temperature 99.2 F Pulse Rate 134 H 134 H 120 H Respiratory Rate 25 H 26 H 20 Blood Pressure 97/64 94/56 L 121/98 H Pulse Oximetry 98 97 98 07/08/21 21:15 07/08/21 21:30 Temperature Pulse Rate 127 H 125 H Respiratory Rate 36 H Blood Pressure 128/81 Pulse Oximetry 98 99 Medical Decision Making Lab Data Labs: Lab Results 07/08/21 Range/Units 20:50 Urine Color Yellow Urine Appearance Clear Urine pH 5.0 (4.5-8.0) Ur Specific [place] >=1.030 H (1.000-1.035) Urine Protein Negative (Negative) Urine Glucose (UA) Negative (Negative) g/dL Urine Ketones Trace H (NEGATIVE) Urine Occult Blood Negative (Negative) Urine Nitrate Negative (Negative) Urine Bilirubin Negative (NEGATIVE) Urine Urobilinogen 0.2 (0.2) E.U./dL Ur Leukocyte Esterase Trace H (NEGATIVE) Urine RBC 0-1/hpf (0-5/HPF) Urine WBC 0-1/hpf (0-5/HPF) Amorphous Sediment 2+ Urine Bacteria None seen (None) Granular Casts 0-1/lpf (None) Ur Culture Indicated? Specimen cultured MDM Narrative Medical decision making narrative: 75-year-old woman with multiple end-stage diseases with recent hospitalization for COVID who is getting weaker at home. On discharge she apparently was able to walk 1-2 steps and now is not even able to get out of bed. her son takes outstanding care of her and has been giving all of her medications. She has been on 4 L of oxygen even prior to admission to the hospital for COVID. Oxygen saturations are in the upper 90s with her 4 L currently. She has significant increase in her parkinsonian tremor will increase her carbidopa levodopa to twice a day. Following her wishes no additional workup aside from a urinalysis was done in the emergency department today. She does not have a bladder infection. All of these findings including lack of workup are reviewed with her son who was expecting similar discussion. Sounds like declining medical care in intervention has been a family trait with the recent loss of his father a brother and a sister for similar reasons within the last 2-3 years. He did have questions about involving hospice which I believe would be very appropriate but the patient herself has absolutely no interest in. He has home physical therapy coming out tomorrow as arranged from recent inpatient hospital stay and home health nurse coming out in 4 days. Her son will discuss hospice versus continued home health. Discharge Plan Departure Patient Disposition: Home Clinical Impression: Parkinson disease COPD (chronic obstructive pulmonary disease) Qualifiers: COPD type: emphysema Emphysema type: unspecified Qualified Code(s): J43.9 - Emphysema, unspecified Atrial fibrillation Qualifiers: Atrial fibrillation type: paroxysmal Qualified Code(s): I48.0 - Paroxysmal atrial fibrillation Activity Restrictions/Additional Instructions: Thank you for coming in today Do have some chronic medical issues that would likely preclude be managed a bit better by an outpatient doctor. I fully appreciate your desire to have no additional testing or studies done. At this time, your oxygen level is 97% on 4 L of oxygen. The tremor appears to be your Parkinson's disease and you do need to continue taking your carbidopa levodopa and I would recommend increasing this from just bedtime to morning and evening. A new prescription was electronically transmitted to [facility] for you to order picker so that you do not run out of medications early. You do need to make sure that you are using all of your medications as prescribed Please schedule a follow-up appointment with your primary care doctor. Prescriptions: New carbidopa-levodopa 25-100 mg tablet 1 tab PO BID Qty: 60 0RF No Action atorvastatin 20 mg tablet 20 mg PO DAILY 0RF citalopram 20 mg tablet 20 mg PO DAILY 0RF hydrocodone-acetaminophen 7.5-325 mg tablet 1 tab PO Q4HR PRN (Reason: Pain, Severe) 0RF Label Comments: TAKE 1 TABLET BY MOUTH EVERY 4 TO 6 HOURS NEEDED gabapentin 300 mg capsule 300 mg PO TID 0RF diltiazem HCl 120 mg capsule,extended release 24hr 120 mg PO DAILY 0RF Label Comments: Pt confirmed that she takes this med and this dose this AM. 07/03/21 montelukast 10 mg tablet 10 mg PO DAILY 0RF albuterol sulfate [ProAir HFA] 90 mcg/actuation HFA aerosol inhaler 90 mcg INHALATION PRN PRN (Reason: Bronchodilation) 0RF fluticasone propionate 50 mcg/actuation spray,suspension 50 mcg INTRANASAL BID 0RF ibandronate 150 mg tablet 150 mg PO USEASDIRECTD 0RF levalbuterol HCl 1.25 mg/3 mL Solution For Nebulization 1.25 mg INHALATION QID 0RF fluticasone propion-salmeterol [Advair Diskus] 250-50 mcg/dose Blister With Device 1 inh INHALATION BID 0RF carbidopa-levodopa 25-100 mg Tablet 1 tab PO BEDTIME 0RF ferrous sulfate 325 mg (65 mg iron) Tablet 325 mg PO DAILY Qty: 30 0RF prednisone 10 mg tablet 10 mg PO DAILY Qty: 70 0RF Rx Instructions: Taper: 40mg daily for 1 week, 30mg daily for one week, 20mg daily for one week, 10mg daily for one week, then stop ciprofloxacin HCl 750 mg tablet 750 mg PO BID Qty: 5 0RF Referrals: Citlali Wei MD [Primary Care Provider] -
[2021-07-08] MEDS: CARBIDOPA-LEVODOPA 25/100 TABLET 1 EACH PO (22:12)
[2021-07-08] MEDS: dilTIAZem CD 120 MG CAP PO (22:12)
== END 2021-07-08 23:18 | disposition home or self-care (01) ==
PROVIDERS: Emergency Provider Emergency Medicine; PCP Internal Medicine
DX: G20 Parkinson's disease (principal); J43.9 Emphysema, unspecified; I48.0 Paroxysmal atrial fibrillation; Z66 Do not resuscitate; Z87.891 Personal history of nicotine dependence; Z99.81 Dependence on supplemental oxygen
CPT/HCPCS: 81001; 87086; 99283; 99284

== ENCOUNTER → 2021-12-02 09:18 | Outpatient (CLI) | payer MEDICARE, OTHER, SELFPAY ==
[2021-07-01 23:34] VITALS: BMI 24.0
--- NOTE | 2021-12-02 | DI.ECHO.S_ITS ---
[facility]---------+ [facility] +---------+ : : [address] : : : : [id number] : : : : Phone: [phone] Echocardiogram Report + + :Name: DAYNA JAY Study Date: 12/02/2021 Height: 64 in : :[facility] ReadingLocation: Weight: 130 lb : : Gender: Female BSA: 1.6 m2 : :: 1945 Age: 76 yrs BP: 116/88 mmHg: :Reason For Study: Atrial fibrillation : :Ordering Physician: : :CHRISTIE RILEY Performed By: Michael Camarillo : :Referring: CHRISTIE RILEY : + + Interpretation Summary Afib with RVR; heart rate is 100-103 bpm. Normal LV size and wall thickness; normal wall motion and LV systolic function. EF is 65-70%. Normal chamber sizes. No significant valvular abnormalities. The caveat is that this is a technically difficult study and aortic valve leaflets in particular are not well seen. Based on CW Doppler, no significant aortic stenosis. Compared to prior study 08/26/2020 heart rate is up from 70-80 bpm to 100-103 bpm. Procedure: A two-dimensional transthoracic echocardiogram with color flow and Doppler was performed. The study quality was technically difficult. Comparison is made with the echocardiogram of 08/26/2020. Left Ventricle: The left ventricle is normal in size and wall thickness. Left ventricular systolic function is normal. The ejection fraction is estimated to be 65-70%. There are no focal wall motion abnormalities. Diastolic function could not be accurately assessed due to atrial fibrillation. Right Ventricle: The right ventricle is normal size. Right ventricular systolic function is mild to moderately reduced. Atria: Both atria are normal in size. The interatrial septum grossly appears intact with no obvious evidence for an atrial septal defect. Mitral Valve: The mitral valve leaflets are mildly calcified. There is mild mitral regurgitation. Aortic Valve: The aortic valve is not well visualized. There is no aortic valve stenosis. No aortic regurgitation is present. Tricuspid Valve: The tricuspid valve is normal in structure and function. No tricuspid regurgitation. Pulmonary artery pressures cannot be estimated because of the lack of a measurable TR jet velocity. Pulmonic Valve: The pulmonic valve is not well visualized. Great Vessels: The aortic root is not well visualized. The ascending aorta could not be visualized. The IVC is of normal diameter and collapses greater than 50% with a sniff. This suggests a low right atrial pressure of 3 mm Hg. Pericardium/ Pleura There is no pericardial effusion. There is no pleural effusion. MMode/2D Measurements & Calculations LVIDd: 3.3 cm LA A2 area: 16.9 cm2 LVIDs: 2.1 cm LA A4 area: 15.1 cm2 FS: 36.4 % LA length (vol): 5.7 cm IVSd: 0.70 cm LA vol: 38.1 ml LVPWd: 1.0 cm LA vol index: 23.4 ml/m2 LV guzman. diameter/BSA (cm/m^2): 2.0 LV sys. diameter/BSA (cm/m^2): 1.3 RA long axis: 5.2 cm TAPSE_phl: 1.5 cm Doppler Measurements & Calculations Ao V2 max: 178.0 cm/sec LVOT Max René: 75.7 cm/sec Ao V2 mean: 129.0 cm/sec LV V1 max P.3 mmHg Ao max P.0 mmHg LV V1 VTI: 14.4 cm Ao mean P.0 mmHg sev ratio: 0.48 Ao V2 VTI: 30.1 cm AV VR_phl: 0.43 Electronically signed by: Christie Riley M.D. on Reading Physician:12/06/2021 04:05 PM
== END ==
PROVIDERS: PCP Internal Medicine; Referring Provider Internal Medicine; Visit Provider Internal Medicine
DX: I48.91 Unspecified atrial fibrillation (principal)
CPT/HCPCS: 93306

== ENCOUNTER 2022-01-16 07:03 | Emergency (ER) | payer MEDICARE, OTHER, SELFPAY ==
[2021-07-01 23:34] VITALS: BMI 24.0
[2022-01-16] VITALS (15 sets, daily range): BP systolic 120–185; BP diastolic 61–95; PULSE 67–123; RESP 8–63; TEMP 36.6; O2SAT 92–100; BMI 25.4
--- NOTE | 2022-01-16 07:41 | DI.RAD.S_ITS ---
PROCEDURE: XR CHEST 1V INDICATIONS: chest pain TECHNIQUE: One view of the chest was acquired. COMPARISON: [facility], CR, XR CHEST 1V, 07/01/2021, 19:56. [facility], CR, XR CHEST 1V, 06/24/2021, 5:04. FINDINGS: Surgical changes and devices: None. Lungs and pleura: Similar senescent lung markings, with probable scarring. No new consolidation or pneumothorax. Mediastinum: Similar cardiomediastinal contour. Bones and chest wall: No suspicious bony lesions. Overlying soft tissues appear unremarkable. IMPRESSION: Compared to 07/01/2021, similar senescent lung markings. No new dense consolidation. No pneumothorax. Similar cardiomediastinal contour. Dictated by: Lucien Villalobos M.D. on 01/16/2022 at 7:55 Approved by: Lucien Villalobos M.D. on 01/16/2022 at 7:56
[2022-01-16 08:08] LABS: Add Manual Diff / Slide Review NO; Basophils Absolute Auto 0 /uL (0-100); Basophils Percent Auto 0.4 % (0-2); Eosinophils Absolute Auto 100 /uL (0-450); Eosinophils Percent Auto 2.4 % (2-4); Hematocrit 32.4 % (36-46); Hemoglobin 10.6 g/dL (12.0-16.0); Lymphocytes Absolute Auto 1200 /uL (1100-4500); Lymphocytes Percent Auto 20.4 % (25-40); Mean Corpuscular HGB Conc 32.7 % (30-36); Mean Corpuscular Hemoglobin 29.1 PG (26-34); Mean Corpuscular Volume 88.9 fL (80-100); Monocytes Absolute Auto 700 /uL (0-900); Monocytes Percent Auto 12.3 % (3-14); Neutrophils Absolute Auto 3900 /uL (1500-7000); Neutrophils Percent Auto 64.5 % (50-75); Platelet Count 374 X10^3/uL (150-400); Red Blood Cell Count 3.65 X10^6/uL (4.0-5.2)
[2022-01-16 08:12] LABS: Alanine Aminotransferase 24 IU/L (<35); Albumin 2.7 g/dL (3.5-5.0); Albumin Globulin Ratio 0.9 (1.0-2.8); Alkaline Phosphatase 162 U/L (38-126); Aspartate Aminotransferase 50 IU/L (14-36); BUN Creatinine Ratio 9.6 (6-22); Blood Urea Nitrogen 7 mg/dL (7-17); Carbon Dioxide 32 mmol/L (22-32); Chloride 98 mmol/L (98-107); Creatine Kinase 105 U/L (30-135); Estimated Glomerular Filt Rate > 60 mL/min (>60); Glucose 83 mg/dL (80-110); HEMOLYSIS < 15 (0-50); Lipase 30 U/L (23-300); Magnesium 1.8 mg/dL (1.6-2.3); Sodium 135 mmol/L (137-145); Total Protein 5.7 g/dL (6.3-8.2)
[2022-01-16 08:23] LABS: Troponin I 0.025 ng/mL (0.01-0.034)
[2022-01-16 08:27] LABS: CKMB % Relative Index 2.2 % (1.5-5.0); Creatine Kinase MB 2.32 ng/mL (<2.37)
--- NOTE | 2022-01-16 08:32 | ED_ITS ---
HPI - General Adult General Chief complaint: Weakness Stated complaint: loss of appetite ,bloating ,sleepy since Time Seen by Provider: 01/16/22 07:56 Source: patient and family Mode of arrival: Wheelchair Limitations: no limitations History of Present Illness HPI narrative: This is a 76-year-old female with COPD currently on 2 L O2 at home, atrial fibrillation, Parkinson's disease, hypertension, dyslipidemia who has been recommended for pacemaker but patient has refused thus far. Patient is living with her son and [id number], she is DNR and expresses interest in hospice today. Patient states she feels like she is nearing the end of her life and has reached the point that she is ready to . She and her son both become tearful during this conversation. They had hospice for her at home and are open to it but are not sure how to go through this process. They present today becau se of decreased appetite, her arms and legs have become increasingly swollen and son states legs are often swollen but arms are not typically. He states she is taken about 52 oz of water in the past 3 days she is a very minimal solids in the past 3 days. She is had some increase in her confusion at home and took off all of her oxygen tubing the other day but did not know why she is had some dizz iness, no chest pain she states she is always short of breath it has been worsening over time denies any abdominal back or flank pain. Denies fevers chills no cold cough or congestion that is new but does have a baseline cough. She is had very minimal stool output just some small palate. Patient son states her urine has been dark yellow and quite smelly. She met with her senior benefits analyst who recommend pacemaker she refused but does have a follow-up appointment by phone to discuss it again to make a final decision. Patient her son know her last day she was hospitalized for a week pretty much lost her ability to really ambulate regularly and has continued to be debilitated since then although she did go through PT. Related Data Home Medications Medication Instructions Recorded Confirmed albuterol sulfate 90 mcg/actuation 90 mcg inhalation PRN PRN 11/07/20 07/01/21 aerosol inhaler (ProAir HFA) Bronchodilation atorvastatin 20 mg tablet 20 mg PO DAILY 11/07/20 07/01/21 citalopram 20 mg tablet 20 mg PO DAILY 11/07/20 07/01/21 diltiazem HCl 120 mg 120 mg PO DAILY 11/07/20 07/03/21 capsule,extended release 24 hr fluticasone propionate 50 50 mcg intranasal BID 11/07/20 07/01/21 mcg/actuation nasal spray,suspension gabapentin 300 mg capsule 300 mg PO TID 11/07/20 07/01/21 hydrocodone 7.5 mg-acetaminophen 1 tab PO Q4HR PRN Pain, Severe 11/07/20 07/01/21 325 mg tablet ibandronate 150 mg tablet 150 mg PO USEASDIRECTD 11/07/20 07/01/21 montelukast 10 mg tablet 10 mg PO DAILY 11/07/20 07/01/21 levalbuterol HCl 1.25 mg/3 mL 1.25 mg inhalation QID 02/02/21 07/01/21 solution for nebulization carbidopa 25 mg-levodopa 100 mg 1 tab PO BEDTIME 02/23/21 07/01/21 tablet fluticasone 250 mcg-salmeterol 50 1 inh inhalation BID 02/23/21 07/01/21 mcg/dose blistr powdr for inhalation (Advair Diskus) cyclobenzaprine 10 mg tablet mg 08/24/21 sertraline 25 mg tablet 25 mg PO DAILY 08/24/21 08/24/21 Previous Rx's Medication Instructions Recorded ferrous sulfate 325 mg (65 mg 325 mg PO DAILY #30 tabs 07/05/21 iron) tablet prednisone 10 mg tablet 10 mg PO DAILY #70 tabs 07/05/21 carbidopa 25 mg-levodopa 100 mg 1 tab PO BID #60 tabs 07/08/21 tablet cephalexin 500 mg capsule 500 mg PO BID 7 days #14 caps 01/16/22 Allergies Allergy/AdvReac Type Severity Reaction Status Date / Time No Known Drug Allergies Allergy Verified 07/01/21 19:15 Review of Systems Review of Systems ROS Unobtainable: All systems reviewed & are unremarkable except as noted in HPI and below Patient History Medical History Atrial fibrillation COPD (chronic obstructive pulmonary disease) COVID Hyperlipidemia Hypertension Joint pain Kidney stones Trigger finger Surgical History History of hip replacement History of nephrolithotomy with removal of calculi Family History Mother Coronary artery disease Sister Heart problem Social History marital status: household members: family housing: house Smoking Status: Former smoker alcohol intake: former Smoking Status: Former smoker alcohol intake frequency: 0-2 drinks per day Substance Use Type: does not use Exam Narrative Exam Narrative: GENERAL: Alert and oriented x three, elderly female in mild distress. Patient does become tearful during discussion about end of life goals. HEENT: Head normocephalic, atraumatic, EOMI, pupils reactive, face symmetric, moist mucous membranes NECK: Supple, full range of motion CARDIOVASCULAR: Irregularly irregular rate and rhythm without murmurs, rubs or gallops. + JVD. Swelling bilateral lower and upper extremities 2+. RESPIRATORY: Breath sounds equal bilaterally, no wheezes rales or rhonchi. ABDOMEN: Soft, nontender. Nondistended. Normoactive bowel sounds all 4 quadrants. 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 Neurovascularly intact NEUROLOGICAL: Cranial nerves II through XII grossly intact. Moving all extremities. Mild tremor. SKIN: Warm, dry, no petechiae, no rashes or lesions. Initial Vital Signs Initial Vital Signs: Vital Signs Pulse Rate 67 01/16/22 07:19 Course Orders Ordered: ED Orders 01/16/22 11:04 Urinalysis Screen (Dip Only) Stat Urine Culture Stat Urine Microscopic Stat Discontinued Medications Cephalexin HCl (Cephalexin 250 Mg Capsule) 500 mg PO NOW ONE Stop: 01/16/22 11:52 Last Admin: 01/16/22 12:15 Dose: 500 mg Documented By: AYAH Sodium Chloride (Normal Saline 0.9%) 500 mls @ 1,000 mls/hr IV BOLUS ONE Stop: 01/16/22 09:25 Last Infusion: 01/16/22 11:58 Dose: 0 mls/hr Documented By: Admin: 01/16/22 09:56 Dose: 1,000 mls/hr Documented By: LOI Vital Signs Vital signs: Vital Signs - 8 hr 01/16/22 11:30 01/16/22 11:30 01/16/22 12:00 Pulse Rate 100 H Respiratory Rate 12 Blood Pressure 136/61 120/70 Pulse Oximetry 100 01/16/22 12:00 Pulse Rate 98 H Respiratory Rate 13 Blood Pressure Pulse Oximetry 99 Medical Decision Making Lab Data Result diagrams: 01/16/22 07:34 01/16/22 07:34 Labs: Lab Results 01/16/22 01/16/22 01/16/22 Range/Units 07:34 07:34 07:34 WBC 6.0 (4.5-11.0) X10^3/uL RBC 3.65 L (4.0-5.2) X10^6/uL Hgb 10.6 L (12.0-16.0) g/dL Hct 32.4 L (36-46) % MCV 88.9 (80-100) fL MCH 29.1 (26-34) PG MCHC 32.7 (30-36) % RDW 17.0 H (11.6-14.8) % Plt Count 374 (150-400) X10^3/uL Neut % (Auto) 64.5 (50-75) % Lymph % (Auto) 20.4 L (25-40) % [place] % (Auto) 12.3 (3-14) % Eos % (Auto) 2.4 (2-4) % Baso % (Auto) 0.4 (0-2) % Neut # (Auto) 3900 (9273-8234) /uL Lymph # (Auto) 1200 (1295-9781) /uL [place] # (Auto) 700 (0-900) /uL Eos # (Auto) 100 (0-450) /uL Baso # (Auto) 0 (0-100) /uL Sodium 135 L (137-145) mmol/L Potassium 4.0 (3.4-5.1) mmol/L Chloride 98 (98-107) mmol/L Carbon Dioxide 32 (22-32) mmol/L BUN 7 (7-17) mg/dL Creatinine 0.73 (0.52-1.04) mg/dL Estimated GFR > 60 (>60) mL/min BUN/Creatinine Ratio 9.6 (6-22) Glucose 83 (80-110) mg/dL Calcium 8.0 L (8.4-10.2) mg/dL Magnesium 1.8 (1.6-2.3) mg/dL Total Bilirubin 1.0 (0.2-1.3) mg/dL AST 50 H (14-36) IU/L ALT 24 (<35) IU/L Alkaline Phosphatase 162 H (38-126) U/L Total Creatine Kinase 105 (30-135) U/L CK-MB (CK-2) 2.32 (<2.37) ng/mL CK-MB (CK-2) Rel Index 2.2 (1.5-5.0) % Troponin I 0.025 (0.01-0.034) ng/mL NT-Pro-B Natriuret Pep 3670 H (<450) pg/mL Total Protein 5.7 L (6.3-8.2) g/dL Albumin 2.7 L (3.5-5.0) g/dL Globulin 3.0 (1.7-4.1) g/dL Albumin/Globulin Ratio 0.9 L (1.0-2.8) Lipase 30 (23-300) U/L Urine Color Urine Appearance Urine pH (4.5-8.0) Ur Specific [place] (1.000-1.035) Urine Protein (Negative) Urine Glucose (UA) (Negative) g/dL Urine Ketones (NEGATIVE) Urine Occult Blood (Negative) Urine Nitrate (Negative) Urine Bilirubin (NEGATIVE) Urine Urobilinogen (0.2) E.U./dL Ur Leukocyte Esterase (NEGATIVE) Urine RBC Urine WBC Urine Bacteria Ur Culture Indicated? Micro UA Comment SARS-CoV-2 (PCR) (Negative) 01/16/22 01/16/22 Range/Units 07:34 11:04 WBC (4.5-11.0) X10^3/uL RBC (4.0-5.2) X10^6/uL Hgb (12.0-16.0) g/dL Hct (36-46) % MCV (80-100) fL MCH (26-34) PG MCHC (30-36) % RDW (11.6-14.8) % Plt Count (150-400) X10^3/uL Neut % (Auto) (50-75) % Lymph % (Auto) (25-40) % [place] % (Auto) (3-14) % Eos % (Auto) (2-4) % Baso % (Auto) (0-2) % Neut # (Auto) (0837-3671) /uL Lymph # (Auto) (7827-1618) /uL [place] # (Auto) (0-900) /uL Eos # (Auto) (0-450) /uL Baso # (Auto) (0-100) /uL Sodium (137-145) mmol/L Potassium (3.4-5.1) mmol/L Chloride (98-107) mmol/L Carbon Dioxide (22-32) mmol/L BUN (7-17) mg/dL Creatinine (0.52-1.04) mg/dL Estimated GFR (>60) mL/min BUN/Creatinine Ratio (6-22) Glucose (80-110) mg/dL Calcium (8.4-10.2) mg/dL Magnesium (1.6-2.3) mg/dL Total Bilirubin (0.2-1.3) mg/dL AST (14-36) IU/L ALT (<35) IU/L Alkaline Phosphatase (38-126) U/L Total Creatine Kinase (30-135) U/L CK-MB (CK-2) (<2.37) ng/mL CK-MB (CK-2) Rel Index (1.5-5.0) % Troponin I (0.01-0.034) ng/mL NT-Pro-B Natriuret Pep (<450) pg/mL Total Protein (6.3-8.2) g/dL Albumin (3.5-5.0) g/dL Globulin (1.7-4.1) g/dL Albumin/Globulin Ratio (1.0-2.8) Lipase (23-300) U/L Urine Color Yellow Urine Appearance Clear Urine pH 5.0 (4.5-8.0) Ur Specific [place] <=1.005 (1.000-1.035) Urine Protein Trace H (Negative) Urine Glucose (UA) Negative (Negative) g/dL Urine Ketones Negative (NEGATIVE) Urine Occult Blood Trace-lysed (Negative) Urine Nitrate Positive H (Negative) Urine Bilirubin Negative (NEGATIVE) Urine Urobilinogen 0.2 (0.2) E.U./dL Ur Leukocyte Esterase 3+ H (NEGATIVE) Urine RBC TNP Urine WBC TNP Urine Bacteria TNP Ur Culture Indicated? Culture not indicate Micro UA Comment Qns for microscopic SARS-CoV-2 (PCR) Negative (Negative) Imaging Data Chest x-ray: Radiologist's Impression: Close Chest X-Ray (Signed) Lucien Villalobos - 01/16/22 Echocardiogram Ultrasound (Signed) Marbella Cali - 12/02/21 Telemetry Strips 07/01/21 Chest X-Ray (Signed) Robert Ulrich - 07/01/21 Abdomen Ultrasound (Signed) Caitlin Wadsworthic - 06/24/21 Telemetry Strips 06/24/21 Chest/Abdomen/Pelvis CT (Signed) JaileneBen cernaliz - 06/24/21 Chest X-Ray (Signed) Lashawn Clark - 06/24/21 Telemetry Strips 01/18/21 Telemetry Strips 12/03/20 Hip X-Ray (Signed) Supa Hendricks - 11/07/20 Abdomen/Pelvis CT (Signed) Supa Hendricks - 03/28/20 Launch?[place] [address] XRay Report Signed Patient: Berna House MR#: [id number] : 1945 Acct:[id number] Age/Sex: 76 / F Date of Service: 01/16/22 Loc: Accession Number: [id number] ?? Procedure: XR chest 1V Ordering Provider: Jammie Marie D.O. PROCEDURE:? XR CHEST 1V ? INDICATIONS:? chest pain ? TECHNIQUE:? One view of the chest was acquired.? ? COMPARISON:? [facility], CR, XR CHEST 1V, 07/01/2021, 19:56.? [facility], CR, XR CHEST 1V, 06/24/2021, 5:04. ? FINDINGS:? ? Surgical changes and devices:? None.? ? Lungs and pleura:? Similar senescent lung markings, with probable scarring.? No new consolidation or pneumothorax. ? Mediastinum:? Similar cardiomediastinal contour. ? Bones and chest wall:? No suspicious bony lesions.? Overlying soft tissues appear unremarkable.? ? IMPRESSION:? Compared to 07/01/2021, similar senescent lung markings.? No new dense consolidation.? No pneumothorax.? Similar cardiomediastinal contour. ? ? Dictated by: Lucien Villalobos M.D. on 01/16/2022 at 7:55 ? ? Approved by: Lucien Villalobos M.D. on 01/16/2022 at 7:56?? ECG Data Attestation: I personally reviewed and interpreted this ECG as follows: Interpretation: AFib with rapid ventricular response rate of 107 QRS of 68 QTC of 427. No acute ST elevation appreciated patient does have some T-wave inversion in lateral leads. Patient has prior from 07/01/2021 ST depression does seem slightly increased in lateral leads. MDM Narrative Medical decision making narrative: This is a 76-year-old female with increasing swelling of extremities, decreased oral intake for the last several days and some episodes of confusion. Patient does seem to be intravascularly depleted but extra vascularly fluid overloaded. Given a small fluid bolus they do note she had her Lasix decreased in December on the by her senior benefits analyst. There should been discussion about pacemaker placement she is in AFib today slightly tachycardic but blood pressure is appropriate. Troponins 0.025 CMP and CBC do not show major changes. After discussion with patient and family they are expressing interest in hospice patient feels she is nearing the end of her life and from her description I would agree. They have had experience with hospice with another family member in the past and patient is she would like to return home. She is with her son whom she lives with. Plan to obtain urine they are open to antibiotics if she had a UTI, likely increase her Lasix at this time and consulted with hospice about potential meeting with patient and family this week and patient is hospice appropriate. Patient's urine does show signs of nitrates concerning for infection would go ahead and treat patient's family okay with this. Was given a small fluid bolus but discussed increasing her Lasix back up to 40 mg. We were able to establish initial referral to hospice and they should be reaching out Monday or Monday our social services aide upstairs will also help follow-up tomorrow to help facilitate follow-up and patient and family would like to return home. Discharge Plan Departure Patient Disposition: Home Clinical Impression: Acute UTI, Atrial fibrillation Instructions: DI for Urinary Tract Infection (UTI) Activity Restrictions/Additional Instructions: Please follow-up with hospice so that you can with to see what they are offering and if this is best fit for you. I think this might be very helpful to you and your family to reach your goals. You can reach out to [facility], info is included. We have started the process for referral but may take several days to set up a visit. Social work also plans to follow up by phone to help facilitate follow up. Your cardiology team can also discuss with your goals of care at your tele visit and may be helpful in adjusting medications as needed as well. I would recommend increasing your Lasix back to 40 mg daily (1 tablet), from your prior 20 mg (1/2 tablet). Your urine does show signs of infection. Please take antibiotic until completely gone. Prescription sent to [facility] in [place] Please return for new or rapidly worsening symptoms, difficulty with breathing, pain, or if you feel that you need additional assistance. Prescriptions: New cephalexin 500 mg capsule 500 mg PO BID 7 Days Qty: 14 0RF No Action carbidopa-levodopa 25-100 mg tablet 1 tab PO BID Qty: 60 0RF atorvastatin 20 mg tablet 20 mg PO DAILY citalopram 20 mg tablet 20 mg PO DAILY hydrocodone-acetaminophen 7.5-325 mg tablet 1 tab PO Q4HR PRN (Reason: Pain, Severe) Label Comments: TAKE 1 TABLET BY MOUTH EVERY 4 TO 6 HOURS NEEDED gabapentin 300 mg capsule 300 mg PO TID diltiazem HCl 120 mg capsule,extended release 24hr 120 mg PO DAILY Label Comments: Pt confirmed that she takes this med and this dose this AM. 07/03/21 montelukast 10 mg tablet 10 mg PO DAILY albuterol sulfate [ProAir HFA] 90 mcg/actuation HFA aerosol inhaler 90 mcg INHALATION PRN PRN (Reason: Bronchodilation) fluticasone propionate 50 mcg/actuation spray,suspension 50 mcg INTRANASAL BID ibandronate 150 mg tablet 150 mg PO USEASDIRECTD levalbuterol HCl 1.25 mg/3 mL Solution For Nebulization 1.25 mg INHALATION QID fluticasone propion-salmeterol [Advair Diskus] 250-50 mcg/dose Blister With Device 1 inh INHALATION BID carbidopa-levodopa 25-100 mg Tablet 1 tab PO BEDTIME cyclobenzaprine 10 mg Tablet sertraline 25 mg Tablet 25 mg PO DAILY ferrous sulfate 325 mg (65 mg iron) Tablet 325 mg PO DAILY Qty: 30 0RF prednisone 10 mg tablet 10 mg PO DAILY Qty: 70 0RF Rx Instructions: Taper: 40mg daily for 1 week, 30mg daily for one week, 20mg daily for one week, 10mg daily for one week, then stop Referrals: Citlali Wei MD [Primary Care Provider] - Visit Report Forms: Patient Portal/API
[2022-01-16 09:26] LABS: COVID19 -Nasal RAPID Negative (Negative)
[2022-01-16 09:35] LABS: NT-proBNP (BNP-Adult 18+) 3670 pg/mL (<450)
--- NOTE | 2022-01-16 09:45 | PC.NURSE ---
called to get [facility] consult, reached call center, rn to call me back [phone]
[2022-01-16] MEDS: SODIUM CHLORIDE 0.9% 500 ML 1000 ML IV (09:56)
--- NOTE | 2022-01-16 10:55 | PC.NURSE ---
OOB to commode with 2 max assist. Pt tolerated well. urine obtained and sent to lab. Pt unable to stand on her own.
[2022-01-16 11:12] LABS: Appearance Urine UA CLEAR; Bilirubin Urine UA NEGATIVE (NEGATIVE); Color Urine UA YELLOW; Glucose Urine UA NEGATIVE (Negative); Ketones Urine UA NEGATIVE (NEGATIVE); Leukocyte Esterase Urine UA 3+ (NEGATIVE); Nitrite Urine UA POSITIVE (Negative); Occult Blood Urine UA TRACE-LYSED (Negative); Protein Urine UA TRACE (Negative); Specific Gravity Urine UA <=1.005 (1.000-1.035); Urobilinogen Urine UA 0.2 E.U./dL (0.2)
[2022-01-16 11:14] LABS: Urine Comments QNS FOR MICROSCOPIC
--- NOTE | 2022-01-16 11:20 | PC.NURSE ---
second call to get hospice referral set up [phone]
[2022-01-16] MEDS: cephALEXin 250 MG CAPSULE 500 MG PO (12:15)
--- NOTE | 2022-01-16 12:17 | PC.NURSE ---
hospice [facility] ph # [phone] spoke with hospice home care coordinator and forming operator upstairs at [facility]. setting up referall for hospice with [facility]. faxed over all clinicals to [facility] fax # [phone] brochure with patient and her son. requested that hospice [facility] reach out to patient monday01/17/22 regarding home hospice. [employer] EQUIPMENT INSTALLER will follow up with them as well. MD aware and ok with plan
--- NOTE | 2022-01-17 12:22 | CM.SWNOTE ---
GERMINATION TESTING MANAGER f/u Note GERMINATION TESTING MANAGER calls [facility] and it is reported that they received patient referral and plan to reach out to patient and family today. GERMINATION TESTING MANAGER attempts to call patient's number but it is not answering calls at this time. GERMINATION TESTING MANAGER calls patient's son [place] and informs him that [facility] will reach out to initiate referral today. GERMINATION TESTING MANAGER informed him that patient's phone was not working and he was aware. Margaret Encarnacion, ZIGZAG MACHINE OPERATOR
== END 2022-01-16 12:35 | disposition home or self-care (01) ==
PROVIDERS: Emergency Provider Emergency Medicine; PCP Internal Medicine
DX: N39.0 Urinary tract infection, site not specified (principal); I48.91 Unspecified atrial fibrillation; R07.9 Chest pain, unspecified; R00.0 Tachycardia, unspecified; R41.0 Disorientation, unspecified; G20 Parkinson's disease; R63.0 Anorexia; Z20.822 Contact with and (suspected) exposure to COVID-19
CPT/HCPCS: 36415; 71045; 80053; 81003; 81015; 82550; 82553; 83690; 83735; 83880; 84484; 85025; 87077; 87086; 87186; 87635; 93005; 93010; 96360; 96361; 99284; 99285; C9803